=== PATIENT | female | born 1985 | race Caucasian/White ===

== ENCOUNTER 2023-01-18 12:59 | Outpatient (AMB) | payer OTHER, SELFPAY ==
--- NOTE | 2023-01-18 13:34 | MHC.OFFWIV ---
Intake Vital Signs 01/18/23 13:35 Height 5 ft 7 in Weight 253 lb BMI 39.6 BP 112/70 Blood Pressure Location Lt brachial Position Sitting Pulse 114 H Pulse Source Pulse Oximeter Temp 97 F Temp Source Temporal Artery Scan Pulse Oximetry (%) 99 Oxygen Delivery Method Room Air Intake Visit Reasons: EST/sinus inf? Intake Note: Pt is here c/o possible sinus infection. Pt states since yesterday she has had a soft cough, and chest congestion. Patient Tobacco Use Status: Never used Tobacco Allergies No Known Allergies Allergy (Verified 01/18/23 13:38) Do you need a note to return to daycare/school/sports/work: No HPI EST/sinus inf? HPI Details Patient presents for a sick visit. Reporting symptoms of sinus congestion, sore throat and difficulty swallowing. Low-grade fever. No family member is sick. No recent travel. Patient reports symptoms of malaise and fatigue. PFSH Social History Patient Tobacco Use Status: Never used Tobacco Physical Exam Vital Signs: Last Vital Signs Temp 97 F 01/18/23 13:35 Pulse 114 H 01/18/23 13:35 BP 112/70 01/18/23 13:35 Pulse Ox 99 01/18/23 13:35 Oxygen Delivery Method Room Air 01/18/23 13:35 BMI result Body Mass Index 39.6 Const General: cooperative and healthy appearing Nutritional Appearance: well nourished Orientation/consciousness: patient oriented x3 Limitations: no limitations HEENT Head: Yes normal to inspection Eyes General: appearance normal, both eyes and all related structures Neck Neck: Yes normal visual inspection Chest Chest palpation & inspection: normal palpation of entire chest wall Resp Effort & Inspection: normal respiratory effort Neuro General: patient oriented x3 Assessment & Plan Assessment & Plan (1) Upper respiratory tract infection: Code(s): J06.9 - Acute upper respiratory infection, unspecified Plan: Antibiotics ordered. Increase fluid intake. Tylenol for aches and pains. If symptoms worsen, follow-up here for a recheck. Coding Level of Care Code Est Pt Level 3 (41478) Diagnoses Upper respiratory tract infection J06.9
[2023-01-18 13:35] VITALS: BP 112/70; PULSE 114; TEMP 36.1; O2SAT 99; BMI 39.6
== END 2023-01-18 14:46 | disposition home or self-care (01) ==
PROVIDERS: Visit Provider Internal Medicine
DX: J06.9 Acute upper respiratory infection, unspecified (principal)
CPT/HCPCS: 99213

== ENCOUNTER 2024-04-15 05:16 | Emergency (ER) | payer OTHER, SELFPAY ==
--- NOTE | ~2024-04-15 | XR_ITS ---
EXAMINATION: XR CHEST CLINICAL INFORMATION: cough, SOB COMPARISON: None available. TECHNIQUE: Frontal view of the chest was obtained. FINDINGS: Normal appearance of the cardiomediastinal structures. No effusions or pneumothoraces. Normal pattern of pulmonary vasculature. No focal pulmonary consolidation. XR/XR chest 1V IMPRESSION: Normal chest. Lungs clear. Electronically signed by: Sagn Oquendo MD 04/15/2024 05:41 AM [facility]
[2024-04-15 05:19] VITALS: BP 141/92; PULSE 110; RESP 22; TEMP 37.5; O2SAT 95; BMI 39.1
--- NOTE | 2024-04-15 05:32 | ED.URI ---
HPI - URI/Sore Throat General Chief Complaint: Upper Respiratory Symptoms Stated Complaint: 89 O2, SOB Time Seen by Provider: 04/15/24 05:30 Source: patient and old records reviewed Mode of arrival: EMS Limitations: no limitations History of Present Illness ED Provider: FANI CHARLES Narrative: 38 yo female with PMH of asthma, just had COVID one month ago has had at least 3 vaccinations did well with COVID illness now here with c/o 1 week cough dyspnea shortness of breath body aches - fevers and chills. Went to this week negative covid and flu - Rx OTC medications. She does have inhaler at home. Comes in today with worsening cough, dyspnea not feeling well. No recent travel and not around sick children. Able to tolerate PO. MD elicited complaint: fever and cough Onset (ago): day(s) (7) Consistency: intermittent Severity: moderate Able to tolerate fluids by mouth: Yes Exacerbating factors: other (coughing, exertion) Relieving factors: NSAID and other Associated symptoms: fever, chills, myalgias, headache, rhinorrhea, cough and shortness of breath Treatments prior to arrival: cold medicine Related Data Home Medications ?Medication ?Instructions ?Recorded ?Confirmed albuterol sulfate 90 mcg/actuation 1 inh inhalation ONCE 01/18/23 aerosol inhaler buspirone 30 mg tablet 20 mg PO BID 01/18/23 methylphenidate HCl 36 mg 36 mg PO QAM 01/18/23 tablet,extended release 24 hr (Concerta) prazosin 2 mg capsule 2 mg PO DAILY 01/18/23 trazodone 150 mg tablet 225 mg PO DAILY 01/18/23 triamcinolone acetonide 0.1 % 1 appl topical DAILY 01/18/23 topical cream venlafaxine 100 mg tablet 225 mg PO DAILY 01/18/23 Previous Rx's ?Medication ?Instructions ?Recorded azithromycin 250 mg tablet See Rx Instructions PO .COMPLEX #6 01/18/23 tabs azithromycin 250 mg tablet See Rx Instructions PO .COMPLEX #6 04/15/24 tabs hydrocodone-homatropine 5 mg-1.5 5 ml PO Q6H PRN cough #80 mL 04/15/24 mg/5 mL oral syrup prednisone 20 mg tablet 40 mg (2 x 20 mg) PO DAILY 5 days 04/15/24 #10 tabs Allergies Allergy/AdvReac Type Severity Reaction Status Date / Time No Known Allergies Allergy Verified 04/15/24 05:24 Review of Systems Review of Systems: Constitutional : pos Fever, pos Chills ENT/Mouth : No Hoarseness, No sore throat, No Rhinorrhea Eyes: No Redness, No Discharge, No Vision Changes Cardiovascular : No Chest Pain, positive SOB, positive Dyspnea on Exertion, No Edema Respiratory : positive Cough, No Sputum, positive Wheezing, Gastrointestinal : No Nausea, No Vomiting, No Diarrhea, No abdominal Pain Genitourinary : No Dysuria, No Hematuria Musculoskeletal : No joint pain, No Myalgias Skin : No rash Neuro : pos Weakness, No Numbness, No Headache Psych : No anxiety, depression All other systems reviewed and are negative [facility] Past Medical History Attestation statement: The following information was validated with the patient. Source: old records reviewed Medical History (Updated 04/15/24 @ 05:59 by Orin Adan DO) Asthma Social History Social History Patient Tobacco Use Status: Never used Tobacco Smoked in Last 30 Days: No Use of substances other than those prescribed or required for medical reasons: No Advance Directives: No Advance Directives Information Provided: Yes Do you have a plan to hurt others: No Plan Physical Exam Vital Signs: Vital Signs: Last Vital Signs Temp 98.5 F 04/15/24 06:53 Pulse 114 H 04/15/24 06:53 Resp 18 04/15/24 06:53 BP 114/67 04/15/24 06:53 Pulse Ox 95 04/15/24 06:53 O2 Del Method Room Air 04/15/24 06:53 BMI result Body Mass Index 39.1 Appearance: Alert. Oriented X3. No acute distress. Eyes: Pupils equal, round and reactive to light. ENT: Pharynx normal. Neck: Normal inspection. Neck supple. CVS: Normal heart rate and rhythm. Pulses normal. Respiratory: No respiratory distress. Breath sounds mild diffuse posterior exp wheeze, rhonchi noted Abdomen: Soft and nontender. Skin: Skin warm and dry. Normal skin color. Normal skin turgor. Extremities: No lower extremity edema. No calf ttp Neuro: Oriented X 3. No motor deficit. No sensory deficit. Medications Administered Discontinued Medications Generic Name Dose Route Start Last Admin Trade Name Freq PRN Reason Stop Dose Admin Acetaminophen 650 mg 04/15/24 05:29 04/15/24 05:45 Acetaminophen 325 Mg Tablet PO 04/15/24 05:30 650 mg ONCE ONE Administration Albuterol Sulfate 7.5 mg/ 10 mg 04/15/24 05:49 04/15/24 05:54 Albuterol Sulfate 2.5 mg INHALE 04/15/24 05:50 10 mg ONCE ONE Administration Sodium Chloride 1,000 mls @ 999 mls/hr 04/15/24 05:29 04/15/24 05:46 Ns IV 04/15/24 06:29 999 mls/hr .Q1H1M ONE Administration Ketorolac Tromethamine 15 mg 04/15/24 05:37 04/15/24 05:44 Ketorolac Tromethamine 15 Mg/Ml Vial IVPUSH 04/15/24 05:38 15 mg ONCE ONE Administration Methylprednisolone Sodium Succinate 60 mg 04/15/24 05:37 04/15/24 05:45 Methylprednisolone Sod Succ 125 Mg/2 Ml Vial IVPUSH 04/15/24 05:38 60 mg ONCE ONE Administration Medical Decision Making Medical Decision Making MDM Narrative: 38 yo female with PMH of asthma, just had COVID one month ago now here with 1 week cough, fevers, chills not feeling well and some rhonchi - wheezes. No travel or sick contacts at this time basic labs, CXR for pneumonia, viral panel and start on nebs or steroids - she is not hypoxic or labored seems more viral vs bronchitis Differential Diagnosis Differential Diagnoses: The differential diagnosis associated with the presentation includes viral syndrome vs bronchitis Admission/Observation Consideration of admission/observation: Escalation of care including admission/observation considered no hypoxia, not labored has not been on abx or steroids will trial as outpatient feels safe to go home Lab Data MDM Lab Attestation statement: I reviewed the patient's lab results. 04/15/24 05:51 04/15/24 05:51 Labs: Lab Results 04/15/24 04/15/24 Range/Units 05:48 05:51 WBC 12.6 H (4.8-10.8) X10*3/uL RBC 4.84 (4.20-5.50) X10*6/uL Hgb 14.0 (12.0-16.0) g/dl Hct 41.3 (37.0-47.0) % MCV 85.3 (80.0-98.0) fL MCH 28.9 (27.0-33.0) pg MCHC 33.9 (31.0-35.0) g/dl RDW 12.4 (11.0-16.0) % Plt Count 207 (160-400) X10*3/uL MPV 10.2 (9.4-12.3) fL Immature Gran % (Auto) 0.3 (0.0-0.4) % Neut % (Auto) 86.8 H (45-73) % Lymph % (Auto) 6.6 L (20-40) % [place] % (Auto) 5.9 (2-11) % Eos % (Auto) 0.2 (0-4) % Baso % (Auto) 0.2 (0-2) % Lymph # (Auto) 0.8 L (1.2-4.9) X10*3/uL [place] # (Auto) 0.8 (0.1-1.2) X10*3/uL Eos # (Auto) 0.0 (0.0-0.4) X10*3/uL Baso # (Auto) 0.0 (0.0-0.2) X10*3/uL Abs Immat Gran (auto) 0.04 H (0.00-0.03) X10*3/uL Absolute Neuts (auto) 10.9 H (2.0-8.3) x10*3/uL Absolute Nucleated RBC 0.000 (0.0-0.012) X10*3/uL Nucleated RBC % (auto) 0.0 (0.0-0.2) /100WBC Sodium 135 (135-145) mmol/L Potassium 4.0 (3.3-5.1) mmol/L Chloride 105 (96-108) mmol/L Carbon Dioxide 20 L (22-29) mmol/L Anion Gap 14 (12-20) BUN 13 (9-16) mg/dL Creatinine 0.83 (0.5-1.4) mg/dL Estim Creat Clear Calc 120.5 Estimated GFR > 60 Random Glucose 102 (60-115) mg/dL Calcium 8.6 (8.4-10.2) mg/dL Total Bilirubin 0.4 (0.0-1.0) mg/dL AST 15 (5-31) U/L ALT 10 (0-31) U/L Alkaline Phosphatase 78 (39-117) U/L Total Protein 7.3 (6.5-8.0) g/dL Albumin 3.9 (3.5-5.0) g/dL Beta HCG, Quant < 2 mIU/mL Influenza Type A (PCR) NEGATIVE (Negative) Influenza Type B (PCR) NEGATIVE (Negative) RSV RNA Qual (PCR) NEGATIVE (Negative) SARS-CoV-2 RNA (RT-PCR) NEGATIVE (Negative) Independent Interpretation I performed an independent interpretation of an: Plain X-Ray (normal ) Radiology Impression Discussion of test interpretation with radiology: I have reviewed the radiologist's reading. External Record Review External record reviewed: Outpatient record Prescription Management I considered prescription management with: Pain Medication, Antibiotic and Other Discharge Plan Discharge Clinical Impression: Bronchitis Patient Disposition: Home, Self-Care Instructions: Acute Bronchitis (ED) Additional Instructions: chest xray is normal please continue your inhaler take antibiotic and prednisone as prescribed return for any worsening symptoms or concerns so short of breath you cannot walk to your bathroom chest pain On azithromycin, call your provider if you develop new ringing in your ears, new problems hearing, dizziness, palpitations, abdominal pain, nausea, or diarrhea. Prescriptions: New azithromycin 250 mg tablet See Rx Instructions .ROUTE .COMPLEX Qty: 6 0RF Rx Instructions: For 250 mg dose pack: take 500 mg today (day 1), then 250 mg for 4 days (days 2-5) prednisone 20 mg tablet 40 mg PO DAILY 5 Days Qty: 10 0RF hydrocodone-homatropine 5-1.5 mg/5 mL syrup 5 ml PO Q6H PRN (Reason: cough) Qty: 80 0RF Rx Instructions: Partial Fill upon patient request. No Action methylphenidate HCl [Concerta] 36 mg tablet extended release 24hr 36 mg PO QAM prazosin 2 mg capsule 2 mg PO DAILY trazodone 150 mg tablet 225 mg PO DAILY venlafaxine 100 mg tablet 225 mg PO DAILY buspirone 30 mg tablet 20 mg PO BID albuterol sulfate 90 mcg/actuation HFA aerosol inhaler 1 inh inhalation ONCE triamcinolone acetonide 0.1 % cream 1 appl topical DAILY azithromycin 250 mg tablet See Rx Instructions PO .COMPLEX Qty: 6 0RF Rx Instructions: take 500 mg today (day 1), then 250 mg for 4 days (days 2-5) PO Print Language: Guyanese
[2024-04-15] MEDS: Ketorolac Tromethamine 15 MG/ML VIAL IVPUSH (05:44)
[2024-04-15] MEDS: Acetaminophen 325 MG TABLET 650 MG PO (05:45)
[2024-04-15] MEDS: methylPREDNISolone Sod Succ 125 MG/2 ML VIAL 60 MG IVPUSH (05:45)
[2024-04-15] MEDS: 0.9 % Sodium Chloride 1,000 ML 999 ML IV (05:46)
[2024-04-15] MEDS: Albuterol Sulfate 7.5 MG, Albuterol Sulfate (0.083%) 2.5 MG 10 MG INHALE (05:54)
[2024-04-15 05:55] LABS: Basophils Percent Auto 0.2 % (0-2); Eosinophils Percent Auto 0.2 % (0-4); Hematocrit 41.3 % (37.0-47.0); Imm Gran Abs Auto 0.04 X10*3/uL (0.00-0.03); Imm Gran Pct Auto 0.3 % (0.0-0.4); Lymphocytes Absolute Auto 0.8 X10*3/uL (1.2-4.9); Lymphocytes Percent Auto 6.6 % (20-40); MANUAL DIFF FLAG NO; Mean Corpuscular HGB Conc 33.9 g/dl (31.0-35.0); Mean Corpuscular Hemoglobin 28.9 pg (27.0-33.0); Mean Corpuscular Volume 85.3 fL (80.0-98.0); Mean Platelet Volume 10.2 fL (9.4-12.3); Monocytes Absolute Auto 0.8 X10*3/uL (0.1-1.2); Monocytes Percent Auto 5.9 % (2-11); Neutrophils Absolute Auto 10.9 x10*3/uL (2.0-8.3); Neutrophils Percent Auto 86.8 % (45-73); Platelet Count 207 X10*3/uL (160-400); Red Blood Count 4.84 X10*6/uL (4.20-5.50); Red Cell Distribution Width 12.4 % (11.0-16.0); White Blood Count 12.6 X10*3/uL (4.8-10.8)
[2024-04-15 05:58] VITALS: PULSE 117; RESP 16; O2SAT 96
[2024-04-15 06:19] LABS: Alanine Aminotransferase 10 U/L (0-31); Albumin Level 3.9 g/dL (3.5-5.0); Alkaline Phosphatase 78 U/L (39-117); Anion Gap 14 (12-20); Aspartate Amino Transferase 15 U/L (5-31); Bilirubin Total 0.4 mg/dL (0.0-1.0); Blood Urea Nitrogen 13 mg/dL (9-16); Calcium 8.6 mg/dL (8.4-10.2); Carbon Dioxide 20 mmol/L (22-29); Chloride 105 mmol/L (96-108); Creatinine Clr Calc Pharmacy 120.5; Estimated Glomerular Filt Rate > 60; Glucose Random 102 mg/dL (60-115); Sodium 135 mmol/L (135-145); Total Protein 7.3 g/dL (6.5-8.0)
[2024-04-15 06:20] LABS: HCG Quantitative < 2 mIU/mL
[2024-04-15 06:32] LABS: Influenza A PCR NEGATIVE (Negative); Influenza B PCR NEGATIVE (Negative); Resp Syncy Virus RNA Qual PCR NEGATIVE (Negative); SARS COV2 PCR INHOUSE NEGATIVE (Negative)
[2024-04-15 06:34] VITALS: O2SAT 95
--- NOTE | 2024-04-15 06:36 | PC.NURSE ---
Iv placed, labs collected and sent, breathing treatment given by respiratory
[2024-04-15 06:53] VITALS: BP 114/67; PULSE 114; RESP 18; TEMP 36.9; O2SAT 95
[2024-04-15 07:21] VITALS: BP 114/67; PULSE 114; RESP 18; TEMP 36.9; O2SAT 95
== END 2024-04-15 07:21 | disposition home or self-care (01) ==
PROVIDERS: Emergency Provider Emergency Medicine; PCP Internal Medicine
DX: J40 Bronchitis, not specified as acute or chronic (principal); Z03.818 Encounter for observation for suspected exposure to other biological agents ruled out; R06.02 Shortness of breath; R05.9 Cough, unspecified
CPT/HCPCS: 0241U; 71045; 80053; 84702; 85025; 94640; 96361; 96374; 96375; 99284; 99285; J1885; J2919

== ENCOUNTER 2024-06-09 09:55 | Outpatient (AMB) | payer OTHER, SELFPAY ==
--- NOTE | 2024-06-09 10:21 | A.OFFPC_ITS ---
Vital Signs 06/09/24 10:32 Height 5 ft 7 in Weight 268 lb 4 oz BMI 42.0 BP 114/70 Blood Pressure Location Rt brachial Position Sitting Respiration 14 Pulse 90 Pulse Source Pulse Oximeter Pulse Oximetry (%) 97 Oxygen Delivery Method Room Air Intake Visit Reasons: DOCUMENTATION SPEC-EST CARE Intake Note: establish care/ audiology referral rhuemotologist referral acid reflux and a cough since nov pt has also been experiencing dizziness when standing. Is last menstrual period known: Yes Last menstrual period: 06/09/24 Post menopausal: No Patient : No Allergies No Known Allergies Allergy (Verified 06/09/24 10:26) Medication List - Last Reconciled 06/09/24 by Saurav Mendoza MD albuterol sulfate 90 mcg/actuation 1 inh inhalation ONCE methylphenidate HCl ER 36 mg PO DAILY trazodone 225 mg PO DAILY triamcinolone acetonide 0.1% 1 appl topical DAILY venlafaxine 225 mg PO DAILY Tobacco use date assessed: 06/09/24 Dental Screening Dental Screen Date: 06/09/24 Did you have a dental visit in the last 12 months?: No Did you have a dental problem in the last 6 months where you did not have access to dental care?: No HPI DOCUMENTATION SPEC-EST CARE HPI Details New Patient? ?? Prior PCP:? [place] in [place]. Last office visit/CPE:? 2020 Acute issue(s):? Psoriatic Arthritis. Was on Humira Cough since Mar ?? PMHx:? Psoriasis, Psoriatic Arthritis, Asthma, Celiac, ADD, Anxiey & Depression, SurgHx:?None FHx:?Mom: Weight, Depression Dad: Unknown. SocHx: Nonsmoker, EtOH 1 dr a few nights a week. 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 1. Little interest or pleasure in doing things: not at all 2. Feeling down, depressed, or hopeless: not at all 3. Trouble falling or staying asleep, or sleeping too much: not at all 4. Feeling tired or having little energy: not at all 5. Poor appetite or overeating: not at all 6. Feeling bad about yourself - or that you are a failure or have let yourself or your family down: several days 7. Trouble concentrating on things, such as reading the newspaper or watching television: several days 8. Moving or speaking so slowly that other people could have noticed. Or the opposite - being so fidgety or restless that you have been moving around a lot more than usual: not at all 9. Thoughts that you would be better off or of hurting yourself in some way: not at all Total score: 2 Depression Screening Interpretation: Negative Depression Screening Done: Yes 65518 - PHQ-9 Billing: Yes Source: Developed by Drs. John Danielson, Anita Maria, German Alvarez and colleagues, with an educational vic from [employer]. Thrive Questionnaire Date Thrive assessed: 06/09/24 I am a: Patient What is your living situation today?: I have a steady place to live Within the past 12 months, did the food you bought not last and you didn't have the money to get more?: Sometimes True Within the past 12 months, did you worry whether your food would run out before you got money to buy more?: Sometimes True Do you have trouble paying for medicines?: No Do you have trouble getting transportation to medical appointments?: Yes Do you have trouble paying your heating and electricity bill?: No Do you have trouble taking care of your child, family member or friend?: No Do you have trouble with day-to-day activities such as bathing, preparing meals, shopping, managing finances, etc.?: Yes Are you currently unemployed and looking for a job?: No Are you interested in more education?: No Please select the resources that you would like help with: None Currently or been in a relationship where the following occur: No concerns reported THRIVE Score: 3 AUDIT C Alcohol Use Questionnaire (AUDIT-C) 1. How often do you have a drink containing alcohol?: 2-4 times a month 2. How many drinks containing alcohol do you have on a typical day when you are drinking?: 1 or 2 3. How often do you have six or more drinks on one occasion?: Never Total Score: 2 MICHAEL-7 AMB Questionnaire MICHAEL-7 Date MICHAEL - 7 assessed: 06/09/24 Feeling nervous, anxious, or on edge: 0 = Not at all Not being able to stop or control worryin = Not at all Worrying too much about different things: 0 = Not at all Trouble relaxin = Several days Being so restless that it is hard to sit still: 1 = Several days Becoming easily annoyed or irritable: 0 = Not at all Feeling afraid as if something awful might happen: 0 = Not at all Total MICHAEL-7 score (0-4 normal; 5-9 mild; 10-14 moderate; 15-21 severe): 2 Source: Developed by Drs. John Danielson, Anita Maria, German Alvarez and colleagues, with an educational vic from [employer]. Review of Systems Const Denies chills, Denies fatigue, Denies fever(s), Denies headache(s) and Denies weakness ENT Denies dizziness and Denies headache(s) Card Denies chest pain, Denies lightheadedness, Denies dyspnea and Denies other (Palpitations) Resp Denies cough, Denies dyspnea, Denies wheezing and Denies other ( shortness of breath) Musc Denies numbness and Denies tingling Neuro Denies dizziness, Denies headache(s), Denies numbness, Denies tingling, Denies paresthesias and Denies weakness Psych Denies anxiety and Denies depression Endo Denies fatigue Aller/Immun Denies wheezing Physical exam (Primary Care) Vital Signs: Last Vital Signs Pulse 90 06/09/24 10:32 Resp 14 06/09/24 10:32 BP 114/70 06/09/24 10:32 Pulse Ox 97 06/09/24 10:32 Oxygen Delivery Method Room Air 06/09/24 10:32 BMI result Body Mass Index 42.0 Tobacco/Smoking Status: Tobacco use Status Tobacco use date assessed 06/09/24 06/09/24 10:32 Patient Tobacco Use Status Never used Tobacco 06/09/24 10:32 e-Cigarette/Vaping Use Never Used 06/09/24 10:32 PHQ-9: PHQ-9 Score PHQ-9: Total score 2 06/09/24 10:36 Depression Screening Interpretation: Negative Thrive Assessment: Date of Thrive Assessment Date Thrive assessed 06/09/24 06/09/24 10:32 Currently or been in a relationship where the following occur: No concerns reported Const General: no acute distress and well developed Nutritional Appearance: well nourished Orientation/consciousness: patient oriented x3 HENMT Head: Yes normocephalic and Yes atraumatic Eyes General: appearance normal, both eyes and all related structures Pupils: Equal, round and reactive pupils present EOM: EOMs intact bilaterally Resp Effort & Inspection: normal respiratory effort Auscultation: clear to auscultation bilaterally Cardio Rate: regular rate Rhythm: regular rhythm Heart sounds: S1 normal heart sound present, S2 normal heart sound present, no gallops, no murmurs and no rubs Neuro General: patient oriented x3 and gait normal Cranial nerves: Yes Equal, round and reactive pupils present Psych Affect: normal affect Coding Level of Care Code New Pt Level 4 (72887) Diagnoses Psoriatic arthritis L40.50 Cough R05.9 Anxiety with depression F41.8 Asthma J45.909 Adult celiac disease K90.0 Difficulty concentrating R41.840 Psoriasis L40.9 GERD (gastroesophageal reflux disease) K21.9 Laboratory exam ordered as part of routine general medical examination Z00.00 Additional Codes PHQ-9 - 04976 - PHQ-9 Billing: Yes ([id number]) Assessment & Plan Assessment & Plan (1) Psoriatic arthritis: Code(s): L40.50 - Arthropathic psoriasis, unspecified Category: Medical Plan: History?of?psoriatic?arthritis?and?Humira?use Will?refer?her?to?Rheumatology (2) Cough: Code(s): R05.9 - Cough, unspecified Category: Medical Plan: Chronic?cough?for?the?last?2?months. Patient?does?have?a?history?of?asthma?and?also?GERD She?has?an?albuterol?inhaler?and?I?am?giving?a?controller?medication?well Will?also?have?her?trial?medication?to?suppress?acid?as?you?may?of?microaspirati on?worsening?cough Checking?chest?x-ray?as?this?has?been?going?on?2?months (3) Anxiety with depression: Code(s): F41.8 - Other specified anxiety disorders Category: Medical Plan: Patient?has?a?psychiatrist?and?is?taking?venlafaxine,?trazodone?and?also?has?met hylphenidate?for?difficulty?concentrating - patient?states?diag nosis?of?ADD?but?I?do?not?have?records?at?present. Appears?stable Continue?current?medications?and?follow-up?with?Psychiatry?as?recommended (4) Asthma: Code(s): J45.909 - Unspecified asthma, uncomplicated Category: Medical Plan: She?is?currently?only?taking?a?rescue?inhaler Has?had?a?chronic?cough?since March?and?lungs?are?clear?with?mild?coarseness Giving?her?a?controller?inhaler?as?well Controlling?acid?reflux Will?follow (5) Adult celiac disease: Code(s): K90.0 - Celiac disease Category: Medical Plan: Patient?following?dietary?restrictions (6) Difficulty concentrating: Code(s): R41.840 - Attention and concentration deficit Category: Medical Plan: As?above,?managed?by?her?psychiatrist?with?methylphenidate (7) Psoriasis: Code(s): L40.9 - Psoriasis, unspecified Category: Medical Plan: History?of?psoriasis?and?psoriatic?arthritis Referring?her?to?Dermatology?and?Rheumatology (8) GERD (gastroesophageal reflux disease): Code(s): K21.9 - Gastro-esophageal reflux disease without esophagitis Category: Medical Plan: As?above?starting?medications?to control?GERD (9) Laboratory exam ordered as part of routine general medical examination: Code(s): Z00.00 - Encounter for general adult medical examination without abnormal findings Category: Medical Plan: Check?labs Plan Patient?also?notes?she?has?concerns?about?hypermobility.??Patient?also?notes?she ?has?concerns?for [place]. We?can?continue?to?address?her?concerns?with?additional?visits. Patient?appears?well?today.??No?acute?distress?and?blood?pressure?and?vitals?are ?within?normal?limits Orders: Orders Comprehensive Inlet. Panel Fast Today Z00.00 - Encounter for general adult medical examination without abnormal findings TSH reflex Free T4 Today Z00.00 - Encounter for general adult medical examination without abnormal findings XR chest 2V Today R05.9 - Cough, unspecified Complete Blood Count Auto Diff Today Z00.00 - Encounter for general adult medical examination without abnormal findings Microalbumin, Random (w Creat) Today I10 - Essential (primary) hypertension Lipid Panel Today Z00.00 - Encounter for general adult medical examination without abnormal findings UA and rflx microscopic Today Z00.00 - Encounter for general adult medical examination without abnormal findings Referrals Rheumatology Referral L40.50 - Arthropathic psoriasis, unspecified Dermatology Referral L40.9 - Psoriasis, unspecified Medications: New famotidine 20 mg PO BEDTIME 30 days 30 tabs 2RF budesonide-formoterol 160-4.5 mcg/actuation (Symbicort) 1 inh inhalation BID 30 days 10.2 grams 2RF J45.909 - Unspecified asthma, uncomplicated omeprazole 20 mg PO DAILY 30 days 30 caps 3RF
[2024-06-09 10:32] VITALS: BP 114/70; PULSE 90; RESP 14; O2SAT 97; BMI 42.0
== END 2024-06-09 11:10 | disposition home or self-care (01) ==
PROVIDERS: PCP Family Medicine; Visit Provider Family Medicine
DX: L40.50 Arthropathic psoriasis, unspecified (principal); R05.9 Cough, unspecified; F41.8 Other specified anxiety disorders; J45.909 Unspecified asthma, uncomplicated; K90.0 Celiac disease; R41.840 Attention and concentration deficit; L40.9 Psoriasis, unspecified; K21.9 Gastro-esophageal reflux disease without esophagitis; Z00.00 Encounter for general adult medical examination without abnormal findings

== ENCOUNTER → 2024-06-09 09:55 | Outpatient (BNVA) | payer OTHER, SELFPAY | PROVIDERS: PCP Family Medicine; Visit Provider Family Medicine | DX: L40.50 Arthropathic psoriasis, unspecified (principal); R05.9 Cough, unspecified; F41.8 Other specified anxiety disorders; J45.909 Unspecified asthma, uncomplicated; K90.0 Celiac disease; R41.840 Attention and concentration deficit; L40.9 Psoriasis, unspecified; K21.9 Gastro-esophageal reflux disease without esophagitis | CPT/HCPCS: 96127; 99202 ==

== ENCOUNTER 2024-08-18 11:56 | Outpatient (AMB) | payer OTHER, SELFPAY ==
--- NOTE | 2024-08-18 12:06 | MHC.PC.OV ---
Vital Signs 08/18/24 12:15 Height 5 ft 7 in BMI Reason not done Patient refused/unable BP 118/68 Blood Pressure Location Lt brachial Position Sitting Respiration 12 Pulse 88 Pulse Source Pulse Oximeter Temp 97.4 F Temp Source Oral Pulse Oximetry (%) 98 Oxygen Delivery Method Room Air Intake Visit Reasons: CPE with f/u labs and health maint. Intake Note: CPE and follow up on labs [employer] Required: No Allergies No Known Allergies Allergy (Verified 08/18/24 12:25) Medication List - Last Reconciled 08/18/24 by Rita Saavedra, [facility]- albuterol sulfate 90 mcg/actuation 1 inh inhalation ONCE budesonide-formoterol 160-4.5 mcg/actuation (Symbicort) 1 inh inhalation BID 30 days calcipotriene 0.005% 1 appl topical BID famotidine 20 mg PO BEDTIME 30 days methylphenidate HCl ER 36 mg PO DAILY omeprazole 20 mg PO DAILY 30 days trazodone 225 mg PO DAILY triamcinolone acetonide 0.1% 1 appl topical DAILY venlafaxine 225 mg PO DAILY Tobacco use date assessed: 08/18/24 Dental Screening Dental Screen Date: 08/18/24 Did you have a dental visit in the last 12 months?: Yes Did you have a dental problem in the last 6 months where you did not have access to dental care?: No Was dental information given to patient?: Patient has dentist HPI HPI Comments History of Present Illness Details 38 y/o F with Psoriasis, Psoriatic Arthritis, Asthma, Celiac, ADD, Anxiey & Depression, GERD SurgHx: None FHx: Mom: Weight, Depression Dad: Unknown. SocHx: Nonsmoker, EtOH 1 dr a few nights a week. No drugs Health Maintenance Tdap admin today Flu admin today Pap referred Specialists Psych Derm first appt in a few months Rheum Optho wears glasses last exam 5 years ago New referral placed today The patient is a 38-year-old female presenting for a wellness visit and preventative health maintenance. - Anxiety and depression are present, and the patient is under psychiatric management with effective treatment. - History includes ADD/ADHD. Needs new prescriber. was at [facility]. has a counselor - She has been referred to [facility] for a Pap smear, and routine breast examination guidance was discussed. - Asthma is self-managed currently without the need for specialist follow-up. Cough improved entirely after starting famotidine and omeprazole. PCP ordered CXR She did not have this done yet; mutually agreed on cancelling this order. Recovering from L foot fracture, fell on ice while walking dogs; managed by orth; starts PT next week Review of Systems - Respiratory: Reports a history of asthma. - Psychiatric: Reports anxiety and depression. - Neuropsychological: Reports history of ADD/ADHD. - Immunologic: Confirms upcoming flu and tetanus vaccines. General: Well developed, well nourished, in no acute distress. Appears stated age. Head: Normocephalic, atraumatic. Eyes: Pupils are equal, round and reactive to light and accommodation. Conjunctivae are clear. Vision grossly normal. Ears: TMs clear AU, EACS WNL Nose: Patent, without discharge. Mouth: There are no ulcers or lesions noted. No inflammation, no post nasal drip, no plaques nor exudates. Neck: Supple, no adenopathy or thyromegaly. Lungs: Clear to auscultation bilaterally. No rales, rhonchi or wheeze noted. Good air flow in all arceo. Heart: Regular rate and rhythm. No murmurs, click, rubs or gallops are noted. Abdomen: Bowel sounds present in all quadrants. The abdomen is soft, nontender, with no masses or organomegaly noted. No hernias are noted. Musculoskeletal: Joints are nontender, without swelling, redness, or effusions. Range of motion is observed to be normal. Pulses: Peripheral pulses are equal and palpable bilaterally. Extremities: No clubbing, cyanosis nor edema is noted. L foot in walking boot Neurologic: Gait and station normal. Cranial Nerves 2-12 intact. Motor strength grossly symmetrical and intact. No sensory loss. Balance normal. Skin: No rashes, ulcers, or lesions noted. Turgor is good. Skin color is good. Hair and nails are without abnormalities. Psych: Normal eye contact, affect and mood appropriate, and normal interactions. Patient is alert and appropriate to context. Discussion Notes During the visit, we discussed the importance of maintaining up-to-date immunizations, and the patient agreed to receive both the flu and tetanus vaccines today. The management of her anxiety and depression was reviewed, and her psychiatric treatment appears effective. I recommended continued observation without changes and encouraged follow-up with [facility] for her scheduled Pap smear. Asthma is well-controlled, and there's no current need for pulmonology referral. The patient confirmed routine eye care with prescription glasses, and no concerns were reported regarding vision. Plan: Refer to optho refer to [facility] for prescriber Cont all meds Cont care w/ care team Tdap and flu today Get labs ordered by Dr Abad in [place] 6 mo routine fu with Dr Pollo savage prn Patient was informed and verbally consented to the use of an ambient scribe for clinic note documentation during this visit. [facility], [facility] Medical History (Updated 08/18/24 @ 13:10 by Rita Saavedra, [facility]) Abnormal endoscopy of upper gastrointestinal tract Adult celiac disease Asthma Psoriasis Psoriatic arthritis Family History (Updated 06/09/24 @ 10:25 by Narayan Rojas [facility]) Mother Substance abuse FH: mental illness Social History (Updated 06/09/24 @ 10:25 by NICK Bob) Housing: House Patient Tobacco Use Status: Never used Tobacco e-Cigarette/Vaping Use: Never Used Second Hand Smoke Exposure: No Substance Use Type: Marijuana service: No Current occupational status: employed Current occupation: Where I've Been Current occupational exposures/hazards: No Cognitive needs: No Hearing needs: No Vision needs: Yes Questionnaire PHQ-9 Over the last 2 weeks, how often have you been bothered by any of the following problems? 1. Little interest or pleasure in doing things: not at all 2. Feeling down, depressed, or hopeless: not at all 3. Trouble falling or staying asleep, or sleeping too much: not at all 4. Feeling tired or having little energy: not at all 5. Poor appetite or overeating: not at all 6. Feeling bad about yourself - or that you are a failure or have let yourself or your family down: not at all 7. Trouble concentrating on things, such as reading the newspaper or watching television: not at all 8. Moving or speaking so slowly that other people could have noticed. Or the opposite - being so fidgety or restless that you have been moving around a lot more than usual: not at all 9. Thoughts that you would be better off or of hurting yourself in some way: not at all Total score: 0 Depression Screening Interpretation: Negative Depression Screening Done: Yes 13710 - PHQ-9 Billing: Yes Source: Developed by Drs. John Danielson, German Javier and colleagues, with an educational vic from [employer]. Thrive Questionnaire Date Thrive assessed: 08/18/24 I am a: Patient What is your living situation today?: I have a steady place to live Within the past 12 months, did the food you bought not last and you didn't have the money to get more?: Sometimes True Within the past 12 months, did you worry whether your food would run out before you got money to buy more?: Sometimes True Do you have trouble paying for medicines?: No Do you have trouble getting transportation to medical appointments?: Yes Do you have trouble paying your heating and electricity bill?: No Do you have trouble taking care of your child, family member or friend?: No Do you have trouble with day-to-day activities such as bathing, preparing meals, shopping, managing finances, etc.?: Yes Are you currently unemployed and looking for a job?: No Are you interested in more education?: No Please select the resources that you would like help with: None Currently or been in a relationship where the following occur: No concerns reported THRIVE Score: 3 AUDIT C Alcohol Use Questionnaire (AUDIT-C) 1. How often do you have a drink containing alcohol?: Never 3. How often do you have six or more drinks on one occasion?: Never Total Score: 0 Score Reviewed/Action Taken: Yes MICHAEL-7 AMB Questionnaire MICHAEL-7 Date MICHAEL - 7 assessed: 08/18/24 Feeling nervous, anxious, or on edge: 0 = Not at all Not being able to stop or control worryin = Not at all Worrying too much about different things: 0 = Not at all Trouble relaxin = Not at all Being so restless that it is hard to sit still: 0 = Not at all Becoming easily annoyed or irritable: 0 = Not at all Feeling afraid as if something awful might happen: 0 = Not at all Total MICHAEL-7 score (0-4 normal; 5-9 mild; 10-14 moderate; 15-21 severe): 0 Source: Developed by Anita Marroquin Kurt Kroenke and colleagues, with an educational vic from [employer]. MICHAEL-7 Assessment Billing MICHAEL-7 Assessment Tool: MICHAEL-7 Assessment 18683 ACT Questionnaire In the past 4 weeks, how much of the time did your asthma keep you from getting as much done at work, school or at home?: None of the time During the past 4 weeks, how often have you had shortness of breath?: Not at all During the past 4 weeks, how often did your asthma symptoms wake you up at night or earlier than usual in the morning?: Not at all During the past 4 weeks, how often have you had to use your rescue inhaler or nebulizer medication?: Not at all How would you rate your asthma control during the past 4 weeks?: Completely controlled ACT Interpretation: Negative Score: 25 Physical exam (Primary Care) Vital Signs: Last Vital Signs Temp 97.4 F 08/18/24 12:15 Pulse 88 08/18/24 12:15 Resp 12 08/18/24 12:15 BP 118/68 08/18/24 12:15 Pulse Ox 98 08/18/24 12:15 Oxygen Delivery Method Room Air 08/18/24 12:15 BMI Assessment/Plan discussion: High BMI High, discussed plan: lifestyle Tobacco/Smoking Status: Tobacco use Status Tobacco use date assessed 08/18/24 08/18/24 12:08 Patient Tobacco Use Status Never used Tobacco 08/18/24 12:08 e-Cigarette/Vaping Use Never Used 08/18/24 12:08 PHQ-9: PHQ-9 Score PHQ-9: Total score 0 08/18/24 12:26 Depression Screening Interpretation: Negative Thrive Assessment: Date of Thrive Assessment Date Thrive assessed 08/18/24 08/18/24 12:08 Currently or been in a relationship where the following occur: No concerns reported Office Procedures Flu Questionnaire Does the patient have a severe egg allergy?: No Does the patient have severe life threatening allergies?: No Does the patient have a fever or illness today?: No Has the patient ever had Guillain-Lorton Syndrome?: No Has the patient ever had any past reaction to a flu shot?: No Immunizations Fluarix Triv 5464-9425 (PF) 45 mcg (15 mcg x 3)/0.5 mL IM syringe Performing Provider: SUSAN Tanner Performing Location: [facility] Administered by: Nilsa Lu RN on 08/18/24 12:58 Dose Route Admin Location Dispensed Lot Number Expiration Date NDC Yard Driver 0.5 mL IM Left Deltoid 0.5 mL [id number] 11/20/24 [id number] [employer] VIS Given Date VIS Provided VIS Publication Date 08/18/24 Single Vaccine 20 Eligibility Eligibility Date Funding Source Not VFC Eligible 08/18/24 Private Administration Comments: Patient received two vaccines today in the left deltoid. The flu shot first and then the TDaP below and to the right. Boostrix Tdap 2.5 Lf unit-8 mcg-5 Lf/0.5 mL intramuscular syringe Performing Provider: TERESA Tanner Performing Location: [facility] Administered by: Nilsa Lu RN on 08/18/24 12:58 Dose Route Admin Location Dispensed Lot Number Expiration Date NDC Yard Driver 0.5 mL IM Left Deltoid 0.5 mL [id number] 08/12/26 22294-204-69 GLAXSanteVetITHKLINE VIS Given Date VIS Provided VIS Publication Date 08/18/24 Single Vaccine 20 Eligibility Eligibility Date Funding Source Not VFC Eligible 08/18/24 Private Administration Comments: Patient received two vaccines today in the left deltoid. The flu shot first and then the TDaP below and to the right. Coding Level of Care Code Est Pt Prev Care 18-39y(18989) Diagnoses Encounter for general adult medical examination without abnormal findings Z00.00 Blurred vision H53.8 Anxiety with depression F41.8 Difficulty concentrating R41.840 Influenza vaccination administered at current visit Z23 Need for Tdap vaccination Z23 Mild intermittent asthma without complication J45.20 Asthma severity: mild Asthma persistence: intermittent Asthma complication type: uncomplicated Gastroesophageal reflux disease without esophagitis K21.9 Esophagitis presence: without esophagitis Laboratory exam ordered as part of routine general medical examination Z00.00 Psoriasis L40.9 Additional Codes MICHAEL-7 Assessment Billing - MICHAEL-7 Assessment Tool: MICHAEL-7 Assessment 19810 ([id number]) PHQ-9 - 60023 - PHQ-9 Billing: Yes ([id number]) Asthma Control Questionnaire - ACT Interpretation: Negative ([id number]) Assessment & Plan Assessment & Plan (1) Encounter for general adult medical examination without abnormal findings: Code(s): Z00.00 - Encounter for general adult medical examination without abnormal findings (2) Blurred vision: Code(s): H53.8 - Other visual disturbances Category: Medical (3) Anxiety with depression: Code(s): F41.8 - Other specified anxiety disorders Category: Medical (4) Difficulty concentrating: Code(s): R41.840 - Attention and concentration deficit Category: Medical (5) Influenza vaccination administered at current visit: Code(s): Z23 - Encounter for immunization Category: Medical (6) Need for Tdap vaccination: Code(s): Z23 - Encounter for immunization Category: Medical (7) Asthma: Code(s): J45.909 - Unspecified asthma, uncomplicated Category: Medical Qualifiers: Asthma severity: mild Asthma persistence: intermittent Asthma complication type: uncomplicated Qualified Code(s): J45.20 - Mild intermittent asthma, uncomplicated (8) GERD (gastroesophageal reflux disease): Code(s): K21.9 - Gastro-esophageal reflux disease without esophagitis Category: Medical Qualifiers: Esophagitis presence: without esophagitis Qualified Code(s): K21.9 - Gastro-esophageal reflux disease without esophagitis (9) Laboratory exam ordered as part of routine general medical examination: Code(s): Z00.00 - Encounter for general adult medical examination without abnormal findings Category: Medical (10) Psoriasis: Code(s): L40.9 - Psoriasis, unspecified Category: Medical Plan . Orders: Orders Influenza [id number] Immunization Today Z23 - Encounter for immunization TDaP Immunization Today Z23 - Encounter for immunization Referrals Ophthalmology Referral H53.8 - Other visual disturbances Nurse Navigator Referral F41.8 - Other specified anxiety disorders, R41.840 - Attention and concentration deficit Medications: New calcipotriene 0.005% 1 appl topical BID 60 grams 6RF Fluarix Triv [id number] (PF) (flu vacc [id number] 6mos up(PF)) 0.5 mL IM ONCE 0.5 mL 0RF NS Z23 - Encounter for immunization Boostrix Tdap (diphth,pertus(acell),tetanus) 0.5 mL IM ONCE 0.5 mL 0RF NS Z23 - Encounter for immunization Refilled budesonide-formoterol 160-4.5 mcg/actuation (Symbicort) 1 inh inhalation BID 30 days 10.2 grams 2RF J45.909 - Unspecified asthma, uncomplicated Patient Instructions: Health screenings for women You should visit your health care provider from time to time, even if you are healthy. The purpose of these visits is to: Screen for medical issues Assess your risk for future medical problems Encourage a healthy lifestyle Update vaccinations and other preventive care services Help you get to know your provider in case of an illness Information Even if you feel fine, you should still see your provider for regular checkups. These visits can help you avoid problems in the future. For example, the only way to find out if you have high blood pressure is to have it checked regularly. High blood sugar and high cholesterol levels also may not have any symptoms in the early stages. A simple blood test can check for these conditions. There are specific times when you should see your provider or receive specific health screenings. The [place] Preventive Services Task Force publishes a list of recommended screenings. Below are screening guidelines for women ages 18 to 39. BLOOD PRESSURE SCREENING Your blood pressure should be checked at least once every 3 to 5 years if: Your blood pressure is in the normal range (top number less than 120 mm Hg and bottom number less than 80 mm Hg) You don't have risk factors for high blood pressure Ask your provider if you need your blood pressure checked more often if: The top number is 120 to 129 mm Hg or the bottom number is 70 to 79 mm Hg You have diabetes, heart disease, kidney problems, are overweight, or have certain other health conditions You have a first-degree relative with high blood pressure You are Black You had high blood pressure during a If the top number is 130 mm Hg or greater or the bottom number is 80 mm Hg or greater, this is considered stage 1 hypertension. Schedule an appointment with your provider to learn how you can reduce your blood pressure. Watch for blood pressure screenings in your area. Ask your provider if you can stop in to have your blood pressure checked. BREAST CANCER SCREENING Experts do not agree about the benefits of breast self-exams in finding breast cancer or saving lives. Talk to your provider about what is best for you. A screening mammogram is not recommended for most women under age 40. Your provider may discuss and recommend mammograms, MRI scans, or ultrasounds if you have an increased risk for breast cancer, such as: A mother or sister who had breast cancer at a young age (most often starting screening earlier than the age the close relative was diagnosed) You carry a high-risk genetic marker CERVICAL CANCER SCREENING Cervical cancer screening should start at age 21 years unless your provider advises otherwise. After the first test: Women ages 21 through 29 should have a Pap test every 3 years. Exoprts do not agree on whether HPV testing is recommended for this age group. Women ages 30 through 65 should be screened with either a Pap test every 3 years or the HPV test every 5 years or both tests every 5 years (called cotesting ). Women who have been treated for precancer (cervical dysplasia) should continue to have Pap tests for 20 years after treatment or until age 65, whichever is longer. If you have had your uterus and cervix removed (total hysterectomy), and you have not been diagnosed with cervical cancer or precancer (high grade cervical neoplasia), you do not need cervical cancer screening. CHOLESTEROL SCREENING Cholesterol screening should begin at: Age 45 for women with no known risk factors for coronary heart disease Age 20 for women with known risk factors for coronary heart disease Repeat cholesterol screening should take place: Every 5 years for women with normal cholesterol levels More often if changes occur in lifestyle (including weight gain and diet) More often if you have diabetes, heart disease, kidney problems, or certain other conditions DIABETES SCREENING You should be screened for diabetes starting at age 35 and then repeated every 3 years if you have no risk factors for diabetes. Screening may need to start earlier and be repeated more often if you have other risk factors for diabetes, such as: You have a first degree relative with diabetes. You are overweight or have obesity. You have high blood pressure, prediabetes, or a history of heart disease. Screening for diabetes should be done if you are planning to become and you are overweight and have other risk factors such as high blood pressure. DENTAL EXAM Go to the dentist once or twice every year for an exam and cleaning. Your dentist will evaluate if you need more frequent visits. EYE EXAM Have an eye exam every 5 to 10 years before age 40. If you have vision problems, have an eye exam every 2 years or more often if recommended by your provider. You should have an eye exam that includes an examination of your retina (back of your eye) at least every year if you have diabetes. IMMUNIZATIONS Commonly needed vaccines include: Flu shot: get one every year. COVID-19 vaccine: ask your provider what is best for you. Tetanus-diphtheria and acellular pertussis (Tdap) vaccine: have one at or after age 19 as one of your tetanus-diphtheria vaccines if you did not receive it as an adolescent. Tetanus-diphtheria: have a booster (or Tdap) every 10 years. Varicella vaccine: receive 2 doses if you never had chickenpox or the varicella vaccine. Hepatitis B vaccine: receive 2, 3, or 4 doses, depending on your exact circumstances. Measles, mumps, and rubella (MMR) vaccine: receive 1 to 2 doses if you are not already immune to MMR. Your provider can tell you if you are immune. Ask your provider about the human papillomavirus (HPV) vaccine if: You have not received the HPV vaccine in the past You have not completed the full vaccine series (you should catch up on this shot) Ask your provider if you should receive other immunizations if you have certain health problems that increase your risk for some diseases such as pneumonia. INFECTIOUS DISEASE SCREENING Women who are sexually active should be screened for chlamydia and gonorrhea up until age 25. Women 25 years and older should be screened for chlamydia and gonorrhea if at high risk. Screening for hepatitis C: All adults ages 18 to 79 should get a one-time test for hepatitis C. people should be screened at every . Screening for human immunodeficiency virus (HIV): All people ages 15 to 65 should get a one-time test for HIV. Depending on your lifestyle and medical history, you may also need to be screened for infections such as syphilis and HIV, as well as other infections. PHYSICAL EXAM All adults should visit their provider from time to time, even if they are healthy. The purpose of these visits is to: Screen for disease Assess your risk of future medical problems Encourage a healthy lifestyle Update your vaccinations and other preventive care services Maintain a relationship with a provider in case of an illness Your height, weight, and BMI should be checked at every exam. During your exam, your provider may ask you about: Depression and anxiety Diet and exercise Alcohol and tobacco use Safety issues, such as using seat belts, smoke detectors, and intimate partner violence Your medicines and risk for interactions SKIN SELF-EXAM Your provider may check your skin for signs of skin cancer, especially if you're at high risk, such as if you: Have had skin cancer before Have close relatives with skin cancer Have a weakened immune system OTHER SCREENING Talk with your provider about colon cancer screening if you have a strong family history of colon cancer or polyps, or if you have had inflammatory bowel disease or polyps yourself. Routine bone density screening of women under 40 is not recommended.
[2024-08-18 12:15] VITALS: BP 118/68; PULSE 88; RESP 12; TEMP 36.3; O2SAT 98
== END 2024-08-18 13:01 | disposition home or self-care (01) ==
LOC: HO.HMCFM 11:57
PROVIDERS: PCP Family Medicine; Visit Provider Nurse Practitioner Family
DX: Z00.00 Encounter for general adult medical examination without abnormal findings (principal); H53.8 Other visual disturbances; F41.8 Other specified anxiety disorders; R41.840 Attention and concentration deficit; Z23 Encounter for immunization; J45.20 Mild intermittent asthma, uncomplicated; K21.9 Gastro-esophageal reflux disease without esophagitis; L40.9 Psoriasis, unspecified

== ENCOUNTER → 2024-08-18 11:56 | Outpatient (BNVA) | payer OTHER, SELFPAY | PROVIDERS: PCP Family Medicine; Visit Provider Nurse Practitioner Family | DX: Z00.01 Encounter for general adult medical examination with abnormal findings (principal); L40.50 Arthropathic psoriasis, unspecified; J45.909 Unspecified asthma, uncomplicated; F98.8 Other specified behavioral and emotional disorders with onset usually occurring in childhood and adolescence; K21.9 Gastro-esophageal reflux disease without esophagitis; H53.8 Other visual disturbances; F41.8 Other specified anxiety disorders; R41.840 Attention and concentration deficit; J45.20 Mild intermittent asthma, uncomplicated; Z23 Encounter for immunization | CPT/HCPCS: 90471; 90472; 90656; 90715; 96127; 96160; 99395 ==

== ENCOUNTER 2024-11-23 11:03 | Outpatient (REF) | payer OTHER, SELFPAY ==
[2024-11-23 14:54] LABS: MANUAL DIFF FLAG NO
[2024-11-23 15:09] LABS: Hematocrit 39.7 % (37.0-47.0); Hemoglobin 13.0 g/dl (12.0-16.0); Imm Gran Abs Auto 0.01 X10*3/uL (0.00-0.03); Imm Gran Pct Auto 0.1 % (0.0-0.4); Lymphocytes Absolute Auto 1.6 X10*3/uL (1.2-4.9); Mean Corpuscular HGB Conc 32.7 g/dl (31.0-35.0); Mean Corpuscular Hemoglobin 28.0 pg (27.0-33.0); Mean Corpuscular Volume 85.4 fL (80.0-98.0); NRBC Abs Auto 0.000 X10*3/uL (0.0-0.012); NRBC Pct Auto 0.0 /100WBC (0.0-0.2); Platelet Count 248 X10*3/uL (160-400); Red Blood Count 4.65 X10*6/uL (4.20-5.50); White Blood Count 6.9 X10*3/uL (4.8-10.8)
[2024-11-23 15:25] LABS: Alanine Aminotransferase 18 U/L (0-31); Aspartate Amino Transferase 21 U/L (5-31); Estimated Glomerular Filt Rate > 60
[2024-11-29 14:44] LABS: HLA B27 Negative (Negative)
== END 2024-11-23 11:04 | disposition home or self-care (01) ==
LOC: HO.HKASLDS 11:03
PROVIDERS: PCP Family Medicine; Visit Provider Internal Medicine Rheumatology
DX: L40.50 Arthropathic psoriasis, unspecified (principal); M35.7 Hypermobility syndrome; M79.671 Pain in right foot; M79.672 Pain in left foot; M21.611 Bunion of right foot; M21.622 Bunionette of left foot; M21.621 Bunionette of right foot
CPT/HCPCS: 36415; 82565; 84450; 84460; 85025; 85652; 86140; 86812; 99202

== ENCOUNTER 2024-11-23 11:03 | Outpatient (AMB) | payer OTHER, SELFPAY ==
--- NOTE | 2024-11-23 09:08 | A.OFFVIS_ITS ---
Vital Signs 11/23/24 11:11 Height 5 ft 7.95 in Weight 270 lb 8.115 oz BMI 41.2 BP 100/80 Blood Pressure Location Lt brachial Position Sitting Pulse 90 Pulse Source Pulse Oximeter Pulse Oximetry (%) 98 Oxygen Delivery Method Room Air Intake Visit Reasons: Arthropathic psoriasis Intake Note: Patient presents for Arthropathic psoriasis. 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 Diagnosed with PsO (feet, knees and ears) childhood in elementary school treated with topicals. She saw Dermatology in 2020 who diagnosed with PsA. She was having trouble walking due to pain in feet and ankles. Improved pain with walking. MS 30 minutes at the time. She failed methotrexate. She was on Humira, which resolved PsO and she had no joint pain. She was on Humira for 1.5 years with last visit early 2021. January 2024 she had swelling of ankles and feet resolved after a few days. Swelling in ankles and feet returned in the Spring 2024. Jun 2024 she fractured left distal fibula and has continued to have swelling in foot and ankle. She has constant pain and stiffness in ankles and MTPs. Increase activity during the day (+4h of being on her feet) causes increase pain and limping in the next morning when she wakes up. Orthopedic shoes help. Pain did not increase in intensity but she continues to have constant pain with swelling episodes. She had benefit ibuprofen 400mg daily for a few weeks fall 2023. Aftraid of s/e and d/c. Age 24 she had a sedentary job sitting hunched without good back support. She could not move for 3 days. Every few years if she lifted something she may have pain. Pain to touch in the same region. She has stiffness in back and has to change position/adjust. Over the years she went to chiropractor and PT. Activity can make it painful. When he was doing yoga for 5-6 years she had control of back pain. No nocturnal pain. No hx of iritis or dactylitis. No family hx of PsO, PsA, IBD rheumatological family hx. Medical history and med list reviewed. She had a right ankle fracture suspected by orthopedic surgeon of [place] in 2019 who she saw due to chronic ankle swelling. She fractured her left distal tibia June 2024 managed by being in a boot without surgical intervention. 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[employer] [facility] Medical History (Updated 11/23/24 @ 12:19 by Tolu Bernard MD) Ankle fracture, left Abnormal endoscopy of upper gastrointestinal tract Adult celiac disease Psoriatic arthritis Psoriasis Asthma Family History (Updated 06/09/24 @ 10:25 by NICK Bob) Mother Substance abuse FH: mental illness Social History (Updated 06/09/24 @ 10:25 by NICK Bob) Housing: House Patient Tobacco Use Status: Never used Tobacco e-Cigarette/Vaping Use: Never Used Second Hand Smoke Exposure: No Substance Use Type: Marijuana service: No Current occupational status: employed 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 Good respiratory effort Skin: No lesions seen MSK: No tenderness of upper extremities. Normal range of motion of upper extremities and lower extremities. She has tenderness of lower cervical spinous process. Normal range of motion of cervical spine. She has tenderness of mid to lower lumbar spinous process, paraspinal muscles and laterally. Bilateral SI joint tenderness. Negative TAWANNA. Left trochanteric bursa tenderness found. She has bilateral knee valgus deformity. She has soft tissue swelling left ankle greater than right ankle. No MTP tenderness. Bilateral hallux valgus and tailor's bunions present. Beighton score ?Passive dorsiflexion and hyperextension of the fifth MCP joint beyond 90? 1 1 2. Passive apposition of the thumb to the flexor aspect of t he forearm 1 1 3. Passive hyperextension of the elbow beyond 10? 0 0 4. Passive hyperextension of the knee beyond 10? 1 1 5. Active forward flexion of the trunk w ith the knees fully extended so that the palms of the hands rest flat on the floor 1 1 TOTAL 8 Assessment & Plan Assessment & Plan (1) Psoriatic arthritis: Comment: Mainly involving ankle and feet with joint pain and stiffness. Since January she has had recurrent episodes of ankle and foot swelling, which may be related to activity from uncontrolled psoriatic arthritis. In the past she was on remission from psoriatic arthritis and psoriasis on Humira when she was on it for a year and a half up until 2021. On exam she has enthesitis involving left trochanteric bursa with soft tissue swelling of both ankles (left ankle fracture June 2024). Bilateral MTP pain is from hallux valgus deformity, which is degenerative and not inflammatory. She has a history of chronic lower back pain exacerbated with rest/sedentary job. I am further working up for axial inflammatory arthritis with imaging. Code(s): L40.50 - Arthropathic psoriasis, unspecified Category: Medical Plan: X-rays ordered for baseline and to evaluate for radiographic evidence of axial inflammatory arthritis Baseline Labs ordered including inflammatory markers and HLA B27 Continue to wear good foot support Return to clinic in 1-2 months next available to review results (2) Benign hypermobility syndrome: Comment: Discussed diagnosis. She does not have any features suggestive of more serious forms of Hermilo-Danlos syndrome. Currently there are no genetic testing available for benign hypermobility syndrome-EDS. We discussed conservative management with physical rehabilitation. Code(s): M35.7 - Hypermobility syndrome Category: Medical Plan: PT ordered for joint strengthening of lower extremities She is experiencing dizziness in the morning when she wakes up. I encouraged her to hydrate well. If she continues to experience these symptoms, I recommend that she follow up with PCP for further evaluation. POTS is associated with benign hypermobility syndrome. 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 XR lumbar spine 2-3V Today L40.50 - Arthropathic psoriasis, unspecified, 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 XR sacroiliac joint min 3V Today L40.50 - Arthropathic psoriasis, unspecified, 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 XR hip LT min 2V Today L40.50 - Arthropathic psoriasis, unspecified, 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 HLA B27 Today L40.50 - Arthropathic psoriasis, unspecified Erythrocyte Sedimentation Rate Today L40.50 - Arthropathic psoriasis, unspecified, Z79.899 - Other long-term (current) drug therapy C Reactive Protein Today L40.50 - Arthropathic psoriasis, unspecified, Z79.899 - Other long-term (current) drug therapy Alanine Aminotransferase Today L40.50 - Arthropathic psoriasis, unspecified Aspartate Amino Transferase Today L40.50 - Arthropathic psoriasis, unspecified Creatinine Today L40.50 - Arthropathic psoriasis, unspecified Complete Blood Count Auto Diff Today L40.50 - Arthropathic psoriasis, unspecified PT Evaluation and Treatment Today L40.50 - Arthropathic psoriasis, unspecified, M35.7 - Hypermobility syndrome, M79.671 - Pain in right foot, M79.672 - Pain in left foot XR cervical spine 3V Today L40.50 - Arthropathic psoriasis, unspecified, M35.7 - Hypermobility syndrome, M54.9 - Dorsalgia, unspecified Coding Level of Care Code New Pt Level 4 (30322) Diagnoses Psoriatic arthritis L40.50 Benign hypermobility syndrome M35.7 Foot pain, bilateral M79.671; M79.672 Bilateral bunions M21.611; M21.612 Tailor's bunionette, bilateral M21.621; M21.622 Time Spent (min) 45
[2024-11-23 11:11] VITALS: BP 100/80; PULSE 90; O2SAT 98; BMI 41.2
--- OUTSIDE RECORDS SUMMARY | 2024-11-23 11:54 | XMS_ITS | Patient Health Record ---
Author Organization [facility] Address [address] [place] [id number] Care Team Providers Care Director Of Cloud Services Name Role Phone MARIA E MARTÍNEZ Unavailable [phone] Allergies Allergen (clinical drug ingredient) Drug/Non Drug Allergy documented on EMR Reaction Allergy Type Onset Date Status Cat dander Cat Dander Unknown Allergy Active Dust Mites Unknown Allergy Active Results Component Value Reference Range Notes HCV Antibody-[id number] Reviewed date:08/11/2024 11:04:34 AM Interpretation:Negative Performing Lab:[facility], [address], [address], [employer], Phone - [phone], Director - [facility] Notes/Report: Clinical Information:SRC:urine Hep C Virus Ab Non Reactive Non Reactive HCV antibody alone does not differentiate between previously resolved infection and active infection. Equivocal and Reactive HCV antibody results should be followed up with an HCV RNA test to support the diagnosis of active HCV infection. Ct/GC ARIEL, Pharyngeal-[id number] Reviewed date:08/11/2024 11:49:39 AM Interpretation:Negative Performing Lab:[facility], [address], [address], [employer], Phone - [phone], Director - [facility] Notes/Report: Clinical Information:SRC:urine C. trachomatis, ARIEL, Pharyn Negative Negative N. gonorrhoeae, ARIEL, Pharyn Negative Negative Ct, Ng, Trich vag by ARIEL-[id number] Reviewed date:08/11/2024 11:49:48 AM Interpretation:Negative Performing Lab:[facility], [address], [address], [employer], Phone - [phone], Director - [facility] Notes/Report: Clinical Information:SRC:urine Chlamydia by ARIEL Negative Negative Gonococcus by ARIEL Negative Negative Trich vag by ARIEL Negative Negative HIV Ab/p24 Ag with Reflex-[id number] Reviewed date:08/11/2024 11:04:50 AM Interpretation:Negative Performing Lab:[facility] [place], [address], [address], [employer], Phone - [phone], Director - [facility] Notes/Report: Clinical Information:SRC:urine HIV Ab/p24 Ag Screen Non Reactive Non Reactive HIV-1/HIV-2 antibodies and HIV-1 p24 antigen were NOT detected. There is no laboratory evidence of HIV infection. HIV Negative T pallidum Screening Carson -[id number] Reviewed date:08/11/2024 11:04:57 AM Interpretation:Negative Performing Lab:[facility] [place], [address], [address], [employer], Phone - [phone], Director - [facility] Notes/Report: Clinical Information:SRC:urine T pallidum Antibodies Non Reactive Non Reactive Hepatitis B Surf Ab Quant-[id number] Reviewed date:08/10/2024 12:13:49 PM Interpretation:Not Immune Performing Lab:[facility], [address], [address], [employer], Phone - [phone], Director - [facility] Notes/Report: Clinical Information:SRC:urine Hepatitis B Surf Ab Quant 8.4 Immunity>10 mIU /mL Status of Immunity Anti-HBs Level Inconsistent with Immunity 0.0 - 10.0 Consistent with Immunity >10.0 HBsAg Screen-[id number] Reviewed date:08/11/2024 11:04:41 AM Interpretation:Negative Performing Lab:[facility], [address], [address], [employer], Phone - [phone], Director - [facility] Notes/Report: Clinical Information:SRC:urine HBsAg Screen Negative Negative Reason For Referral No Information Medications Medication SIG (Take, Route, Fr equency, Duration) Notes Start Date End Date Status Prazosin HCl Active Omeprazole Active Depo-Provera Not-Calin ing Albuterol As needed Active busPIRone HCl Active Venlafaxine HCl Acti ve traZODone HCl Active Social History Sex Assigned At : Social History Observation Description Sex Assigned At Female Section Notes: Aptima/ bw Aptima done 11/27/22 - Decline s bw Declines Aptima/Bw Aptima/ bw Encounters Encounter Location Date Provider Diagnosis [address] [phone] 08/09/2024 MARIA E MARTÍNEZ Encounter for scre ening for infections with a predominantly sexual mode of transmission Z11.3 ; Counseling, unspecified Z71.9 ; Other problems related to lifestyle Z72.89 ; HIV Screening Z11.4 and Screening for other viral diseases Z11.59 Assessments Encounter Date Diagnosis (ICD Code) Assessment Notes Treatment Notes Treatment Clinical Notes Section Notes 08/09/2024 Encounter for screening for infections with a predominantly sexual mode of transmission (ICD-10 - Z11.3) Discussed STI risks, screenings that are available through [facility] and safe sex. Clt aware of lab processing times and how to view results on portal and how positive results will be communicated For lab collection today Need 2 out of 3 Sections from A-C Section A) Problems (only need one from below) One acute or uncomplicated illness/injury Section B) Data (at least one of the following categories in this section) Category 1: (Choose 2 of the following): Order unique tests Section C) Risk Document low risk of morbidity/mortal ity 08/09/2024 Counseling, unspecified (ICD-10 - Z71.9) Need 2 out of 3 Sections from A-C Section A) Problems (only need one from below) One acute or uncomplicated illness/injury Section B) Data (at least one of the following categories in this section) Category 1: (Choose 2 of the following): Order unique tests Section C) Risk Document low risk of morbidity/mortal ity 08/09/2024 Other problems related to lifestyle (ICD-10 - Z72.89) Need 2 out of 3 Sections from A-C Section A) Problems (only need one from below) One acute or uncomplicated illness/injury Section B) Data (at least one of the following categories in this section) Category 1: (Choose 2 of the following): Order unique tests Section C) Risk Document low risk of morbidity/mortal ity 08/09/2024 HIV Screening (ICD-10 - Z11.4) Need 2 out of 3 Sections from A-C Section A) Problems (only need one from below) One acute or uncomplicated illness/injury Section B) Data (at least one of the following categories in this section) Category 1: (Choose 2 of the following): Order unique tests Section C) Risk Document low risk of morbidity/mortal ity 08/09/2024 Screening for other viral diseases (ICD-10 - Z11.59) Need 2 out of 3 Sections from A-C Section A) Problems (only need one from below) One acute or uncomplicated illness/injury Section B) Data (at least one of the following categories in this section) Category 1: (Choose 2 of the following): Order unique tests Section C) Risk Document low risk of morbidity/mortal ity Plan Of Treatment No Information Insurance Providers Payer Name Payer Address Payer Phone Subscriber Number Group Number Insured Name Patient Relationship to Insured Coverage Start Date Coverage End Date [facility] [employer] [address] [address] [place], [place] [id number] Andreina Munguia Self - patient is the insured Medications Administered Medication Instructions Date of Administration Dosage Notes Depo 150mg 02/12/2023 Depo 150mg 05/10/2023 Depo 150mg 08/06/2023 Medical (General) History Medical History History ICD Code Weight concerns PTSD Psoriatic arthritis, joint pain ADHD Functional autism Surgical History Surgery Date(Month/Year) 2024 broken leg
== END 2024-11-23 12:32 | disposition home or self-care (01) ==
PROVIDERS: PCP Family Medicine; Visit Provider Internal Medicine Rheumatology
DX: L40.50 Arthropathic psoriasis, unspecified (principal); M35.7 Hypermobility syndrome; M79.671 Pain in right foot; M79.672 Pain in left foot; M21.611 Bunion of right foot; M21.612 Bunion of left foot; M21.621 Bunionette of right foot; M21.622 Bunionette of left foot
CPT/HCPCS: 99204

== ENCOUNTER 2024-12-18 15:40 | Outpatient (REF) | payer OTHER, SELFPAY ==
--- OUTSIDE RECORDS SUMMARY | 2024-01-16 05:00 | XMS_ITS ---
Author Organization [facility] Address [address] [place] [address] Care Team Providers Care Seismic Prospecting Observer Helper Name Role Phone Migration, Provider Unavailable Unavailable REASON FOR VISIT EMR-Jordan Encounters Encounter Location Date Provider Diagnosis [facility] [address] [place] [address] 01/16/2024 Provider Migration Plan Of Treatment No Information Progress Notes * MAYRA SPRINGOB: 7 (39 yo F)Acc No.[id number]:01/16/2024 Patient: Jesus ART MCFARLAND :1985 A ge:38 Y S ex:Female Address:[address], [place], [address] Subjective: * Chief Complaints: * E MR-Jordan * * Date:
--- OUTSIDE RECORDS SUMMARY | 2024-12-14 09:09 | XMS_ITS | Encounter Summary ---
Author Organization [facility] Address [address] [facility] [address] [place] [phone] Phone Care Team Providers Care Asbestos Shingle Inspector Name Role Phone Saurav Mendoza MD Primary Care Provider Reason for Visit * Auth/Cert (Routine) Specialty Diagnoses / Procedures Referred By Contrenetta t Referred To Contact Diagnoses Request for sterilization Request for sterilization [Z30.2] Procedures VT LAP,RMV ADNEXAL STRUCTURE LAPAROSCOPIC SALPINGECTOMY BILATERAL Referral ID Status Reason Start Date Expiration Date Visits Re quested Visits Authorized [id number] 1 1 Encounter Details Date Type Department Care Team (Latest Contact Info) Description 12/14/2024 9:09 AM EDT - 12/14/2024 3:30 PM EDT Hospital Encounter OR Admitting Dept - Virtual Department [address] [place] [id number] Paige Almaguer MD [address] [address] [email or web address] Discharge Disposition: Home or Self Care Social History Tobacco Use Types Packs/Day Years Used Date Smoking Tobacco: Never Smokeless Tobacco: Never Alcohol Use Standard Drinks/Week Comments Yes 3 (1 standard drink = 0.6 oz pur e alcohol) Education Answer Date Recorded Are you interested in more education? Not on garima e 07/10/2023 Are you concerned about learning? Not on file 07/10/2023 No 07/10/2023 No 07/10/2023 Digital Access Answer Date Recorded No 07/10/2023 No 07/10/2023 Reliable internet access at home? Not on file 07/10/2023 Device with a working camera? Not on file Comments No Sex and Gender Information Value Date Recorded Sex Assigned at Not on file Legal Sex Female 9:03 AM EST Gender Identity Not on file Sexual Orientation Not on file documented as of this encounter Last Filed Vital Signs Vital Sign Reading Time Taken Comments Blood Pressure 135/90 12/14/2024 3:20 PM EDT Pulse 71 12/14/2024 2:00 PM EDT Temperature 36.1 C (97 F) 12/14/2024 3:20 PM EDT Respiratory Rate 16 12/14/2024 1:45 PM EDT Oxygen Saturation 100% 12/14/2024 3:20 PM EDT Inhaled Oxygen Concentration - - Weight 113.4 kg (250 lb) 12/14/2024 9:20 AM EDT Height 170.2 cm (5' 7 ) 12/14/2024 9:20 AM EDT Body Mass Index 39.16 12/14/2024 9:20 AM EDT documented in this encounter Discharge Instructions * Discharge Instructions* Fatmata Styles RN - 12/14/2024 12:58 PM EDT AFTER ANESTHESIA It is best to have someone stay home with you for your own safety. Do not drink alcoholic beveragesfor 24 hours after surgery, or while taking opioid/narcotic pain medication. You may be dizzy and unsteady on your feet. Be careful on stairs. Do not smoke. Do not do anything that requires a clear head or steady hands, such as driving, for 24 hours. After anesthesia you may have some muscle soreness for 24-48 hours. If it lasts longer that this, call your doctor. If a breathing tube was used during surgery, you may have a slight sore throat. Youcan gargle with cold water or use sore throat lozenges. Nausea and Vomiting After Surgery After you've had surgery, you may feel sick to your stomach (nauseated) or you may vomit. When you are nauseated, you may feel weak, sweaty and/or notice a lot of saliva in your mouth. Nausea often leads to vomiting. Most of the time you do not need to worry about nausea and vomiting. Anesthesia, pain and narcotic/opioid pain medicine can make you feel sick to your stomach. Whatever the cause, there are some things you can do at home to prevent nausea and feel better. If you are feeling sick to your stomach and/or vomiting, you can care for yourself at home by: To prevent dehydration, drink fluids. Choose water and other clear liquids until you feel less nauseated. Do not drink alcoholic beverages. If you have kidney, heart, or liver disease and have to limit fluids, talk with your doctor before you increase the amount of fluids you drink. When you are able to eat, try clear soups, mild foods, and liquids until all symptoms are improve. Good choices include dry toast, crackers, cooked cereal, and gelatin dessert, such as Jell-O. Do not smoke. Smoking and being around smoke can make nausea worse. Rest. Be safe with medications. Read and follow all instructions on the label. Ask your doctor if you cantake an over-the counter medicine for pain (less likely to cause nausea and vomiting.). Take your pain medicine with food. Call your doctor or seek immediate medical care if symptoms are severe and/or persistent. Edited 10/2022 RT * Attachments The following attachments cannot be sent through Care Everywhere. * Laparoscopy: Post op (Ivorian) documented in this encounter Medications at Time of Discharge acetaminophen (TYLENOL) 325 mg tablet Take 2 tablets (650 mg total) by mouth every 4 (four) hours as needed for pain (specific location in comments). 12/14/2024 albuterol 90 mcg/actuation inhaler Inhale 2 puffs into the lungs every 6 (six) hours as needed for wheezing. calcipotriene (CALCITRENE) 0.005 % ointment Apply topically 2 (two) times a day. 120 g 01/28/2024 ibuprofen (ADVIL,MOTRIN) 200 MG tablet Take 3 tablets (600 mg total) by mouth every 6 (six) hours as needed for pain (specific location in comments). 12/14/2024 methylphenidate (CONCERTA) 36 MG ER tablet Take 72 mg by mouth every morning. oxyCODONE 5 MG immediate release tablet Take 1 tablet (5 mg total) by mouth every 4 (four) hours as needed for pain (specific location in comments). Partial fill ok 6 tablet 12/14/2024 traZODone (DESYREL) 100 MG tablet Take 100 mg by mouth nightly at bedtime. venlafaxine (EFFEXOR-XR) 75 MG 24 hr capsule 150 mg. 06/18/2023 documented as of this encounter H&P Notes * Paige Almaguer MD - 12/14/2024 11:23 AM EDT I have seen the patient and reviewed her history/meds/allergies. There are no changes, plan to proceed with surgery as scheduled. Source Note - Paige Almaguer MD - 11/29/2024 2:30 PM EDT PreOp Visit Encounter Date: 11/29/2024 Pre-operative Diagnosis: request for permanent sterilization Planned Procedure: laparoscopic bilateral salpingectomy History of Present Illness: Art Munguia is a 39 y.o. female, presents for pre-op visit. She is feeling well, no acute concerns. [facility] form signed 08/03/24. Review of Systems: As in HPI. All other systems reviewed and negative. Past Histories: Past Medical History: Diagnosis Date Ankle fracture 06/24/2024 L fibula Arthritis Asthma Hypermobile joints Psoriasis PTSD (post-traumatic stress disorder) No past surgical history on file. History reviewed. No pertinent family history. Social History Socioeconomic History Marital status: /Civil Union Spouse name: Not on file Number of children: Not on file Years of education: Not on file Highest education level: Not on file Occupational History Not on file Tobacco Use Smoking status: Never Smokeless tobacco: Never Vaping Use Vaping status: never used Substance and Sexual Activity Alcohol use: Yes Alcohol/week: 3.0 standard drinks of alcohol Types: 3 Standard drinks or equivalent per week Drug use: Never Sexual activity: Not Currently Other Topics Concern Not on file Social History Narrative Not on file OB History Para Term AB Living 0 0 0 0 0 0 SAB IAB Ectopic Multiple Live Births 0 0 0 0 0 Prior to Admission medications Medication Sig Start Date End Date Taking? Authorizing Provider albuterol 90 mcg/actuation inhaler Inhale 2 puffs into the lungs every 6 (six) hours as needed for wheezing. Yes Reza Coughlin MD calcipotriene (CALCITRENE) 0.005 % ointment Apply topically 2 (two) times a day. 01/28/24 Yes Meryl So CNP famotidine (PEPCID) 20 MG tablet take 1 tablet by mouth everyday at bedtime 06/09/24 Yes Reza Coughlin MD methylphenidate (CONCERTA) 36 MG ER tablet Take 72 mg by mouth every morning. Yes Reza Coughlin MD SYMBICORT 160-4.5 mcg/actuation inhaler INHALE 1 PUFF 2 TIMES A DAY FOR 30 DAYS 06/09/24 Yes Reza Coughlin MD traZODone (DESYREL) 100 MG tablet TAKE 2 TABLETS BY MOUTH EVERY EVERY NIGHT AT BEDTIME Patient taking differently: 100 mg daily 05/27/23 Yes Reza Coughlin MD venlafaxine (EFFEXOR-XR) 75 MG 24 hr capsule 150 mg. 06/18/23 Yes Reza Coughlin MD omeprazole (PRILOSEC) 20 MG capsule Take 1 capsule by mouth every morning. Patient not taking: Reported on 11/29/2024 06/09/24 Reza Coughlin MD traZODone (DESYREL) 50 MG tablet Take 25 mg by mouth nightly at bedtime. 05/27/23 Reza Coughlin MD Allergies Allergen Reactions Cat Dander Unknown House Dust Mite Unknown Objective: Vitals: 11/29/24 1433 BP: 110/76 Weight: 122.5 kg (270 lb) There is no height or weight on file to calculate BMI. GEN: alert and oriented x3, cooperative. Well-appearing on today's exam Heart: regular rate and rythym LUNG: clear to auscultation bilaterally Assessment/Plan: 39 y.o. female here for preop visit. Consent reviewed and signed for intended surgery. Procedure described. Risks including bleeding, infection and damage to surrounding structures were discussed. Reviewed NPO after midnight, discussed medications for day of surgery, loose fitting clothes, someone to bring her home after discharge, and post procedure expectations for recovery. Problem List Items Addressed This Visit Other Request for sterilization Paige Almaguer MD documented in this encounter Procedure Notes * Paige Almaguer MD - 12/14/2024 10:48 AM EDT Full Operative Note Patient Name: Art Munguia Date of Surgery: 12/14/2024 Pre-Op Diagnosis Codes: * Request for sterilization [Z30.2] Post-Op Diagnosis Codes: * Request for sterilization [Z30.2] Procedure(s): LAPAROSCOPIC SALPINGECTOMY BILATERAL Surgeons and Role: * Paige Almaguer MD - Primary * Simona Trent CNM - Assisting Supervisor Engines Road: Lucia Flores MD, KIKA Anesthesia Type: General ASA Code: III Procedure Findings: nl ext genitalia and cervix, retroverted uterus, nl fallopian tubes and ovaries, nl liver edge UOP: 300 cc Estimated Blood Loss: 5 cc Procedure: The patient was taking to the operating room where general anesthesia was administered. The patient was placed in the dorsal lithotomy position. Compression boots were placed on the patient's lower extremities. The abdomen and vagina were prepped in the usual sterile fashion. A time out was performed. A Presley catheter was placed in the patient's bladder. A speculum was placed in the patient's vagina and a Hulka tenaculum was then passed through the cervix and secured to the anterior lip of the cervix. The speculum was removed from the patient's vagina. Attention was turned to the patient's abdomen. The inferior aspect of the umbilicus was then infiltrated with 2cc 0.25% bupivicaine and a small infra- umbilcal incision was made with the scalpel. The Verres needle was then inserted through this incision into the peritoneal cavity. The peritoneal cavity was insufflated with approximately three liters of carbon dioxide. The 5 mm trochar was placed through this incision into the peritoneal cavity using the laparoscope for visualization. Two additional 5mm ports were placed in the patient's right and left lower quadrants using direct visualization. The pelvis was inspected with the above findings noted. The patient's right fallopian tube was elevated away from its attachment to the ovary. Using the Thunderbeat, the tube was amputed from the fimbriated end to the uterine cornua along the mesosalpinx.The tube was then removed through the left lower quadrant port. The same procedure was repeated on the left side. The abdomen was then desufflated of carbon dioxide and all trochars were removed. The skin incisions were then reapproximated with 4-0 monocryl in a subcuticular fashion. Steri-strips and bandages were placed across the incisions. The Hulka tenacululm was removed from the patient's cervix. The Presley catheter was removed from the patient's bladder. All sponge, instrument and needle counts were correct times two. The patient tolerated the procedure well and was transferred to the recovery room in stable condition. Specimen: Specimens ID Source Type Tests Collected By Auth By Collected At FX? 1 Fallopian Tube, Right Gynecologic Tissue TISSUE EXAM Paige Almaguer MD [[id number]] Paige Almaguer MD [[id number]] 12/14/24 1225 Method: Tubal Ligation Clinical Indication: For Sterilization ID Source Type Tests Collected By Auth By Collected At FX? 2 Fallopian Tube, Left Gynecologic Tissue TISSUE EXAM Paige Almaguer MD [[id number]] Paige Almaguer MD [[id number]] 12/14/24 1225 Method: Tubal Ligation Clinical Indication: For Sterilization Additional Information Comments: Is there concern for infection at the time of the procedure?: No Disposition: PACU - hemodynamically stable. Condition: stable I was present for the entire procedure. documented in this encounter Plan of Treatment Not on file documented as of this encounter Procedures Procedure Name Priority Date/Time Associated Diagnosis Comments VT LAP,RMV ADNEXAL STRUCTURE 12/14/2024 11:44 AM EDT Request for sterilization ANATOMIC PATHOLOGY Routine 12/14/2024 12 :00 AM EDT documented in this encounter Results * Anatomic Pathology (12/14/2024 12:00 AM EDT) 12/14/2024 12/14/2024 2:3 7 PM EDT Narrative SEE NARRATIVE - 12/15/2024 12:19 PM EDT [address] [id number] Agricultural Equipment Mechanic: Kurtis Joyce MD Surgical Pathology Report FINAL PATHOLOGIC DIAGNOSIS: A. RIGHT FALLOPIAN TUBE, SALPINGECTOMY: No pathologic abnormality. B. LEFT FALLOPIAN TUBE, SALPINGECTOMY: No pathologic abnormality. Electronically Signed Out By Ora Trinidad MD By his/her signature above, the pathologist listed as making the Final Diagnosis certifies that he/she has personally reviewed this case and confirmed or corrected the diagnosis. CLINICAL HISTORY Request for sterilization [Z30.2] SPECIMENS SUBMITTED: A: RIGHT FALLOPIAN TUBE, SALPINGECTOMY B: LEFT FALLOPIAN TUBE, SALPINGECTOMY GROSS DESCRIPTION A. RIGHT FALLOPIAN TUBE, SALPINGECTOMY: Received in formalin is a 5.6 cm in length fimbriated portion of fallopian tube which ranges in diameter from 0.4-0.7 cm. The serosa is smooth, pink-galindo with a few scattered paratubal cysts measuring up to 0.2 cm in greatest dimension which exude a translucent watery fluid upon sectioning. The distal aspect is bisected longitudinally to reveal a glistening eagle-pink mucosa. Further sectioning of the fallopian tube reveals a pinpoint stellate lumen with a glistening eagle mucosa. A mass is not identified grossly. Heel Scourer sections to include the distal aspect bisected are submitted in a single cassette labeled A1. B. LEFT FALLOPIAN TUBE, SALPINGECTOMY: Received in formalin is a 6.7 cm in length fimbriated portion of fallopian tube which ranges in diameter from 0.4-0.7 cm. The serosa is smooth, pink-red. The distal aspect is bisected longitudinally to reveal a glistening eagle-pink mucosa. Further sectioning of the fallopian tube reveals a pinpoint stellate lumen with a glistening eagle mucosa. A mass is not identified grossly. Heel Scourer sections to include the distal aspect bisected are submitted in a single cassette labeled B1. Grossed by: CHRISTINA Ford, [facility] [id number] 12/14/2024 Grossing Staff: [id number] Patient Name: ART MUNGUIA : 1985 (Age: 39) Sex: F [facility] Date of Operation: 12/14/2024 Date of Reported: 12/15/2024 12:19 Results To: Paige Mendoza MD us Paige Almaguer MD PATHOLOGY ORDERABLES Final Re sult SEE NARRATIVE documented in this encounter Visit Diagnoses Not on filedocumented in this encounter Administered Medications Inactive Administered Medications - up to 3 most recent administrations Medication Order MAR Action Action Date Dose Rate Site acetaminophen (TYLENOL) tablet 650 mg 650 mg, Oral, Once as needed, mild pain or 1-3 (on a general 0-10 scale), Starting on Rach 12/14/24 at 1258, For 1 dose, Recovery Room (only) Given 12/14/2024 1:51 PM EDT 650 mg fentaNYL (PF) (SUBLIMAZE) injection 25-50 mcg 25-50 mcg, Intravenous, Every 5 min PRN, severe pain or 7-10 (on a general 0-10 scale), May give as 1st or 2nd line, Starting on Rach 12/14/24 at 1258, For 4 doses, Recovery Room (only), Up to a max total dose of 150 mcg. Given 12/14/2024 1:30 PM EDT 50 mcg oxyCODONE tablet 5 mg 5 mg, Oral, Once, On Rach 12/14/24 at 1445, For 1 dose Given 12/14/2024 1:58 PM EDT 5 mg sodium chloride (NS) 0.9 % syringe flush 3 mL 3 mL, Intravenous, As needed, line care, Starting on Rach 12/14/24 at 0932, Pre-op (day of), Per Institutional IV Line Care Policy. documented in this encounter Active and Recently Administered Medications Times are shown in EDT. Scheduled Medication Order 12/12/2024 12/13/2024 12/14/2024 lactated ringers IV Bolus 250 mL 250 mL, Intravenous, Administer over 30 Minutes, Once, On Rach 12/14/24 at 1345, For 1 dose, Recovery Room (only) 1345 (Due) oxyCODONE tablet 5 mg (COMPLETED) 5 mg, Oral, Once, On Rach 12/14/24 at 1445, For 1 dose 1358 (Given - Provid er: Fatmata Styles RN) PRN Medication Order 12/12/2024 12/13/2024 12/14/2024 acetaminophen (TYLENOL) tablet 650 mg (COMPLETED)(Linked Group 1) 650 mg, Oral, Once as needed, mild pain or 1-3 (on a general 0-10 scale), Starting on Rach 12/14/24 at 1258, For 1 dose, Recovery Room (only) 1351 (Given - Provid er: Fatmata Styles RN) BUPivacaine (PF) (MARCAINE) 0.25% injection (CANCELED) As needed, Starting on Rach 12/14/24 at 1215, Intra-op/procedure 1215 (Given - Provid er: Paige Almaguer MD) fentaNYL (PF) (SUBLIMAZE) injection 25-50 mcg 25-50 mcg, Intravenous, Every 5 min PRN, severe pain or 7-10 (on a general 0-10 scale), May give as 1st or 2nd line, Starting on Rach 12/14/24 at 1258, For 4 doses, Recovery Room (only), Up to a max total dose of 150 mcg. 1330 (Given - Provid er: Fatmata Styles RN) haloperidol lactate (HALDOL) injection 1 mg 1 mg, Intravenous, Once as needed, other (free text field), 1st or 2nd line antiemetic, Starting on Rach 12/14/24 at 1258, For 1 dose, Recovery Room (only) ondansetron (PF) (ZOFRAN) injection 2-4 mg 2-4 mg, Intravenous, Once as needed, other (free text field), 1st or 2nd line antiemetic, Starting on Rach 12/14/24 at 1258, For 1 dose, Recovery Room (only) sodium chloride (NS) 0.9 % syringe flush 3 mL 3 mL, Intravenous, As needed, line care, Starting on Rach 12/14/24 at 0932, Pre-op (day of), Per Institutional IV Line Care Policy. Linked Groups Order Group 1: acetaminophen (TYLENOL) tablet 650 mg (COMPLETED)Jump to med 650 mg, Oral, Once as needed, mild pain or 1-3 (on a general 0-10 scale), Starting on Rach 12/14/24 at 1258, For 1 dose, Recovery Room (only) Or acetaminophen (TYLENOL) 160 mg/5 mL (5 mL) oral suspension 650 mg (COMPLETED) 650 mg, Oral, Once as needed, mild pain or 1-3 (on a general 0-10 scale), Starting on Rach 12/14/24 at 1258, For 1 dose, Recovery Room (only), If unable to tolerate tablet. Shake Well Or acetaminophen (TYLENOL) suppository 650 mg (COMPLETED) 650 mg, Rectal, Once as needed, other (free text field), multi-modal analgesia, Starting on Rach 12/14/24 at 1258, For 1 dose, Recovery Room (only), If unable to tolerate PO. documented in this encounter Care Teams Asbestos Shingle Inspector Relationship Specialty Start Date End Date Saurav Mendoza MD [address] [place] [address] PCP - General Family Medicine 09/14/24 documented as of this encounter Additional Source Comments The information contained in this document represents components of the legal health record. It is not the complete legal health record.[facility]
--- NOTE | ~2024-12-18 | XR_ITS ---
Exam: Three-view bilateral feet. TECHNIQUE: AP, lateral, oblique views lower extremity x-rays INDICATION: Juvenile psoriatic arthropathy Prior: None FINDINGS: Right foot: There are no erosions. Small marginal osteophyte are present involving the bilateral first metatarsophalangeal joint. No other bony proliferative changes are present. There is a small enthesophyte involving Achilles and plantar fascial attachments onto calcaneus. Left foot: There are no erosions. Small marginal osteophyte are present involving the bilateral first metatarsophalangeal joint. No other bony proliferative changes are present. There is a small enthesophyte involving plantar fascial attachment onto calcaneus. XR/XR Foot Danish 3V Impression: No changes consistent with inflammatory arthropathy. Minimal osteoarthritis involving lateral first MTP joints. Small calcaneal spurs. Electronically signed by: Franklin Noriega MD 12/18/2024 04:30 PM EDT
--- NOTE | ~2024-12-18 | XR_ITS ---
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 TECHNIQUE: Two views of the left hip. FINDINGS: Hip joint spaces preserved. There are no osteophytes. There is no erosion. XR/XR hip LT min 2V IMPRESSION: Unremarkable left hip Electronically signed by: Franklin Noriega MD 12/18/2024 04:26 PM EDT
--- NOTE | ~2024-12-18 | XR_ITS ---
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 TECHNIQUE: 3 views of the sacroiliac joints FINDINGS: There are no erosions. There is no bony sclerosis. There is no bony bridging. XR/XR sacroiliac joint min 3V IMPRESSION: Unremarkable SI joints. Electronically signed by: Franklin Noriega MD 12/18/2024 04:26 PM EDT
--- NOTE | ~2024-12-18 | XR_ITS ---
EXAMINATION: XR CERVICAL SPINE CLINICAL INFORMATION: M54.9 - Dorsalgia, unspecified COMPARISON: None available. TECHNIQUE: 3 views of the cervical spine were obtained. FINDINGS: There is straightening of the cervical lordosis. There is no prevertebral soft tissue swelling. Minimal disc space during is present at C5-6. There is ossification in the anterior disc annulus. Minimal uncovertebral sclerosis and osteophytes are evident at C3-4 and C4-5. XR/XR cervical spine 3V IMPRESSION: There is straightening of the expected cervical lordosis. This can be idiopathic, but can also be related to degenerative change, muscle spasm, or posterior soft tissue injury. Minimal degenerative changes. Electronically signed by: Franklin Noriega MD 12/18/2024 04:32 PM EDT
--- NOTE | ~2024-12-18 | XR_ITS ---
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 TECHNIQUE: Three views of the lumbosacral spine. FINDINGS: There are 5 nonrib-bearing lumbar segments. There is minimal disc space narrowing with anterior osteophytes at L2-3, L3-4, and L4-5. Vertebral body height and alignment is preserved. XR/XR lumbar spine 2-3V IMPRESSION: Minimal degenerative changes at L2-3, L3-4, and L4-5. Electronically signed by: Franklin Noriega MD 12/18/2024 04:31 PM EDT
--- OUTSIDE RECORDS SUMMARY | 2024-12-18 15:57 | XMS_ITS | Patient Health Record ---
Author Organization [facility] Address [address] [place] [phone] Care Team Providers Care Associate Teacher Name Role Phone MARIA E MARTÍNEZ Unavailable [phone] Allergies Allergen (clinical drug ingredient) Drug/Non Drug Allergy documented on EMR Reaction Allergy Type Onset Date Status Cat dander Cat Dander Unknown Allergy Active Dust Mites Unknown Allergy Active Results Component Value Reference Range Notes HBsAg Screen-[id number] Reviewed date:08/11/2024 11:04:41 AM Interpretation:Negative Performing Lab:[facility], [address], [address], [place], Phone - [phone], [facility] Notes/Report: Clinical Information:SRC:urine HBsAg Screen Negative Negative Hepatitis B Surf Ab Quant-00 [id number] Reviewed date:08/10/2024 12:13:49 PM Interpretation:Not Immune Performing Lab:[facility], [address], [address], [place], Phone - [phone], Director - [facility] Notes/Report: Clinical Information:SRC:urine Hepatitis B Surf Ab Quant 8.4 Immunity>10 mIU /mL Status of Immunity Anti-HBs Level Inconsistent with Immunity 0.0 - 10.0 Consistent with Immunity >10.0 T pallidum Screening Alsen -[id number] Reviewed date:08/11/2024 11:04:57 AM Interpretation:Negative Performing Lab:[facility], [address], [address], [place], Phone - [phone], Director - [facility] Notes/Report: Clinical Information:SRC:urine T pallidum Antibodies Non Reactive Non Reactive HIV Ab/p24 Ag with Reflex-[id number] Reviewed date:08/11/2024 11:04:50 AM Interpretation:Negative Performing Lab:[facility], [address], [address], [place], Phone - [phone], Director - [facility] Notes/Report: Clinical Information:SRC:urine HIV Ab/p24 Ag Screen Non Reactive Non Reactive HIV-1/HIV-2 antibodies and HIV-1 p24 antigen were NOT detected. There is no laboratory evidence of HIV infection. HIV Negative Ct, Ng, Trich vag by ARIEL-[id number] Reviewed date:08/11/2024 11:49:48 AM Interpretation:Negative Performing Lab:[facility], [address], [address], [place], Phone - [phone], Director - [facility] Notes/Report: Clinical Information:SRC:urine Chlamydia by ARIEL Negative Negative Gonococcus by ARIEL Negative Negative Trich vag by ARIEL Negative Negative Ct/GC ARIEL, Pharyngeal-[id number] Reviewed date:08/11/2024 11:49:39 AM Interpretation:Negative Performing Lab:[facility], [address], [address], [place], Phone - [phone], Director - [facility] Notes/Report: Clinical Information:SRC:urine C. trachomatis, ARIEL, Pharyn Negative Negative N. gonorrhoeae, ARIEL, Pharyn Negative Negative HCV Antibody-[id number] Reviewed date:08/11/2024 11:04:34 AM Interpretation:Negative Performing Lab:[facility], [address], [address], [place], Phone - [phone], Director - [facility] Notes/Report: Clinical Information:SRC:urine Hep C Virus Ab Non Reactive Non Reactive HCV antibody alone does not differentiate between previously resolved infection and active infection. Equivocal and Reactive HCV antibody results should be followed up with an HCV RNA test to support the diagnosis of active HCV infection. Reason For Referral No Information Medications Medication [...] bw Encounters Encounter Location Date Provider Diagnosis [address] [phone] 08/09/2024 MARIA E MARTÍNEZ Encounter for scre [...] Insured Coverage Start Date Coverage End Date [facility] [employer] [address] [address] [place], [place] [phone] [id number] Andreina Munguia Self - patient is the insured Medications Administered Medication Instructions Date of Administration Dosage Notes Depo 150mg 02/12/2023 Depo 150mg 05/10/2023 Depo 150mg 08/06/2023 Medical (General) History Medical History History ICD Code Weight concerns PTSD Psoriatic arthritis, joint pain ADHD Functional autism Surgical History Surgery Date(Month/Year) 2024 broken leg
== END 2024-12-18 15:41 | disposition home or self-care (01) ==
LOC: HO.XRAY 15:40
PROVIDERS: PCP Family Medicine; Visit Provider Internal Medicine Rheumatology
DX: L40.54 Psoriatic juvenile arthropathy (principal); M54.9 Dorsalgia, unspecified; M35.7 Hypermobility syndrome
CPT/HCPCS: 72040; 72100; 72202; 73502; 73630

== ENCOUNTER → 2024-12-18 15:44 | Outpatient (BNV) | payer OTHER, SELFPAY | PROVIDERS: PCP Family Medicine; Visit Provider Radiology Diagnostic Radiology | DX: M51.369 Other intervertebral disc degeneration, lumbar region without mention of lumbar back pain or lower extremity pain (principal); M54.9 Dorsalgia, unspecified; L40.54 Psoriatic juvenile arthropathy; M19.079 Primary osteoarthritis, unspecified ankle and foot | CPT/HCPCS: 72040; 72100; 72202; 73502; 73630 ==

== ENCOUNTER 2025-02-16 07:33 | Outpatient (REF) | payer OTHER, SELFPAY ==
--- OUTSIDE RECORDS SUMMARY | 2023-11-03 06:30 | XMS_ITS ---
Author Organization [facility] Address [address] [place] [id number] Care Team Providers Care Vice President Fixed Income Name Role Phone MARIA E MARTÍNEZ Unavailable [phone] REASON FOR VISIT Depo Social History Sex Assigned At : Social History Observation Description Sex Assigned At Female Encounters Encounter Location Date Provider Diagnosis [address] [phone] 04/2024 MARIA E MARTÍNEZ Plan Of Treatment No Information Progress Notes * Andreina MUNGUIA EDOB: [birth year] (39 yo F)Acc No.[id number]:11/03/2023 Progress Notes Patient: Jesus quevedoAndreina kim Jeromy Provider: Liz MARTÍNEZ :1985 A ge:38 Y S ex:Female Date:11/03/2023 Address:[address] [place], [place] [phone] Subjective: * Chief Complaints: * D epo Billing Information: * Procedure Codes: * Electronic signature of KENYA MARTÍNEZ CNM on 02/16/2025 at 07:36 AM EDT Sign off status: Pending * Provider: Liz MARTÍNEZ Date: 0 11/03/2023 Generated for Eliu kim/Fuad/Roxy on: 0 02/16/2025 07:36 AM EDT
--- OUTSIDE RECORDS SUMMARY | 2024-01-15 05:00 | XMS_ITS ---
Author Organization [facility] Address [address] [place] [address] Care Team Providers Care Forestry Fire Aide Name Role Phone Migration, Provider Unavailable Unavailable REASON FOR VISIT EMR-Jordan Encounters Encounter Location Date Provider Diagnosis [facility] [address] [address] [place] [address] 01/15/2024 Provider Migration Plan Of Treatment No Information Progress Notes * MAYRA SPRINGOB: 7 (39 yo F)Acc No.[id number]:01/15/2024 Patient: Jesus ART MCFARLAND :1985 A ge:38 Y S ex:Female Address:[address], [place], [address] Subjective: * Chief Complaints: * E MR-Jordan * * Date:
--- OUTSIDE RECORDS SUMMARY | 2024-01-16 05:00 | XMS_ITS ---
Author Organization [facility] Address [address] [address] [place] [address] Care Team Providers Care Fibre Cement Moulder Name Role Phone Migration, Provider Unavailable Unavailable REASON FOR VISIT EMR-Jordan Encounters Encounter Location Date Provider Diagnosis [facility] [address] [facility] [place] [address] 01/16/2024 Provider Migration Plan Of Treatment No Information Progress Notes * MAYRA SPRINGOB: 7 (39 yo F)Acc No.[id number]:01/16/2024 Patient: Jesus ART MCFARLAND :1985 A ge:38 Y S ex:Female Address:[address], [place], [address] Subjective: * Chief Complaints: * E MR-Jordan * * Date:
--- OUTSIDE RECORDS SUMMARY | 2025-02-16 07:35 | XMS_ITS | Patient Health Record ---
Author Organization [facility] Address [address] [place] [address] [place], [place] [id number] Care Team Providers Care Line Service Supervisor Name Role Phone MARIA E MARTÍNEZ Unavailable [phone] Allergies Allergen (clinical drug ingredient) Drug/Non Drug Allergy documented on EMR Reaction Allergy Type Onset Date Status Cat dander Cat Dander Unknown Allergy Active Dust Mites Unknown Allergy Active Results Component Value Reference Range Flag Notes HBsAg Screen-[id number] Reviewed date:08/11/2024 11:04:41 AM Interpretation:Negative Performing Lab:[facility] [place], [address], [address], [employer] [place], Phone - [phone], Director - [facility] Notes/Report: Clinical Information:SRC:urine HBsAg Screen Negative Negative Hepatitis B Surf Ab Quant-[id number] Reviewed date:08/10/2024 12:13:49 PM Interpretation:Not Immune Performing Lab:[facility] [place], [address], [address], [place] [place], Phone - [phone], Director - [facility] Notes/Report: Clinical Information:SRC:urine Hepatitis B Surf Ab Quant 8.4 Immunity>10 mIU/mL L Status of Immunity Anti-HBs Level Inconsistent with Immunity 0.0 - 10.0 Consistent with Immunity >10.0 T pallidum Screening Murray -[id number] Reviewed date:08/11/2024 11:04:57 AM Interpretation:Negative Performing Lab:[facility] [place], [address], [address], [employer], Phone - [phone], Director - [facility] Notes/Report: Clinical Information:SRC:urine T pallidum Antibodies Non Reactive Non Reactive HIV Ab/p24 Ag with Reflex-08 [id number] Reviewed date:08/11/2024 11:04:50 AM Interpretation:Negative Performing Lab:[facility] [place], [address], [address], [employer], Phone - [phone], Director - [facility] Notes/Report: Clinical Information:SRC:urine HIV Ab/p24 Ag Screen Non Reactive Non Reactive HIV-1/HIV-2 antibodies and HIV-1 p24 antigen were NOT detected. There is no laboratory evidence of HIV infection. HIV Negative Ct, Ng, Trich vag by ARIEL-[id number] Reviewed date:08/11/2024 11:49:48 AM Interpretation:Negative Performing Lab:[facility] [place], [address], [address], [employer], Phone - [phone], Director - [facility] Notes/Report: Clinical Information:SRC:urine Chlamydia by ARIEL Negative Negative Gonococcus by ARIEL Negative Negative Trich vag by ARIEL Negative Negative Ct/GC ARIEL, Pharyngeal-[id number] Reviewed date:08/11/2024 11:49:39 AM Interpretation:Negative Performing Lab:[facility] [place], [address], [address], [employer], Phone - [phone], Director - [facility] Notes/Report: Clinical Information:SRC:urine C. trachomatis, ARIEL, Pharyn Negative Negative N. gonorrhoeae, ARIEL, Pharyn Negative Negative HCV Antibody-[id number] Reviewed date:08/11/2024 11:04:34 AM Interpretation:Negative Performing Lab:[facility] [place], [address], [address], [employer], Phone - [phone], Director - [facility] Notes/Report: Clinical Information:SRC:urine Hep C Virus Ab Non Reactive Non Reactive HCV antibody alone does not differentiate between previously resolved infection and active infection. Equivocal and Reactive HCV antibody results should be followed up with an HCV RNA test to support the diagnosis of active HCV infection. Reason For Referral No Information Medications Medication SIG (Take, Route, Frequency, Duration) Notes Start Date End Date Status Prazosin HCl Active Omeprazole Active Depo-Provera Not-Calin ing/PRN Albuterol As needed Active busPIRone HCl Active Venlafaxine HCl Acti ve traZODone HCl Active Social History Sex Assigned At : Social History Observation Description Sex Assigned At Female Social History HIV Risk Assessment Social Info Question Answer Notes Additional Questions Is an HIV Risk Assessment being c onducted? Yes Have you been tested for HIV before? No Did you have a blood transfusion prior to 1985? No Do you have an unlicensed body piercing or tattoo? No Reproductive Life Plan: Social Info Question Answer Notes Reproductive Life Plan: Do you want to h ave children? No, I don't want to have children How sure are you that you will be able to use your control method without any problems? Very sure People's plans change. Is it possible you or your partner could ever decide to become ? No Human Trafficking: Social Info Question Answer Notes Human Trafficking Experienced: No PrEP for HIV: Social Info Question Answer Notes PrEP for HIV Is the client intere sted in beginning/continuing PrEP for HIV? No Sexual History: Social Info Question Answer Notes Sexual History: Sexual History Reviewed: Partner s, Practices, Protection/Past STIs Currently sexually active? Yes Sexually active with: Assigned Female at Number of assigned female at partners 1 intermediate manager partner Your sexual activities include: oral intercourse, vaginal intercourse Per client Do you use condoms? No Date of last unprotected intercourse: 07/26/2024 Number of partners in past 3 months: 1 Number of partners in past year: 1 Does your partner(s) currently have any STIs? No Counseling Provided: Social Info Question Answer Notes Counseling Provided Please indicate the length of time, in minutes, that counseling was provided. 10 Counseling Was Provided By: kiesha Drugs/Alcohol: Social Info Question Answer Notes Drug/Alcohol Use Do you or have you used drugs? No Per client Do you or have you used alcohol? Yes, currently A few times a month per client Food Access: Social Info Question Answer Notes Food Access The Client's current access to food is Secure Food Access Relationships: Social Info Question Answer Notes Relationships Has the client exper ienced any of the following: Client has never experienced harmful relationships Housing Social Info Question Answer Notes Housing The client's current living situation is: stable housing Tobacco Use: Social Info Question Answer Notes Tobacco Use: Do you/have you used tobacco? No Per client Tobacco Smoking Status Unknown if ever smoked Section Notes: Aptima/ bw Aptima done 11/27/22 - Decline s bw Declines Aptima/Bw Aptima/ bw Encounters Encounter Location Date Provider Diagnosis [place] [facility] [address] [place], [place] [id number] 08/09/2024 MARIA E TANYA Encounter for scre ening for infections with [...] Insured Coverage Start Date Coverage End Date [facility] [address] [address] [place], [place] [id number] Andreina Munguia Self - patient is the insured Medications Administered Medication Instructions Date of Administration Dosage Notes Depo 150mg 02/12/2023 Depo 150mg 05/10/2023 Depo 150mg 08/06/2023 Medical (General) History Medical History History ICD Code Weight concerns PTSD Psoriatic arthritis, joint pain ADHD Functional autism Surgical History Surgery Date(Month/Year) 2024 broken leg
--- OUTSIDE RECORDS SUMMARY | 2025-02-16 07:36 | XMS_ITS | Clinical Summary ---
Author Organization [facility] Address [address] [facility] [address] [place] [address] Phone Care Team Providers Care Fruit Picker Name Role Phone Saurav Mendoza MD Primary Care Provider Allergies Active Allergy Reactions Criticality Noted Date Comments Cat Dander Unknown 08/16/2023 House Dust Mite Unknown 08/16/2023 Medications venlafaxine (EFFEXOR-XR) 75 MG 24 hr capsule 150 mg. 4 Active methylphenidate (CONCERTA) 36 MG ER tablet Take 72 mg by mouth every morning. Active calcipotriene (CALCITRENE) 0.005 % ointment Apply topically 2 (two) times a day. 120 g 4 Active albuterol 90 mcg/actuation inhaler Inhale 2 puffs into the lungs every 6 (six) hours as needed for wheezing. Active traZODone (DESYREL) 100 MG tablet Take 100 mg by mouth nightly at bedtime. Active acetaminophen (TYLENOL) 325 mg tablet Take 2 tablets (650 mg total) by mouth every 4 (four) hours as needed for pain (specific location in comments). 5 Active ibuprofen (ADVIL,MOTRIN) 200 MG tablet Take 3 tablets (600 mg total) by mouth every 6 (six) hours as needed for pain (specific location in comments). 5 Active oxyCODONE 5 MG immediate release tablet Take 1 tablet (5 mg total) by mouth every 4 (four) hours as needed for pain (specific location in comments). Partial fill ok 6 tablet 5 Active Active Problems Problem Noted Date Diagnosed Date Closed displaced fracture of lateral malleolus of fibula with routine healing 2024 Request for sterilization 08/03/2024 Assessment & Plan (08/03/2024 9:24 PM EDT): We reviewed the surgical procedure for permanent sterilization (laparoscopic bilateral salpingectomy). Discussed that this procedure is irreversible, associated risks include bleeding, infection, damage to surrounding structures (uterus, ovaries), and regret. We discussed concurrent risk reduction for ovarian cancer with removal of both fallopian tubes. We reviewed alternatives including LARC (IUD, Nexplanon). Andreina is sure in her decision to proceed with sterilization, no life circumstances will change her mind. Case request submitted. [employer] sterilization form signed. ADHD 01/28/2024 Celiac disease 01/28/2024 Psoriasis 01/28/2024 Psoriatic arthritis 01/28/2024 PTSD (post-traumatic stress disorder) 01/28/2024 Encounters Date Type Department Care Team Description 12/14/2024 11:44 AM EDT Anesthesia Event OR Admitting Dept - Virtual Department [address] [place] [address] Lucia Flores MD, KIKA 12/14/2024 10:48 AM EDT - 12/14/2024 12:11 PM EDT Surgery OR Admitting Dept - Virtual Department [address] [place] [address] Paige Almaguer MD LAPAROSCOPIC SALPINGECTOMY BILATERAL 12/14/2024 9:09 AM EDT - 12/14/2024 3:30 PM EDT Hospital Encounter OR Admitting Dept - Virtual Department [address] [place] [address] Paige Almaguer MD Discharge Disposition: Home or Self Care 12/14/2024 Procedure Pass OR Admitting Dept - Virtual Department [address] [place] [address] 12/13/2024 8:00 AM EDT Pre-Admission Testing Pre Procedure Evaluation [address] [place] [address] Paige Almaguer MD 11/29/2024 2:30 PM EDT Office Visit [facility] [address] [place] [address] [place] [address] Paige Almaguer MD Request for sterilization (Primary Dx) from Last 3 Months Immunizations Immunization Administration Dates Next Due Influenza Quadrivalent MDCK Preservative Free IM 02/04/2023 Social History Tobacco Use Types Packs/Day Years Used Date Smoking Tobacco: Never Smokeless Tobacco: Never Tobacco Cessation:Counseling Given: Not Answered Alcohol Use Standard Drinks/Week Comments Yes 3 [...] on file Sexual Orientation Not on file Last Filed Vital Signs Vital Sign Reading [...] Mass Index 39.16 12/14/2024 9:20 AM EDT Plan of Treatment Health Maintenance Due Date Last Done Comments DEPRESSION SCREENING 1998 HEPATITIS C SCREENING 2004 HIV ONE-TIME SCREENING (18-6 5 YEARS) 2004 PAP SMEAR 09/15/2007 SCREENING FOR DIABETES 2021 INFLUENZA VACCINE (#1) 2024 , 02/04/2023 Adult Td,Tdap Booster 08/18/2034 08/18/2024 COVID-19 VACCINE Completed 05/10/2024, 03/29/2023 SMOKING STATUS SCREENING (On ce After 26 Yrs) Completed 12/14/2024 HEPATITIS A VACCINES Aged Out No long er eligible based on patient's age to complete this topic HIB VACCINES Aged Out No longer eligi ble based on patient's age to complete this topic MENINGOCOCCAL VACCINES (ACWY) Aged Out No longer eligible based on patient's age to complete this topic MENINGOCOCCAL VACCINES (B) Aged Out N o longer eligible based on patient's age to complete this topic PNEUMOCOCCAL VACCINES (0-49 years) Aged Out No longer eligible b ased on patient's age to complete this topic Medical Devices Not on file Procedures Procedure Name Priority Date/Time Associated Diagnosis Comments AIRWAY PLACEMENT Routine 12/14/2024 11:5 6 AM EDT IA LAP,RMV ADNEXAL STRUCTURE 12/14/2024 11:44 AM EDT Request for sterilization ANATOMIC PATHOLOGY Routine 12/14/2024 12 :00 AM EDT from Last 3 Months Results * ANES ETT DOUBLE LUMEN - AIRWAY LDA (12/14/2024 11:56 AM EDT) Narrative Lucia Flores MD, KIKA - 12/14/2024 11:56 AM EDT Lucia Flores MD, KIKA 12/14/2024 12:33 PM Airway Placement Procedure Note: Patient was not difficult to intubate. Procedure performed by: anesthesiologist Anesthesiologist: Lucia Flores MD, KIKA Airway procedure initiated at:12/14/2024 11:56 AM and ended at. Personal Protective Equipment: Mask: surgical mask Gloves: gloves Mask Ventilation: Quality: easy Airway Placement: Technique: direct laryngoscopy Rapid sequence induction: no Details: Blade type: Mac Blade size: 3 Direct view: grade 2 Number of attempts: 1 ETT type: cuffed ETT size: 7.5 ETT depth at teeth: 20 Tube position confirmed by: bilateral breath sounds and EtCO2 Bite Block: soft Outcomes: Evidence of dental injury? no Complications observed? no us Lucia Flores MD, KIKA IA ANESTHESIA Final R esult * Anatomic Pathology (12/14/2024 12:00 AM EDT) 12/14/2024 12/14/2024 2:3 7 PM EDT Narrative SEE NARRATIVE - 12/15/2024 12:19 PM EDT [address] [address] Manager Of Hospital: Kurtis Joyce MD Surgical Pathology Report FINAL [...] mucosa. A mass is not identified grossly. Warehouse Clerk sections to include the distal aspect bisected [...] mucosa. A mass is not identified grossly. Warehouse Clerk sections to include the distal aspect bisected are submitted in a single cassette labeled B1. Grossed by: CHRISTINA Ford, PA(ASCP) [id number] 12/14/2024 Grossing Staff: [id number] Patient Name: ANDREINA MUNGUIA : 1985 (Age: 39) Sex: F [facility]: [facility] Date of Operation: 12/14/2024 Date of Reported: 12/15/2024 12:19 Results To: Paige Mendoza MD us Paige Almaguer MD PATHOLOGY ORDERABLES Final Re sult SEE NARRATIVE from Last 3 Months Insurance [employer] NON NSPG PCP [employer] CONNE[employer]CARE [employer] NON NSPG PCP SIL[employer] CONNECTORCARE [employer] NON NSPG PCP S[place] CONNECTORCARE [facility] NON NSPG PCP SILVER CLARITY CONNECTORCARE [employer] NON NSPG PCP [employer] CONNECTORCARE [facility] NON NSPG [facility]CP [facility] Advance Directives For more information, please contact: [phone] (9AM - 5PM [facility], Wednesday-Wednesday) * Full Code (Latest Code Status on File) Date Activated Date Inactivated Comments 12/14/2024 9:33 AM Question Answer Comments Code Status Confirmed With: Patient Care Teams Fruit Picker Relationship Specialty Start Date End Date Saurav Mendoza MD [address] [place] [address] PCP - General Family Medicine 09/14/24 Additional Source Comments The information contained in this document represents components of the legal health record. It is not the complete legal health record.[facility]
--- OUTSIDE RECORDS SUMMARY | 2025-02-16 07:36 | XMS_ITS | Encounter Summary ---
Author Organization [facility] Address [address] [facility] [address] [place] [address] Phone Care Team Providers Care Tire Shop Manager Name Role Phone Saurav Mendoza MD Primary Care Provider Encounter Details Date Type Department Care Team (Late st Contact Info) Description 12/14/2024 Procedure Pass OR Admitting Dept - Virtual Department [address] [place] [address] Social History Tobacco Use Types Packs/Day Years [...] on file documented as of this encounter Plan of Treatment Not on file documented as of this encounter Visit Diagnoses Not on filedocumented in this encounter Care Teams Tire Shop Manager Relationship Specialty Start Date End Date Saurav Mendoza MD [address] [place] [address] PCP - General Family Medicine 09/14/24 documented as of this encounter Additional Source Comments The information contained in this document represents components of the legal health record. It is not the complete legal health record.[facility]
--- OUTSIDE RECORDS SUMMARY | 2025-02-16 07:36 | XMS_ITS | Patient Health Record ---
Author Organization [facility] Address [address] [place] [address] Support Name Relationship Address Phone [employer] [place] Guarantor Unknown [phone] Reason For Referral No Information Plan Of Treatment No Information Insurance Providers Payer Name Payer Address Payer Phone Subscriber Number Group Number Insured Name Patient Relationship to Insured Coverage Start Date Coverage End Date [facility] [address] [address] [place], [place] [id number] [place] Self - patient is the insured 2
[2025-02-16 07:59] LABS: MANUAL DIFF FLAG NO
[2025-02-16 08:26] LABS: Hematocrit 39.0 % (37.0-47.0); Hemoglobin 13.3 g/dl (12.0-16.0); Imm Gran Abs Auto 0.01 X10*3/uL (0.00-0.03); Imm Gran Pct Auto 0.2 % (0.0-0.4); Lymphocytes Absolute Auto 1.6 X10*3/uL (1.2-4.9); Mean Corpuscular HGB Conc 34.1 g/dl (31.0-35.0); Mean Corpuscular Hemoglobin 28.4 pg (27.0-33.0); Mean Corpuscular Volume 83.3 fL (80.0-98.0); NRBC Abs Auto 0.000 X10*3/uL (0.0-0.012); NRBC Pct Auto 0.0 /100WBC (0.0-0.2); Platelet Count 243 X10*3/uL (160-400); Red Blood Count 4.68 X10*6/uL (4.20-5.50); White Blood Count 6.6 X10*3/uL (4.8-10.8)
[2025-02-16 09:01] LABS: Appearance Urine Clear; Glucose Urine UA Negative (Negative); PH 7.0 (5.0-9.0); Specific Gravity - Urine 1.015 (1.005-1.025)
[2025-02-16 09:05] LABS: Microalbum/Creatinine Ratio Ur 6.2 ug/mg cr (<30)
[2025-02-16 09:21] LABS: Anion Gap 9 (12-20); Blood Urea Nitrogen 9 mg/dL (9-16); Carbon Dioxide 28 mmol/L (22-29); Chloride 108 mmol/L (96-108); Estimated Glomerular Filt Rate > 60; Potassium 4.1 mmol/L (3.3-5.1); Sodium 141 mmol/L (135-145)
[2025-02-16 09:22] LABS: Alanine Aminotransferase 15 U/L (0-31); Albumin Level 4.3 g/dL (3.5-5.0); Alkaline Phosphatase 85 U/L (39-117); Aspartate Amino Transferase 18 U/L (5-31); Calcium 9.0 mg/dL (8.4-10.2); Cholesterol 197 mg/dL (<200); HDL Cholesterol 47 mg/dL (>40); Total Protein 7.2 g/dL (6.5-8.0); Triglycerides 127 mg/dL (<150)
[2025-02-16 10:18] LABS: Free T4 (Free Thyroxine) 0.74 ng/dL (0.71-1.85)
== END 2025-02-16 07:34 | disposition home or self-care (01) ==
LOC: HO.LAB 07:33
PROVIDERS: PCP Family Medicine; Visit Provider Family Medicine
DX: Z00.00 Encounter for general adult medical examination without abnormal findings (principal); I10 Essential (primary) hypertension; J45.20 Mild intermittent asthma, uncomplicated; E78.00 Pure hypercholesterolemia, unspecified; E66.01 Morbid (severe) obesity due to excess calories; G47.30 Sleep apnea, unspecified; G47.10 Hypersomnia, unspecified; R79.89 Other specified abnormal findings of blood chemistry; Z79.899 Other long term (current) drug therapy; Z68.41 Body mass index [BMI] 40.0-44.9, adult
CPT/HCPCS: 36415; 80053; 80061; 81003; 82043; 82570; 84439; 84443; 85025; 96160; 99212

== ENCOUNTER 2025-02-16 11:59 | Outpatient (AMB) | payer OTHER, SELFPAY ==
--- NOTE | 2025-02-16 12:00 | MHC.PC.OV ---
Vital Signs 02/16/25 12:06 Height 5 ft 7.95 in Weight 267 lb BMI 40.7 BP 124/82 Blood Pressure Location Rt brachial Position Sitting Respiration 16 Pulse 89 Pulse Source Pulse Oximeter Temp 98.1 F Temp Source Oral Pulse Oximetry (%) 97 Oxygen Delivery Method Room Air Intake Visit Reasons: [address] Abad routine asthma FU Intake Note: patient here for 6 month follow up on Asthma Shadowgraph Scale Operator Required: No Is last menstrual period known: Yes Last menstrual period: 02/06/25 Post menopausal: No Patient : No Allergies No Known Allergies Allergy (Verified 02/16/25 12:04) Medication List - Last Reconciled 02/16/25 by Saurav Mendoza MD albuterol sulfate 90 mcg/actuation 1 inh inhalation ONCE budesonide-formoterol 160-4.5 mcg/actuation (Symbicort) 1 inh inhalation BID 30 days calcipotriene 0.005% 1 appl topical BID famotidine 20 mg PO BEDTIME 30 days methylphenidate HCl ER 72 mg PO DAILY omeprazole 20 mg PO DAILY 30 days tapinarof 1% (Vtama) 1 appl topical DAILY trazodone 150 mg PO DAILY venlafaxine 150 mg PO DAILY Tobacco use date assessed: 02/16/25 Dental Screening Dental Screen Date: 02/16/25 Did you have a dental visit in the last 12 months?: No Did you have a dental problem in the last 6 months where you did not have access to dental care?: No Was dental information given to patient?: No HPI [address] Abad routine asthma FU HPI Details 39 y/o female presents to f/u labs. Labs drawn 02/16/25. Reviewed labs with pt. Triglycerides 127. TC 197. LDL 125. HDL 47. TSH 5.66 uIU/mL. Free T4 0.74 ng/dL. Notes some hypersomnia/symptoms of sleep apnea. Does have questions about her weight. 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 Current occupational exposures/hazards: No Cognitive needs: No Hearing needs: No Vision needs: Yes Female Reproductive History Menstrual Date of last menstrual period: 02/06/25 Questionnaire Thrive Questionnaire Date Thrive assessed: 06/02/24 I am a: Patient What is your living situation today?: I have a steady place to live Within the past 12 months, did the food you bought not last and you didn't have the money to get more?: Sometimes True Within the past 12 months, did you worry whether your food would run out before you got money to buy more?: Sometimes True Do you have trouble paying for medicines?: No Do you have trouble getting transportation to medical appointments?: Yes Do you have trouble paying your heating and electricity bill?: No Do you have trouble taking care of your child, family member or friend?: No Do you have trouble with day-to-day activities such as bathing, preparing meals, shopping, managing finances, etc.?: Yes Are you currently unemployed and looking for a job?: No Are you interested in more education?: No Please select the resources that you would like help with: None Currently or been in a relationship where the following occur: No concerns reported THRIVE Score: 3 MICHAEL-7 AMB Questionnaire MICHAEL-7 Date MICHAEL - 7 assessed: 08/18/24 Source: Developed by Drs. John Danielson, Anita Maria, German Alvarez and colleagues, with an educational vic from [employer]. ACT Questionnaire In the past 4 weeks, how much of the time did your asthma keep you from getting as much done at work, school or at home?: None of the time During the past 4 weeks, how often have you had shortness of breath?: Not at all During the past 4 weeks, how often did your asthma symptoms wake you up at night or earlier than usual in the morning?: Not at all During the past 4 weeks, how often have you had to use your rescue inhaler or nebulizer medication?: Not at all How would you rate your asthma control during the past 4 weeks?: Completely controlled Score: 25 Review of Systems Const Denies chills, Denies fatigue, Denies fever(s), Denies headache(s) and Denies weakness ENT Denies dizziness and Denies headache(s) Card Denies dyspnea Resp Denies cough, Denies dyspnea, Denies wheezing and Denies other (shortness of breath) Musc Denies numbness and Denies tingling Neuro Denies dizziness, Denies headache(s), Denies numbness, Denies tingling and Denies weakness Psych Denies anxiety and Denies depression Endo Denies fatigue Aller/Immun Denies wheezing Physical exam (Primary Care) Vital Signs: Last Vital Signs Temp 98.1 F 02/16/25 12:06 Pulse 89 02/16/25 12:06 Resp 16 02/16/25 12:06 BP 124/82 02/16/25 12:06 Pulse Ox 97 02/16/25 12:06 Oxygen Delivery Method Room Air 02/16/25 12:06 BMI result Body Mass Index 40.7 Tobacco/Smoking Status: Tobacco use Status Tobacco use date assessed 02/16/25 02/16/25 12:09 Patient Tobacco Use Status Never used Tobacco 02/16/25 12:02 e-Cigarette/Vaping Use Never Used 02/16/25 12:02 Thrive Assessment: Date of Thrive Assessment Date Thrive assessed 06/02/24 02/16/25 12:02 Currently or been in a relationship where the following occur: No concerns reported Const General: well developed; No acute distress Nutritional Appearance: well nourished Orientation/consciousness: patient oriented x3 HENMT Head: Yes normocephalic and Yes atraumatic Eyes General: appearance normal, both eyes and all related structures Pupils: Equal, round and reactive pupils present EOM: EOMs intact bilaterally Resp Effort & Inspection: normal respiratory effort Auscultation: clear to auscultation bilaterally Cardio Rate: regular rate Rhythm: regular rhythm Heart sounds: S1 normal heart sound present, S2 normal heart sound present, no gallops, no murmurs and no rubs Neuro General: patient oriented x3 and gait normal Cranial nerves: Yes Equal, round and reactive pupils present Psych Affect: normal affect Coding Level of Care Code Est Pt Level 3 (30290) Diagnoses Mild intermittent asthma without complication J45.20 Asthma complication type: uncomplicated Asthma persistence: intermittent Asthma severity: mild Elevated LDL cholesterol level E78.00 Morbid obesity E66.01 Sleep apnea G47.30 Hypersomnia G47.10 Elevated TSH R79.89 Assessment & Plan Assessment & Plan (1) Asthma: Code(s): J45.909 - Unspecified asthma, uncomplicated Category: Medical Qualifiers: Asthma complication type: uncomplicated Asthma persistence: intermittent Asthma severity: mild Qualified Code(s): J45.20 - Mild intermittent asthma, uncomplicated Plan: Lungs are clear patient is breathing easily today. She notes that she is out of her controller medication Continue current medications-will refill Symbicort (2) Elevated LDL cholesterol level: Code(s): E78.00 - Pure hypercholesterolemia, unspecified Category: Medical Plan: LDL cholesterol is too high Work at a diet low in saturated fats and cholesterol Will recheck lipids at next visit (3) Morbid obesity: Code(s): E66.01 - Morbid (severe) obesity due to excess calories Category: Medical Plan: Patient had been taking Contrave in the past but never had significant improvement in her weight We discussed GLP 1 medications. She will check with her insurance company We also discussed weight management. Could make a referral to weight management Will discuss further at visit (4) Sleep apnea: Code(s): G47.30 - Sleep apnea, unspecified Category: Medical (5) Hypersomnia: Code(s): G47.10 - Hypersomnia, unspecified Category: Medical (6) Elevated TSH: Code(s): R79.89 - Other specified abnormal findings of blood chemistry Category: Medical Plan: TSH is elevated Will recheck with next blood draw Plan Patient notes loud snoring and her partner nodes apneic events sleeping. Awakens feeling rested and she feels tired throughout her day Likely sleep apnea and I have referred her to Sleep Medicine Orders: Orders Lipid Panel Today Z00.00 - Encounter for general adult medical examination without abnormal findings Comprehensive [place]. Panel Fast Today Z00.00 - Encounter for general adult medical examination without abnormal findings Free T4 (Free Thyroxine) Today E03.9 - Hypothyroidism, unspecified Thyroid Stimulating Hormone Today E03.9 - Hypothyroidism, unspecified Triiodothyronine T3 Total Today E03.9 - Hypothyroidism, unspecified Referrals Sleep Medicine Referral G47.10 - Hypersomnia, unspecified, G47.30 - Sleep apnea, unspecified Medications: Refilled budesonide-formoterol 160-4.5 mcg/actuation (Symbicort) 1 inh inhalation BID 10.2 grams 2RF 30 days J45.909 - Unspecified asthma, uncomplicated
[2025-02-16 12:06] VITALS: BP 124/82; PULSE 89; RESP 16; TEMP 36.7; O2SAT 97; BMI 40.7
== END 2025-02-16 12:35 | disposition home or self-care (01) ==
LOC: HO.HMCFM 11:59
PROVIDERS: PCP Family Medicine; Visit Provider Family Medicine
DX: J45.20 Mild intermittent asthma, uncomplicated (principal); E78.00 Pure hypercholesterolemia, unspecified; E66.01 Morbid (severe) obesity due to excess calories; Z68.41 Body mass index [BMI] 40.0-44.9, adult; G47.30 Sleep apnea, unspecified; G47.10 Hypersomnia, unspecified; R79.89 Other specified abnormal findings of blood chemistry

== ENCOUNTER 2025-02-21 09:55 | Outpatient (AMB) | payer OTHER, SELFPAY ==
--- OUTSIDE RECORDS SUMMARY | 2023-11-03 06:30 | XMS_ITS ---
Author Organization [facility] Address [address] [place] [id number] Care Team Providers Care Sawmill Hand Name Role Phone MARIA E MARTÍNEZ Unavailable [phone] REASON FOR VISIT Depo Social History Sex Assigned At : Social History Observation Description Sex Assigned At Female Encounters Encounter Location Date Provider Diagnosis [address] [id number] 04/2024 MARIA E MARTÍNEZ Plan Of Treatment No Information Progress Notes * Andreina MUNGUIA EDOB: [birth year] (39 yo F)Acc No.[id number]:11/03/2023 Progress Notes Patient: Jesus quevedojudy Andreina Jeromy Provider: Liz MARTÍNEZ :1985 A ge:38 Y S ex:Female Date:11/03/2023 Address:[address] [place], [place] [phone] Subjective: * Chief Complaints: * D epo Billing Information: * Procedure Codes: * Electronic signature of KENYA MARTÍNEZ CNM on 02/21/2025 at 11:00 AM EDT Sign off status: Pending * Provider: Liz MARTÍNEZ Date: 0 11/03/2023 Generated for Eliu kim/Fuad/Roxy on: 11:00 AM EDT
--- OUTSIDE RECORDS SUMMARY | 2024-01-15 05:00 | XMS_ITS ---
Author Organization [facility] Address [address] [place] [address] Care Team Providers Care Accountant Budget Name Role Phone Migration, Provider Unavailable Unavailable REASON FOR VISIT EMR-Jordan Encounters Encounter Location Date Provider Diagnosis [facility] [address] [place] [address] 01/15/2024 Provider Migration Plan Of Treatment No Information Progress Notes * MAYRA SPRINGOB: 7 (39 yo F)Acc No.[id number]:01/15/2024 Patient: Jesus ART MCFARLAND :1985 A ge:38 Y S ex:Female Address:[address], [place], [address] Subjective: * Chief Complaints: * E MR-Jordan * * Date:
--- OUTSIDE RECORDS SUMMARY | 2024-01-16 05:00 | XMS_ITS ---
Author Organization [facility] Address [address] [place] [address] Care Team Providers Care Bisque Kiln Drawer Name Role Phone Migration, Provider Unavailable Unavailable REASON FOR VISIT EMR-Jordan Encounters Encounter Location Date Provider Diagnosis [facility] [address] [place] [address] 01/16/2024 Provider Migration Plan Of Treatment No Information Progress Notes * MAYRA SPRINGOB: 7 (39 yo F)Acc No.[id number]:01/16/2024 Patient: Jesus ART MCFARLAND :1985 A ge:38 Y S ex:Female Address:[address], [place], [address] Subjective: * Chief Complaints: * E MR-Jordan * * Date:
[2025-02-21 10:06] VITALS: BP 110/82; PULSE 86; O2SAT 99; BMI 40.4
--- NOTE | 2025-02-21 10:06 | MHC.OFFVIS ---
Vital Signs 02/21/25 10:06 Height 5 ft 7.95 in Weight 265 lb 3.457 oz BMI 40.4 BP 110/82 Blood Pressure Location Lt brachial Position Sitting Pulse 86 Pulse Source Pulse Oximeter Pulse Oximetry (%) 99 Oxygen Delivery Method Room Air Intake Visit Reasons: 2 month Intake Note: Patient presents today for Arthropathic psoriasis. Accompanied by: Self / Same As Patient Allergies No Known Allergies Allergy (Verified 02/21/25 10:07) HPI HPI 2 month: Details: 09/30 intensity of pain. She has left shoulder pain after breaking her dogs that were fighting. MS 15 minutes - back, knees,hips, shoulders She continues to have pain and swelling in feet - unchanged. She took tylenol 3 pills this morning. Taking two pills is ineffective. Takes advil PRN. Dermatology started Otezla 2 weeks ago for treatment of psoriasis. 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 Good respiratory effort Skin: No lesions seen MSK: No tenderness of upper extremities. Normal range of motion of upper extremities and lower extremities. Left trochanteric bursa tenderness found. She has bilateral knee valgus deformity. She has soft tissue swelling right ankle. No MTP tenderness. Bilateral hallux valgus and tailor's bunions present. No synovitis or dactylitis Results Reviewed Results Reviewed: EXAMINATION: XR SACROILIAC JOINTs FINDINGS: There are no erosions. There is no bony sclerosis. There is no bony bridging. XR/XR sacroiliac joint min 3V IMPRESSION: Unremarkable SI joints. EXAMINATION: XR LUMBOSACRAL SPINE FINDINGS: There are 5 nonrib-bearing lumbar segments. There is minimal disc space narrowing with anterior osteophytes at L2-3, L3-4, and L4-5. Vertebral body height and alignment is preserved. EXAMINATION: XR CERVICAL SPINE FINDINGS: There is straightening of the cervical lordosis. There is no prevertebral soft tissue swelling. Minimal disc space during is present at C5-6. There is ossification in the anterior disc annulus. Minimal uncovertebral sclerosis and osteophytes are evident at C3-4 and C4-5. XR/XR cervical spine 3V IMPRESSION: There is straightening of the expected cervical lordosis. This can be idiopathic, but can also be related to degenerative change, muscle spasm, or posterior soft tissue injury. Minimal degenerative changes. Assessment & Plan Assessment & Plan (1) Psoriatic arthritis: Comment: Mainly involving ankle and feet with joint pain and stiffness. Since January she has had recurrent episodes of ankle and foot swelling, which may be related to activity from uncontrolled psoriatic arthritis. Unremarkable joint exam today. She continues to have left trochanteric bursa pain (enthesitis). Imaging and labs reviewed with patient, which revealed mild elevation in CRP with negative HLA B27. She has mild osteoarthritis affecting C-spine, L-spine and left 1st and 5th MTP. There is no radiographic changes related to axial inflammatory arthritis. SI joint x-rays are normal. She started Otezla 2 weeks ago for treatment of psoriasis, which is also indicated for psoriatic arthritis. I will monitor her clinically on Otezla to assess benefit in improving her ankle and foot pain and stiffness. Rheumatology history: Diagnosed with psoriatic arthritis in childhood. She was in remission on Humira when she was on it for a year and a half up until 2021. Code(s): L40.50 - Arthropathic psoriasis, unspecified Category: Medical Plan: Continue Otezla prescribed by Dermatology Inflammatory markers ordered She can take Advil 600 mg q.8 hourly with Tylenol 500 mg or 650 mg 1-2 tablets q.8 hourly PRN pain Continue PT for lower extremity strengthening Return to clinic in 4 months (2) Benign hypermobility syndrome: Comment: Discussed diagnosis. Improved with PT. Code(s): M35.7 - Hypermobility syndrome Category: Medical Plan: Continue physical therapy She can take Advil 600 mg q.8 hourly with Tylenol 500 mg or 650 mg 1-2 tablets q.8 hourly PRN pain She is experiencing dizziness. I encouraged her to hydrate well, which was also relayed to her by her PCP. If she continues to experience these symptoms, I recommend that she follow up with PCP for further evaluation. POTS is associated with benign hypermobility syndrome and she may need evaluation by Cardiology. (3) Foot pain, bilateral: Code(s): M79.671 - Pain in right foot; M79.672 - Pain in left foot Category: Medical Plan: See above (4) Bilateral bunions: Code(s): M21.611 - Bunion of right foot; M21.612 - Bunion of left foot Category: Medical Plan: Wear supportive footwear Encouraged weight loss. She is working with PCP on weight loss plan (5) Tailor's bunionette, bilateral: Code(s): M21.621 - Bunionette of right foot; M21.622 - Bunionette of left foot Category: Medical Plan: Wear supportive footwear Encouraged weight loss. She is working with PCP on weight loss planloss (6) Lumbar spondylosis: Comment: Mild on x-ray Code(s): M47.816 - Spondylosis without myelopathy or radiculopathy, lumbar region Category: Medical Plan: Continue to work with physical therapy with back strengthening Encouraged weight loss. She is working with PCP on weight loss plan (7) Cervical spondylosis: Comment: With myofascial strain contributing to loss of lordosis noted on x-ray. We discussed conservative management Code(s): M47.812 - Spondylosis without myelopathy or radiculopathy, cervical region Category: Medical Plan: She will work with HR to obtain ergonomic workstation with standing desk option Can consider PT dedicated to neck pain in the future if needed Orders: Orders C Reactive Protein Today Z79.899 - Other termination clerk (current) drug therapy Erythrocyte Sedimentation Rate Today Z79.899 - Other senior care (current) drug therapy Coding Level of Care Code Est Pt Level 4 (50630) Complex EM visit Add On G2211 Diagnoses Psoriatic arthritis L40.50 Benign hypermobility syndrome M35.7 Foot pain, bilateral M79.671; M79.672 Bilateral bunions M21.611; M21.612 Tailor's bunionette, bilateral M21.621; M21.622 Lumbar spondylosis M47.816 Cervical spondylosis M47.812
--- OUTSIDE RECORDS SUMMARY | 2025-02-21 11:00 | XMS_ITS | Clinical Summary ---
Author Organization [facility] Address [address] [place] [address] Phone Care Team Providers Care Global Sourcing Manager Name Role Phone Saurav Mendoza MD [...] will change her mind. Case request submitted. [employer] sterilization form signed. ADHD 01/28/2024 Celiac disease 01/28/2024 Psoriasis 01/28/2024 Psoriatic arthritis 01/28/2024 PTSD (post-traumatic stress disorder) 01/28/2024 Encounters Date Type Department Care Team Description 12/14/2024 11:44 AM EDT Anesthesia Event OR Admitting Dept - Virtual Department [address] [place] [address] Lucia Flores MD, KIKA 12/14/2024 10:48 AM EDT - 12/14/2024 12:11 PM EDT Surgery OR Admitting Dept - Virtual Department [address] [place] [address] Paige Almaguer MD LAPAROSCOPIC SALPINGECTOMY BILATERAL 12/14/2024 9:09 AM EDT - 12/14/2024 3:30 PM EDT Hospital Encounter OR Admitting Dept - Virtual Department [address] [place] [address] Paige Almaguer MD Discharge Disposition: Home or Self Care 12/14/2024 Procedure Pass OR Admitting Dept - Virtual Department [address] [place] [address] 12/13/2024 8:00 AM EDT Pre-Admission Testing Pre Procedure Evaluation [address] [place] [address] Paige Almaguer MD 11/29/2024 2:30 PM EDT Office Visit [facility] [address] [place] [address] [place] [address] Paige Almaguer MD Request for sterilization (Primary [...] PLACEMENT Routine 12/14/2024 11:5 6 AM EDT MI LAP,RMV ADNEXAL STRUCTURE 12/14/2024 11:44 AM EDT Request for sterilization ANATOMIC PATHOLOGY Routine 12/14/2024 12 :00 AM EDT from Last 3 Months Results * ANES ETT DOUBLE LUMEN - AIRWAY LDA (12/14/2024 11:56 AM EDT) Narrative Lucia Flores MD, KIKA - 12/14/2024 11:56 AM EDT Lucia Flores MD, KIAK 12/14/2024 12:33 PM Airway Placement Procedure Note: [...] observed? no us Lucia Flores MD, KIKA MI ANESTHESIA Final R esult * Anatomic Pathology (12/14/2024 12:00 AM EDT) 12/14/2024 12/14/2024 2:3 7 PM EDT Narrative SEE NARRATIVE - 12/15/2024 12:19 PM EDT [address] [address] Range Mounter: Kurtis Joyce MD Surgical Pathology Report FINAL [...] mucosa. A mass is not identified grossly. [employer] sections to include the distal aspect bisected [...] mucosa. A mass is not identified grossly. [employer] sections to include the distal aspect bisected [...] [facility] NON NSPG PCP [facility] NON NSPG PCP [facility] NON NSPG PCP S[facility] NON NSPG PCP [facility] P[facility] Advance Directives For more information, please contact: [phone] (9AM - 5PM [facility], Wednesday-Wednesday) * Full Code (Latest Code Status on File) Date Activated Date Inactivated Comments 12/14/2024 9:33 AM Question Answer Comments Code Status Confirmed With: Patient Care Teams Global Sourcing Manager Relationship Specialty Start Date End Date Saurav Mendoza MD [address] [place] [address] PCP - General Family Medicine 09/14/24 Additional Source Comments The information contained in this document represents components of the legal health record. It is not the complete legal health record.[facility]
--- OUTSIDE RECORDS SUMMARY | 2025-02-21 11:00 | XMS_ITS | Patient Health Record ---
Author Organization [facility] Address [address] [place] [address] [place], [place] [id number] Care Team Providers Care Hide Worker Name Role Phone MARIA E MARTÍNEZ Unavailable [phone] Allergies Allergen (clinical drug ingredient) Drug/Non Drug Allergy documented on EMR Reaction Allergy Type Onset Date Status Cat dander Cat Dander Unknown Allergy Active Dust Mites Unknown Allergy Active Results Component Value Reference Range Flag Notes HBsAg Screen-[id number] Reviewed date:08/11/2024 11:04:41 AM Interpretation:Negative Performing Lab:[facility] [place], [address], [address], [place], Phone - [phone], Director - [facility] Notes/Report: Clinical Information:SRC:urine HBsAg Screen Negative Negative Hepatitis B Surf Ab Quant-00 6530 Reviewed date:08/10/2024 12:13:49 PM Interpretation:Not Immune Performing Lab:[facility] [place], [address], [address], [place], Phone - [phone], Director - [facility] Notes/Report: Clinical Information:SRC:urine Hepatitis B Surf Ab Quant 8.4 Immunity>10 mIU/mL L Status of Immunity Anti-HBs Level Inconsistent with Immunity 0.0 - 10.0 Consistent with Immunity >10.0 T pallidum Screening Mustang -[id number] Reviewed date:08/11/2024 11:04:57 AM Interpretation:Negative Performing Lab:[facility] [place], [address], [address], [place], Phone - [phone], Director - [facility] Notes/Report: Clinical Information:SRC:urine T pallidum Antibodies Non Reactive Non Reactive HIV Ab/p24 Ag with Reflex-08 [id number] Reviewed date:08/11/2024 11:04:50 AM Interpretation:Negative Performing Lab:[facility] [place], [address], [address], [place], Phone - [phone], Director - [facility] Notes/Report: Clinical Information:SRC:urine HIV Ab/p24 Ag Screen Non Reactive Non Reactive HIV-1/HIV-2 antibodies and HIV-1 p24 antigen were NOT detected. There is no laboratory evidence of HIV infection. HIV Negative Ct, Ng, Trich vag by ARIEL-[id number] Reviewed date:08/11/2024 11:49:48 AM Interpretation:Negative Performing Lab:[facility] [place], [address], [address], [place], Phone - [phone], Director - [facility] Notes/Report: Clinical Information:SRC:urine Chlamydia by ARIEL Negative Negative Gonococcus by ARIEL Negative Negative Trich vag by ARIEL Negative Negative Ct/GC ARIEL, Pharyngeal-[id number] Reviewed date:08/11/2024 11:49:39 AM Interpretation:Negative Performing Lab:[facility] [place], [address], [address], [place], Phone - [phone], Director - [facility] Notes/Report: Clinical Information:SRC:urine C. trachomatis, ARIEL, Pharyn Negative Negative N. 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 [address] [place], [place] [id number] Andreina Munguia Self - patient is the insured Medications Administered Medication Instructions Date of Administration Dosage Notes Depo 150mg 02/12/2023 Depo 150mg 05/10/2023 Depo 150mg 08/06/2023 Medical (General) History Medical History History ICD Code Weight concerns PTSD Psoriatic arthritis, joint pain ADHD Functional autism Surgical History Surgery Date(Month/Year) 2024 broken leg
--- OUTSIDE RECORDS SUMMARY | 2025-02-21 11:00 | XMS_ITS | Patient Health Record ---
Author Organization [facility] Address [address] [place] [address] Support Name Relationship Address Phone [employer] Guarantor Unknown [phone] Reason For Referral No Information Plan Of Treatment No Information Insurance Providers Payer Name Payer Address Payer Phone Subscriber Number Group Number Insured Name Patient Relationship to Insured Coverage Start Date Coverage End Date [employer] [address] [address] [place], [place] [id number] [employer] Self - patient is the insured 2
--- OUTSIDE RECORDS SUMMARY | 2025-02-21 11:00 | XMS_ITS | Encounter Summary ---
Author Organization [facility] Address [address] [facility] [place] [address] Phone Care Team Providers Care Top Lift Trimmer Name Role Phone Saurav Mendoza MD Primary Care Provider Encounter Details Date Type Department Care Team (Late st Contact Info) Description 12/14/2024 Procedure Pass OR Admitting Dept - Virtual Department [address] [place] [id number] Social History Tobacco Use Types Packs/Day Years [...] on filedocumented in this encounter Care Teams Top Lift Trimmer Relationship Specialty Start Date End Date Saurav Mendoza MD [address] [place] [address] PCP - General Family Medicine 09/14/24 documented as of this encounter Additional Source Comments The information contained in this document represents components of the legal health record. It is not the complete legal health record.[facility]
== END 2025-02-21 10:49 | disposition home or self-care (01) ==
LOC: HO.RHES 09:56
PROVIDERS: PCP Family Medicine; Visit Provider Internal Medicine Rheumatology
DX: L40.50 Arthropathic psoriasis, unspecified (principal); M35.7 Hypermobility syndrome; M79.671 Pain in right foot; M79.672 Pain in left foot; M21.611 Bunion of right foot; M21.612 Bunion of left foot; M21.621 Bunionette of right foot; M21.622 Bunionette of left foot; M47.816 Spondylosis without myelopathy or radiculopathy, lumbar region; M47.812 Spondylosis without myelopathy or radiculopathy, cervical region
CPT/HCPCS: 99214

== ENCOUNTER 2025-02-21 09:55 | Outpatient (REF) | payer OTHER, SELFPAY | END 2025-02-21 09:56 | disposition home or self-care (01) | LOC: HO.HKASLDS 09:55 | PROVIDERS: PCP Family Medicine; Visit Provider Internal Medicine Rheumatology | DX: L40.50 Arthropathic psoriasis, unspecified (principal); M35.7 Hypermobility syndrome; R42 Dizziness and giddiness; M21.621 Bunionette of right foot; M21.622 Bunionette of left foot; M47.816 Spondylosis without myelopathy or radiculopathy, lumbar region; M47.812 Spondylosis without myelopathy or radiculopathy, cervical region; Z79.899 Other long term (current) drug therapy | CPT/HCPCS: 36415; 85652; 86140; 99212 ==

== ENCOUNTER 2025-03-21 08:05 | Outpatient (RCR) | payer OTHER, SELFPAY ==
--- NOTE | 2025-01-24 13:35 | MHC.PT.EP ---
[facility] [place] [facility] [place] Office [place] Office [address] [place] Neri [address] [phone] F: [phone] F: [phone] F: [phone] F: [phone] Physical Therapy Plan of Care Date of Evaluation: 01/24/25 Date of Surgery: Diagnosis: Hypermobility syndrome Arthropathic psoriasis, unspecified Pain in right foot Benign hypermobility syndrome *Psoriatic arthritis *Foot pain, bilateral. Increase lower extremity strengthening Assessment: Pt is a pleasant and motivated 39yo F who presents to PT with B foot pain. She also reports B knee hip, and low back pain. She reports she fracture her L ankle in June. She presents to PT with current impairments in pain, decreased L foot ROM, decreased arch, decreased LE strength, decreased core stabilization, decreased balance, and impaired gait. She is limited functionally by prolonged standing, walking, getting in/out of the car, and stair navigation. She is an excellent candidate for skilled PT in order to address current impairments to facilitate return to PLOF. She is recommended to be seen 2x/week for 4 weeks and will be reassessed Frequency and Duration: The patient will be seen 2x/week for 4 weeks Short Term Goals: Pt will be I with HEP to promote self management of symptoms Pt will demonstrate improvements in postural awareness throughout the day Pt will get in/out of the car without pain Senior Care Goals: Pt will tolerate prolonged standing and walking > 1 hour with minimal to no pain Pt will ascend/descend 1 flight of stairs with reciprocal pattern independently without pain Pt will demonstrate improvements in function as evidenced by statistically significant improvement in LEFI outcome measure Treatment Plan: Modalities to reduce pain, spasms and effusion. Manual therapy to restore motion and function. Therapeutic exercise to improve strength and flexibility. Neuromuscular re-education for posture and balance. Therapeutic activities to return to functional activities of daily living. Electronically signed by: Holly Pierce, PT, DPT Please sign and return to therapist. Thank you for your referral.
--- NOTE | 2025-04-09 08:39 | MHC.PT.DC ---
[facility] [place] Office [place] Office [place] Office [address] [place] [address] [phone] F: [phone] F: [phone] F: [phone] F: [phone] Physical Therapy Discharge Report Diagnosis: Hypermobility syndrome Arthropathic psoriasis, unspecified Pain in right foot Benign hypermobility syndrome *Psoriatic arthritis *Foot pain, bilateral. Increase lower extremity strengthening Date of Surgery: Date of Evaluation: 01/24/25 Date of Discharge: 04/09/25 Treatments to Date: 12 Cancellations to Date: No Shows to Date: Discharge Status: Improved Function Independent with HEP Discharge Summary: Pt was seen for skilled PT from 01/24/25-03/21/25. Her last attended and scheduled appointment was 03/21/25. Her chart was left open for 2 weeks incase she had questions regarding her HEP. She is being D/C from skilled PT as she has not attended or called to reschedule in > 2 weeks. Please see assessment from last PT treatment note below: Pt continues to be motivated to participate. She has made good progress with skilled PT. She has increased her score on LEFI outcome measure from 29/80 on initial PT evaluation to 46/80 today. She has demonstrated improvements in LE strength and stability and improvements in body mechanics noted throughout exercises. She demonstrates independence and compliance with HEP. At this time she is recommended to be D/C to HEP. Her chart will be left open for 2 weeks in case she has questions regarding her HEP, pt verbalized understanding Electronically signed by: oHlly Catalan, PT, DPT Please sign and return to therapist. Thank you for your referral.
== END 2025-04-09 08:38 | disposition home or self-care (01) ==
LOC: HO.PT 08:05
PROVIDERS: PCP Family Medicine; Visit Provider Internal Medicine Rheumatology
DX: M35.7 Hypermobility syndrome (principal); L40.50 Arthropathic psoriasis, unspecified; M79.671 Pain in right foot; M79.672 Pain in left foot
CPT/HCPCS: 97110; 97112; 97161

== ENCOUNTER 2025-03-28 08:32 | Outpatient (AMB) | payer OTHER, SELFPAY ==
--- OUTSIDE RECORDS SUMMARY | 2023-11-03 05:30 | XMS_ITS ---
Author Organization [facility] Address [address] [place] [address] Care Team Providers Care Child Care Lead Teacher Name Role Phone MARIA E MARTÍNEZ Unavailable [phone] REASON FOR VISIT Depo Social History Sex Assigned At : Social History Observation Description Sex Assigned At Female Encounters Encounter Location Date Provider Diagnosis [facility] [address] [place], [place] [id number] 04/2024 MARIA E MARTÍNEZ Plan Of Treatment No Information Progress Notes * Andreina MUNGUIA EDOB: [birth year] (39 yo F)Acc No.[id number]:11/03/2023 Progress Notes Patient: Jesus quevedoAndreina kim Jeromy Provider: Liz MARTÍNEZ :1985 A ge:38 Y S ex:Female Date:11/03/2023 Address:[address] [place], [place] [phone] Subjective: * Chief Complaints: * D epo Billing Information: * Procedure Codes: * Electronic signature of KENYA MARTÍNEZ CNM on 03/28/2025 at 08:46 AM EST Sign off status: Pending * Provider: Liz MARTÍNEZ Date: 0 11/03/2023 Generated for Eliu kim/Fuad/Roxy on: 05/28/2024 08:46 AM EST
--- OUTSIDE RECORDS SUMMARY | 2024-01-15 04:00 | XMS_ITS ---
Author Organization [facility] Address [address] [place] [address] Care Team Providers Care Newspaper Or Periodical Editor Name Role Phone Migration, Provider Unavailable Unavailable REASON FOR VISIT EMR-Jordan Encounters Encounter Location Date Provider Diagnosis [facility] [address] [place] [address] 01/15/2024 Provider Migration Plan Of Treatment No Information Progress Notes * MAYRA SPRINGOB: 7 (39 yo F)Acc No.[id number]:01/15/2024 Patient: Jesus ART MCFARLAND :1985 A ge:38 Y S ex:Female Address:[address], [place], [address] Subjective: * Chief Complaints: * E MR-Jordan * * Date:
--- OUTSIDE RECORDS SUMMARY | 2024-01-16 04:00 | XMS_ITS ---
Author Organization [facility] Address [address] [place] [address] Care Team Providers Care Electric Power Machine Operator Name Role Phone Migration, Provider Unavailable Unavailable REASON FOR VISIT EMR-Jordan Encounters Encounter Location Date Provider Diagnosis [facility] [address] [place] [address] 01/16/2024 Provider Migration Plan Of Treatment No Information Progress Notes * MAYRA SPRINGOB: 7 (39 yo F)Acc No.[id number]:01/16/2024 Patient: Jesus ART MCFARLAND :1985 A ge:38 Y S ex:Female Address:[address], [place], [address] Subjective: * Chief Complaints: * E MR-Jordan * * Date:
[2025-03-28 08:35] VITALS: BP 120/74; PULSE 92; O2SAT 97; BMI 41.2
--- NOTE | 2025-03-28 08:35 | A.OFFVIS_ITS ---
Vital Signs 03/28/25 08:35 Height 5 ft 7 in Weight 263 lb BMI 41.2 BP 120/74 Blood Pressure Location Lt brachial Position Sitting Pulse 92 Pulse Source Pulse Oximeter Pulse Oximetry (%) 97 Oxygen Delivery Method Room Air Intake Visit Reasons: [employer]: Sleep apnea, Hypersomnia Intake Note: Patient presents [employer] JAGDISH. Patient notes loud snoring and her partner nodes apneic events sleeping. Awakens feeling rested and she feels tired throughout her day. Goes to bed at 11pm wakes up at 7am. Wakes up 5-6times a night. No naps/headaches. No history of sleep studies. Nightmares- concept of dream are the same but different. Accompanied by: Self / Same As Patient Allergies No Known Allergies Allergy (Verified 03/28/25 08:38) HPI Comments Details: 39 year old female is referred by her pcp for an evaluation of JAGDISH. She has sleep difficulties since childhood, with loud snoring gasping for air, multiple times a night with night bhakta. In 2014 she started seeing a psychiatrist and was diagnosed with depression with anxiety was started on paroxetine, trazadone and venlafaxine. She goes to sleep at 11pm with trazadone 150mg at night and wakes up around 6:15 to 7am, she is slow to wake up in the morning. She denies morning heads, clenches her jaw and has broken her teeth due to clenching in the past. She has acid reflux which causes her to wake up multiple times at night. She complaints of RLS symptoms with an uncomfortable sensation and urge to move her legs constantly, due to a sensation of anxiety in her chest and panic attacks in the past. Mood is stable. Her working memory is poor she has ADHD, very forgetful of recent conversations, misplaces items and uses short hacks to remind herself of where things are with alarms in her phone. Loses focus, and has poor concentration. Diet is stable, she has celiacs and avoids gluten, caffeine, fast foods, sugars, will increase protein. She denies smoking MJ, and drinks alcohol socially 1-2 drinks. [facility] Medical History Ankle fracture, left Abnormal endoscopy of upper gastrointestinal tract Adult celiac disease Psoriatic arthritis Psoriasis Asthma Surgical History Hx of bilateral salpingectomy Family History Mother Substance abuse FH: mental illness Social History Housing: House Patient Tobacco Use Status: Never used Tobacco e-Cigarette/Vaping Use: Never Used Second Hand Smoke Exposure: No Substance Use Type: Marijuana service: No Current occupational status: employed Current occupation: [employer] Current occupational exposures/hazards: No Cognitive needs: No Hearing needs: No Vision needs: Yes Physical Exam Vital Signs: Last Vital Signs Pulse 92 03/28/25 08:35 BP 120/74 03/28/25 08:35 Pulse Ox 97 03/28/25 08:35 Oxygen Delivery Method Room Air 03/28/25 08:35 BMI result Body Mass Index 41.2 Const General: cooperative, comfortable and no acute distress Nutritional Appearance: obese Orientation/consciousness: patient oriented x3 HEENT Face and sinus: Yes face symmetric Teeth and gingiva: other (mallampti score is 2) Neck Other: pain on extension Neck: Yes full ROM Resp Effort & Inspection: normal respiratory effort and able to speak in complete sentences Neuro General: patient oriented x3 Cranial nerves: Yes Normal facial strength present, Yes Midline tongue present, Yes Ability to bilaterally rotate head present and Yes Ability to bilaterally elevate shoulders present Cognition (Neuro): normal cognition Gait exam (Neuro): Normal gait present Motor exam (neuro): 5/5 motor strength present throughout and Normal motor muscle tone present throughout Psych Appearance: grossly normal Thought process: Normal thought process present Insight: Good insight present (Psych) Assessment & Plan Assessment & Plan (1) Excessive daytime sleepiness: Code(s): G47.19 - Other hypersomnia Category: Medical (2) Loud snoring: Code(s): R06.83 - Snoring Category: Medical (3) Seizure-like activity: Code(s): R56.9 - Unspecified convulsions Category: Medical (4) Elevated TSH: Code(s): R79.89 - Other specified abnormal findings of blood chemistry Category: Medical Plan EEG / r/o seizure like drop attacks- per pt. HST r/o JAGDISH - TSH is elevated though free t4 is low normal. Labs reviewed with pt today will r/o anemias, deficiencies. TSH is elevated though free t4 is low normal. Orders: Orders Ferritin Today D64.9 - Anemia, unspecified, R79.89 - Other specified abnormal findings of blood chemistry Homocysteine Today D64.9 - Anemia, unspecified, G47.9 - Sleep disorder, unspecified, R53.83 - Other fatigue, R79.89 - Other specified abnormal findings of blood chemistry Methylmalonic Acid Today D64.9 - Anemia, unspecified, G47.9 - Sleep disorder, unspecified, R53.83 - Other fatigue, R79.89 - Other specified abnormal findings of blood chemistry Vitamin D 25-OH Total Today D64.9 - Anemia, unspecified, R79.89 - Other specified abnormal findings of blood chemistry RT home sleep study Today G47.19 - Other hypersomnia EEG Routine Today R56.9 - Unspecified convulsions Vitamin B12 and Folate Today D64.9 - Anemia, unspecified, R79.89 - Other specified abnormal findings of blood chemistry TSH reflex Free T4 Today D64.9 - Anemia, unspecified, R79.89 - Other specified abnormal findings of blood chemistry Patient Instructions: Please complete the following fasting labs to rule out deficiencies. CBC/CMP/ B12/ Vit D/ TSH/ Homocysteine and MMA/ Ferritin. Sleep Hygiene provided: set a scheduled bedtime and wake time to help regulate the circadian rhythm and balance the release of pituitary hormones. Sleep in a dark room, temperatures below 68 degrees, and no devices n bed. Limit caffei nated products 6 hours prior to bed, and limit fluids 2-4 hours prior to bed. Gentle night yoga, diffusing essential oils, and playing soft music can be relaxing. Continue PT for neck and shoulders and knee joints. Continue Therapy for ptsd symptoms due to past h/o trauma. Coding Level of Care Code New Pt Level 4 (47941) Diagnoses Excessive daytime sleepiness G47.19 Loud snoring R06.83 Seizure-like activity R56.9 Elevated TSH R79.89 Sleep Questionnaire Difficulty falling asleep: Yes Difficulty staying asleep?: Yes Number of arousals: >4 improved w/ trazadone Snoring: Yes Witnessed apneas: Yes Gasping arousals: Yes Nocturia: No GERD: Yes Vivid dreams: Yes Acting out dreams: No Abnormal behavior in sleep: No Abnormal movements in sleep: Yes Morning headaches: No Excessive daytime sleepiness: Yes Daytime naps: No Restless legs: Yes Hallucinations: No Sleep paralysis: Yes Drop attacks: Yes Sleep Study: No CPAP: No
--- OUTSIDE RECORDS SUMMARY | 2025-03-28 08:46 | XMS_ITS | Patient Health Record ---
Author Organization [facility] Address [address] [place] [address] Support Name Relationship Address Phone [employer] [place] Guarantor Unknown [phone] Reason For Referral No Information Plan Of Treatment No Information Insurance Providers Payer Name Payer Address Payer Phone Subscriber Number Group Number Insured Name Patient Relationship to Insured Coverage Start Date Coverage End Date [facility] [address] [address] [place], [place] [id number] [employer] [place] Self - patient is the insured 2
--- OUTSIDE RECORDS SUMMARY | 2025-03-28 08:46 | XMS_ITS | Patient Health Record ---
Author Organization [facility] Address [address] [facility] [place] [address] Care Team Providers Care Television Script Writer Name Role Phone MARIA E MARTÍNEZ Unavailable [phone] Allergies Allergen (clinical drug ingredient) Drug/Non Drug Allergy documented on EMR Reaction Allergy Type Onset Date Status Cat dander Cat Dander Unknown Allergy Active Dust Mites Unknown Allergy Active Results Component Value Reference Range Flag Notes HCV Antibody-[id number] Reviewed date:08/11/2024 11:04:34 AM Interpretation:Negative Performing Lab:[facility] [place], [address], [address], [employer], Phone - [phone], Director - [facility] Notes/Report: Clinical Information:SRC:urine Hep C Virus Ab Non Reactive Non Reactive HCV antibody alone does not differentiate between previously resolved infection and active infection. Equivocal and Reactive HCV antibody results should be followed up with an HCV RNA test to support the diagnosis of active HCV infection. Ct/GC ARIEL, Pharyngeal-[id number] Reviewed date:08/11/2024 11:49:39 AM Interpretation:Negative Performing Lab:[facility] [place], [address], [address], [employer] [place], Phone - [phone], Director - [facility] Notes/Report: Clinical Information:SRC:urine C. trachomatis, ARIEL, Pharyn Negative Negative N. gonorrhoeae, ARIEL, Pharyn Negative Negative Ct, Ng, Trich vag by ARIEL-[id number] Reviewed date:08/11/2024 11:49:48 AM Interpretation:Negative Performing Lab:[facility] [place], [address], [address], [employer], Phone - [phone], Director - [facility] Notes/Report: Clinical Information:SRC:urine Chlamydia by ARIEL Negative Negative Gonococcus by ARIEL Negative Negative Trich vag by ARIEL Negative Negative HIV Ab/p24 Ag with Reflex-[id number] Reviewed date:08/11/2024 11:04:50 AM Interpretation:Negative Performing Lab:[facility] [place], [address], [address], [employer], Phone - [phone], Director - [facility] Notes/Report: Clinical Information:SRC:urine HIV Ab/p24 Ag Screen Non Reactive Non Reactive HIV-1/HIV-2 antibodies and HIV-1 p24 antigen were NOT detected. There is no laboratory evidence of HIV infection. HIV Negative T pallidum Screening [place] -[id number] Reviewed date:08/11/2024 11:04:57 AM Interpretation:Negative Performing Lab:[facility] [place], [address], [address], [employer], Phone - [phone], Director - [facility] Notes/Report: Clinical Information:SRC:urine T pallidum Antibodies Non Reactive Non Reactive Hepatitis B Surf Ab Quant-[id number] Reviewed date:08/10/2024 12:13:49 PM Interpretation:Not Immune Performing Lab:[facility] [place], [address], [address], [employer], Phone - [phone], Director - [facility] Notes/Report: Clinical Information:SRC:urine Hepatitis B Surf Ab Quant 8.4 Immunity>10 mIU/mL L Status of Immunity Anti-HBs Level Inconsistent with Immunity 0.0 - 10.0 Consistent with Immunity >10.0 HBsAg Screen-[id number] Reviewed date:08/11/2024 11:04:41 AM Interpretation:Negative Performing Lab:[facility] [place], [address], [address], [employer], Phone - [phone], Director - [facility] Notes/Report: Clinical Information:SRC:urine HBsAg Screen Negative Negative [...] Number of assigned female at partners 1 senior care partner Your sexual activities include: oral intercourse, [...] bw Encounters Encounter Location Date Provider Diagnosis [facility] [facility] [address] [place] [phone] 08/09/2024 MARIA E TANYA Encounter for scre [...] Insured Coverage Start Date Coverage End Date [facility] [employer] [address] [address] [place], [place] [id number] Andreina Munguia Self - patient is the insured Medications Administered Medication Instructions Date of Administration Dosage Notes Depo 150mg 02/12/2023 Depo 150mg 05/10/2023 Depo 150mg 08/06/2023 Medical (General) History Medical History History ICD Code Weight concerns PTSD Psoriatic arthritis, joint pain ADHD Functional autism Surgical History Surgery Date(Month/Year) 2024 broken leg
--- OUTSIDE RECORDS SUMMARY | 2025-03-28 08:46 | XMS_ITS | Clinical Summary ---
Author Organization [facility] Address [address] [facility] [address] [place] [address] Phone Care Team Providers Care Switch Box Installer Name Role Phone Saurav Mendoza MD Primary [...] will change her mind. Case request submitted. [facility] sterilization form signed. ADHD 01/28/2024 Celiac disease 01/28/2024 Psoriasis 01/28/2024 Psoriatic arthritis 01/28/2024 PTSD (post-traumatic stress disorder) 01/28/2024 Immunizations Immunization Administration Dates Next Due Influenza [...] 2021 INFLUENZA VACCINE (#1) 2024 , 02/04/2023 COVID-19 VACCINE (2024-2 6 season) 2025 05/10/2024, 03/29/2023 Adult Td,Tdap Booster 08/18/2034 08/18/2024 SMOKING STATUS SCREENING (On ce After 26 [...] this topic Medical Devices Not on file [facility] P[facility] [employer] NON NSPG PCP SIL[employer]CTORC[employer] WELLS[employer] NON NSPG PCP SILVER CLARITY CONNECTORCARE WELLSENSE NON NSPG PCP SILVER CLARITY CONNECTORCARE EMIGRANT GAPENSE NON NSPG PCP SILVER [employer]ARITY CONNECTORCARE ROBB NON NSPG PCP SIL[employer] CONNECTORCARE Advance Directives For more information, please contact: [phone] (9AM - 5PM [facility], Wednesday-Wednesday) * Full Code (Latest Code Status on File) Date Activated Date Inactivated Comments 12/14/2024 9:33 AM Question Answer Comments Code Status Confirmed With: Patient Care Teams Switch Box Installer Relationship Specialty Start Date End Date Saurav Mendoza MD PCP - General Family Medicine 09/14/24 Additional Source Comments The information contained in this document represents components of the legal health record. It is not the complete legal health record.[facility]
--- OUTSIDE RECORDS SUMMARY | 2025-03-28 08:46 | XMS_ITS | Encounter Summary ---
Author Organization [facility] Address [address] [facility] [address] [place] [address] Phone Care Team Providers Care Insole Stiffener Name Role Phone Saurav Mendoza MD Primary Care Provider Encounter Details Date Type Department Care Team (Late st Contact Info) Description 12/14/2024 Procedure Pass OR Admitting Dept - Virtual Department [address] [place] [address] Social History Tobacco Use Types Packs/Day Years [...] on filedocumented in this encounter Care Teams Insole Stiffener Relationship Specialty Start Date End Date Saurav Mendoza MD PCP - General Family Medicine 09/14/24 documented as of this encounter Additional Source Comments The information contained in this document represents components of the legal health record. It is not the complete legal health record.[facility]
== END 2025-03-28 09:34 | disposition home or self-care (01) ==
LOC: HO.HSMC 08:33
PROVIDERS: PCP Family Medicine; Visit Provider Physician Assistant Medical
DX: G47.19 Other hypersomnia (principal); R06.83 Snoring; R56.9 Unspecified convulsions; R79.89 Other specified abnormal findings of blood chemistry
CPT/HCPCS: 99204

== ENCOUNTER → 2025-03-28 08:32 | Outpatient (BNVA) | payer OTHER, SELFPAY | PROVIDERS: PCP Family Medicine; Visit Provider Physician Assistant Medical | DX: R06.83 Snoring (principal); G47.19 Other hypersomnia | CPT/HCPCS: 99202 ==

== ENCOUNTER 2025-04-12 08:42 | Outpatient (REF) | payer OTHER, SELFPAY ==
[2025-04-12 10:11] LABS: Alanine Aminotransferase 12 U/L (0-31); Albumin Level 4.2 g/dL (3.5-5.0); Alkaline Phosphatase 81 U/L (39-117); Anion Gap 12 (12-20); Aspartate Amino Transferase 22 U/L (5-31); Blood Urea Nitrogen 15 mg/dL (9-16); Calcium 9.0 mg/dL (8.4-10.2); Carbon Dioxide 26 mmol/L (22-29); Chloride 107 mmol/L (96-108); Cholesterol 194 mg/dL (<200); Estimated Glomerular Filt Rate > 60; HDL Cholesterol 49 mg/dL (>40); Potassium 3.8 mmol/L (3.3-5.1); Sodium 141 mmol/L (135-145); Total Protein 7.2 g/dL (6.5-8.0); Triglycerides 118 mg/dL (<150)
[2025-04-12 10:24] LABS: Free T4 (Free Thyroxine) 0.84 ng/dL (0.71-1.85)
[2025-04-12 10:32] LABS: Ferritin 30 ng/mL (10-122); Thyroid Stimulating Hormone 3.45 uIU/mL (0.32-4.0)
[2025-04-12 10:35] LABS: Folate 4.1 ng/mL (> or = 4.0); Vitamin B12 274 pg/mL (200-900)
== END 2025-04-12 08:43 | disposition home or self-care (01) ==
LOC: HO.LAB 08:42
PROVIDERS: Absent Provider Family Medicine; PCP Family Medicine; Visit Provider Physician Assistant Medical
DX: Z00.00 Encounter for general adult medical examination without abnormal findings (principal); G47.9 Sleep disorder, unspecified; E03.9 Hypothyroidism, unspecified; D64.9 Anemia, unspecified; R79.89 Other specified abnormal findings of blood chemistry; R53.83 Other fatigue
CPT/HCPCS: 36415; 80053; 80061; 82306; 82607; 82728; 82746; 83090; 83921; 84439; 84443; 84480

== ENCOUNTER 2025-04-18 09:31 | Outpatient (AMB) | payer OTHER, SELFPAY ==
--- OUTSIDE RECORDS SUMMARY | 2023-11-03 05:30 | XMS_ITS ---
Author Organization [facility] Address [address] [place] [address] Care Team Providers Care Electrical Timing Device Calibrator Name Role Phone MARIA E MARTÍNEZ Unavailable [phone] REASON FOR VISIT Depo Social History Sex Assigned At : Social History Observation Description Sex Assigned At Female Encounters Encounter Location Date Provider Diagnosis [facility] [address] [place], [place] [id number] 04/2024 MARIA E MARTÍNEZ Plan Of Treatment No Information Progress Notes * Andreina MUNGUIA EDOB: [birth year] (39 yo F)Acc No.[id number]:11/03/2023 Progress Notes Patient: Jesus quevedoAndreina kim Jeromy Provider: Liz MARTÍNEZ :1985 A ge:38 Y S ex:Female Date:11/03/2023 Address:[address] [place], [place] [id number] Subjective: * Chief Complaints: * D epo Billing Information: * Procedure Codes: * Electronic signature of KENYA MARTÍNEZ CNM on 04/18/2025 at 10:41 AM EST Sign off status: Pending * Provider: Liz MARTÍNEZ Date: 0 11/03/2023 Generated for Eliu kim/Fuad/Areliitting on: 06/18/2024 10:41 AM EST
--- OUTSIDE RECORDS SUMMARY | 2024-01-15 04:00 | XMS_ITS ---
Author Organization [facility] Address [address] [place] [address] Care Team Providers Care Fiscal Officer Name Role Phone Migration, Provider Unavailable Unavailable REASON FOR VISIT EMR-Jordan Encounters Encounter Location Date Provider Diagnosis [facility] [address] [place] [address] 01/15/2024 Provider Migration Plan Of Treatment No Information Progress Notes * MAYRA SPRINGOB: 7 (39 yo F)Acc No.[id number]:01/15/2024 Patient: Jesus ART MCFARLAND :1985 A ge:38 Y S ex:Female Address:[address], [place], [address] Subjective: * Chief Complaints: * E MR-Jordan * * Date:
--- OUTSIDE RECORDS SUMMARY | 2024-01-16 04:00 | XMS_ITS ---
Author Organization [facility] Address [address] [place] [address] Care Team Providers Care Buhr Dresser Name Role Phone Migration, Provider Unavailable Unavailable REASON FOR VISIT EMR-Jordan Encounters Encounter Location Date Provider Diagnosis [facility] [address] [place] [address] 01/16/2024 Provider Migration Plan Of Treatment No Information Progress Notes * MAYRA SPRINGOB: 7 (39 yo F)Acc No.[id number]:01/16/2024 Patient: Jesus ART MCFARLAND :1985 A ge:38 Y S ex:Female Address:[address], [place], [address] Subjective: * Chief Complaints: * E MR-Jordan * * Date:
--- NOTE | 2025-04-18 09:37 | A.OFFPC_ITS ---
Vital Signs 04/18/25 09:41 Height 5 ft 7 in Weight 258 lb 2 oz BMI 40.4 BP 118/78 Blood Pressure Location Rt brachial Position Sitting Respiration 16 Pulse 101 H Pulse Source Pulse Oximeter Temp 97.4 F Temp Source Temporal Artery Scan Pulse Oximetry (%) 97 Oxygen Delivery Method Room Air Intake Visit Reasons: f/u HLD Intake Note: Andreina presents in the office today for a follow up to her cholesterol. Allergies No Known Allergies Allergy (Verified 04/18/25 09:39) Medication List - Last Reconciled 04/18/25 by Saurav Mendoza MD albuterol sulfate 90 mcg/actuation 1 inh inhalation ONCE apremilast (Otezla) 30 mg PO BID budesonide-formoterol 160-4.5 mcg/actuation (Symbicort) 1 inh inhalation BID 30 days calcipotriene 0.005% 1 appl topical BID methylphenidate HCl ER 72 mg PO DAILY trazodone 150 mg PO DAILY triamcinolone acetonide 0.1% 1 appl topical BID venlafaxine 150 mg PO DAILY Tobacco use date assessed: 04/18/25 Dental Screening Dental Screen Date: 04/18/25 Did you have a dental visit in the last 12 months?: No Did you have a dental problem in the last 6 months where you did not have access to dental care?: No Was dental information given to patient?: Patient declined HPI f/u HLD HPI Details 39 y/o female presents to f/u lipids, TS H level. Labs drawn 04/12/25. Reviewed labs with pt. Triglycerides 118. TC 4. LDL 122. HDL 49. Vitamin D low at 21.0 ng/mL. TSH 3.45 uIU/mL. Has lost about 9-10 lbs in the last two months. BMI today 40.4. Has an appt. with sleep medicine in June. HPI Comments History of Present Illness Details Documentation assistance for Saurav Mendoza MD, was provided by Mesfin Quevedo, Leather Sprayer on 04/18/2025 at 9:47 AM CARLIE. Jie, Dr. Mendoza, have read, observed, and verified documentation. [facility] Medical History Ankle fracture, left Abnormal endoscopy of upper gastrointestinal tract Adult celiac disease Psoriatic arthritis Psoriasis Asthma Surgical History Hx of bilateral salpingectomy Family History Mother Substance abuse FH: mental illness Social History (Updated 04/18/25 @ 09:41 by Kasey Johnson CMA) Housing: House Alcohol intake: current Alcohol intake frequency: holidays/special occasions only Patient Tobacco Use Status: Never used Tobacco e-Cigarette/Vaping Use: Never Used Second Hand Smoke Exposure: No Substance Use Type: Marijuana service: No Current occupational status: employed Current occupation: [employer] Current occupational exposures/hazards: No Cognitive needs: No Hearing needs: No Vision needs: Yes Questionnaire Thrive Questionnaire Date Thrive assessed: 06/02/24 I am a: Patient What is your living situation today?: I have a steady place to live Within the past 12 months, did the food you bought not last and you didn't have the money to get more?: Sometimes True Within the past 12 months, did you worry whether your food would run out before you got money to buy more?: Sometimes True Do you have trouble paying for medicines?: No Do you have trouble getting transportation to medical appointments?: Yes Do you have trouble paying your heating and electricity bill?: No Do you have trouble taking care of your child, family member or friend?: No Do you have trouble with day-to-day activities such as bathing, preparing meals, shopping, managing finances, etc.?: Yes Are you currently unemployed and looking for a job?: No Are you interested in more education?: No Please select the resources that you would like help with: None Currently or been in a relationship where the following occur: No concerns reported THRIVE Score: 3 MICHAEL-7 AMB Questionnaire MICHAEL-7 Date MICHAEL - 7 assessed: 08/18/24 Source: Developed by Drs. John Danielson, Anita Maria, German Alvarez and colleagues, with an educational vic from [employer] Review of Systems Const Denies chills, Denies fatigue, Denies fever(s), Denies headache(s) and Denies weakness ENT Denies dizziness and Denies headache(s) Card Denies dyspnea Resp Denies cough, Denies dyspnea, Denies wheezing and Denies other (shortness of breath) Musc Denies numbness and Denies tingling Neuro Denies dizziness, Denies headache(s), Denies numbness, Denies tingling and Denies weakness Psych Denies anxiety and Denies depression Endo Denies fatigue Aller/Immun Denies wheezing Physical exam (Primary Care) Vital Signs: Last Vital Signs Temp 97.4 F 04/18/25 09:41 Pulse 101 H 04/18/25 09:41 Resp 16 04/18/25 09:41 BP 118/78 04/18/25 09:41 Pulse Ox 97 04/18/25 09:41 Oxygen Delivery Method Room Air 04/18/25 09:41 BMI result Body Mass Index 40.4 Tobacco/Smoking Status: Tobacco use Status Tobacco use date assessed 04/18/25 04/18/25 09:43 Patient Tobacco Use Status Never used Tobacco 04/18/25 09:41 e-Cigarette/Vaping Use Never Used 04/18/25 09:41 Thrive Assessment: Date of Thrive Assessment Date Thrive assessed 06/02/24 04/18/25 09:38 Currently or been in a relationship where the following occur: No concerns reported Const General: well developed; No acute distress Nutritional Appearance: well nourished Orientation/consciousness: patient oriented x3 HENMT Head: Yes normocephalic and Yes atraumatic Eyes General: appearance normal, both eyes and all related structures Pupils: Equal, round and reactive pupils present EOM: EOMs intact bilaterally Resp Effort & Inspection: normal respiratory effort Auscultation: clear to auscultation bilaterally Cardio Rate: regular rate Rhythm: regular rhythm Heart sounds: S1 normal heart sound present, S2 normal heart sound present, no gallops, no murmurs and no rubs Neuro General: patient oriented x3 and gait normal Cranial nerves: Yes Equal, round and reactive pupils present Psych Affect: normal affect Coding Level of Care Code Est Pt Level 5 (49234) Diagnoses Elevated LDL cholesterol level E78.00 Elevated TSH R79.89 Morbid obesity E66.01 Sleep apnea G47.30 Low vitamin D level R79.89 Gastroesophageal reflux disease without esophagitis K21.9 Esophagitis presence: without esophagitis Assessment & Plan Assessment & Plan (1) Elevated LDL cholesterol level: Code(s): E78.00 - Pure hypercholesterolemia, unspecified Category: Medical Plan: LDL cholesterol remains elevated despite lifestyle changes Start atorvastatin 10 mg daily Will recheck lipids at next visit Encouraged ongoing lifestyle changes including diet exercise weight loss and reducing saturated fats and cholesterol (2) Elevated TSH: Code(s): R79.89 - Other specified abnormal findings of blood chemistry Category: Medical Plan: Patient had had mildly elevated TSH level Repeat lab work shows that this has resolved (3) Morbid obesity: Code(s): E66.01 - Morbid (severe) obesity due to excess calories Category: Medical Plan: Patient is interested in a referral to nutrition - ordered Also encouraged ongoing weight loss (4) Sleep apnea: Code(s): G47.30 - Sleep apnea, unspecified Category: Medical Plan: Patient has appointment with sleep medicine in June (5) Low vitamin D level: Code(s): R79.89 - Other specified abnormal findings of blood chemistry Category: Medical Plan: Vitamin-D is low Will send script vitamin D3 (6) GERD (gastroesophageal reflux disease): Code(s): K21.9 - Gastro-esophageal reflux disease without esophagitis Category: Medical Qualifiers: Esophagitis presence: without esophagitis Qualified Code(s): K21.9 - Gastro-esophageal reflux disease without esophagitis Plan: Patient has ongoing GERD symptoms intermittently She can omeprazole famotidine. Advised strategy of anticipation If she is still having significant symptoms, will re-evaluate and refer to Gastroenterology Orders: Orders Lipid Panel 04/18/25 E78.00 - Pure hypercholesterolemia, unspecified, Z00.00 - Encounter for general adult medical examination without abnormal findings Comprehensive [place]. Panel Fast 04/18/25 E78.00 - Pure hypercholesterolemia, unspecified, Z00.00 - Encounter for general adult medical examination without abnormal findings Referrals Nutrition/Dietitian Referral E66.01 - Morbid (severe) obesity due to excess calories, E78.00 - Pure hypercholesterolemia, unspecified Medications: New atorvastatin (Lipitor) 10 mg PO BEDTIME 90 tabs 3RF 90 days cholecalciferol (vitamin D3) 50 mcg PO DAILY 90 caps 2RF 90 days
[2025-04-18 09:41] VITALS: BP 118/78; PULSE 101; RESP 16; TEMP 36.3; O2SAT 97; BMI 40.4
--- OUTSIDE RECORDS SUMMARY | 2025-04-18 10:41 | XMS_ITS | Patient Health Record ---
Author Organization [facility] Address [address] [place] [address] Support Name Relationship Address Phone ART [employer] Guarantor Unknown [phone] Reason For Referral No Information Plan Of Treatment No Information Insurance Providers Payer Name Payer Address Payer Phone Subscriber Number Group Number Insured Name Patient Relationship to Insured Coverage Start Date Coverage End Date [facility] [address] [address] [place], [place] [id number] ART [employer] Self - patient is the insured 2
--- OUTSIDE RECORDS SUMMARY | 2025-04-18 10:41 | XMS_ITS | Patient Health Record ---
Author Organization [facility] Address [address] [facility] [place] [address] Care Team Providers Care Accounts Executive Name Role Phone MARIA E MARTÍNEZ Unavailable [phone] Allergies Allergen (clinical drug ingredient) Drug/Non Drug Allergy documented on EMR Reaction Allergy Type Onset Date Status Cat dander Cat Dander Unknown Allergy Active Dust Mites Unknown Allergy Active Results Component Value Reference Range Flag Notes HCV Antibody-[id number] Reviewed date:08/11/2024 11:04:34 AM Interpretation:Negative Performing Lab:[facility] [place], [address], [address], [place], Phone - [phone], Director - [facility] Notes/Report: Clinical Information:SRC:urine Hep C Virus Ab Non Reactive Non Reactive HCV antibody alone does not differentiate between previously resolved infection and active infection. Equivocal and Reactive HCV antibody results should be followed up with an HCV RNA test to support the diagnosis of active HCV infection. Ct/GC ARIEL, Pharyngeal-[id number] Reviewed date:08/11/2024 11:49:39 AM Interpretation:Negative Performing Lab:[facility] [place], [address], [address], [place], Phone - [phone], Director - [facility] Notes/Report: Clinical Information:SRC:urine C. trachomatis, ARIEL, Pharyn Negative Negative N. gonorrhoeae, ARIEL, Pharyn Negative Negative Ct, Ng, Trich vag by ARIEL-[id number] Reviewed date:08/11/2024 11:49:48 AM Interpretation:Negative Performing Lab:[facility] [place], [address], [address], [place], Phone - [phone], Director - [facility] Notes/Report: Clinical Information:SRC:urine Chlamydia by ARIEL Negative Negative Gonococcus by ARIEL Negative Negative Trich vag by ARIEL Negative Negative HIV Ab/p24 Ag with Reflex-[id number] Reviewed date:08/11/2024 11:04:50 AM Interpretation:Negative Performing Lab:[facility] [place], [address], [address], [place], Phone - [phone], Director - [facility] Notes/Report: Clinical Information:SRC:urine HIV Ab/p24 Ag Screen Non Reactive Non Reactive HIV-1/HIV-2 antibodies and HIV-1 p24 antigen were NOT detected. There is no laboratory evidence of HIV infection. HIV Negative T pallidum Screening [place] -[id number] Reviewed date:08/11/2024 11:04:57 AM Interpretation:Negative Performing Lab:[facility] [place], [address], [address], [place], Phone - [phone], Director - [facility] Notes/Report: Clinical Information:SRC:urine T pallidum Antibodies Non Reactive Non Reactive Hepatitis B Surf Ab Quant-[id number] Reviewed date:08/10/2024 12:13:49 PM Interpretation:Not Immune Performing Lab:[facility] [place], [address], [address], [place], Phone - [phone], Director - [facility] Notes/Report: Clinical Information:SRC:urine Hepatitis B Surf Ab Quant 8.4 Immunity>10 mIU/mL L Status of Immunity Anti-HBs Level Inconsistent with Immunity 0.0 - 10.0 Consistent with Immunity >10.0 HBsAg Screen-[id number] Reviewed date:08/11/2024 11:04:41 AM Interpretation:Negative Performing Lab:[facility] [place], [address], [address], [place], Phone - [phone], Director [facility] Notes/Report: Clinical Information:SRC:urine HBsAg Screen Negative Negative [...] Number of assigned female at partners 1 marine consultant partner Your sexual activities include: oral intercourse, [...] bw Encounters Encounter Location Date Provider Diagnosis [place] [facility] [address] [place], [place] [id number] 08/09/2024 MARIA E TANYA Encounter for scre [...] Insured Coverage Start Date Coverage End Date [facility] [address] [address] [place], [place] [id number] Andreina Munguia Self - patient is the insured Medications Administered Medication Instructions Date of Administration Dosage Notes Depo 150mg 02/12/2023 Depo 150mg 05/10/2023 Depo 150mg 08/06/2023 Medical (General) History Medical History History ICD Code Weight concerns PTSD Psoriatic arthritis, joint pain ADHD Functional autism Surgical History Surgery Date(Month/Year) 2024 broken leg
--- OUTSIDE RECORDS SUMMARY | 2025-04-18 10:41 | XMS_ITS | Encounter Summary ---
Author Organization [facility] Address [address] [place] [address] Phone Care Team Providers Care Named Account Executive Name Role Phone Saurav Mendoza MD Primary Care Provider Encounter Details Date Type Department Care Team (Late st Contact Info) Description 12/14/2024 Procedure Pass OR Admitting Dept - Virtual Department [address] [place] [address] Social History Tobacco Use Types Packs/Day Years [...] on filedocumented in this encounter Care Teams Named Account Executive Relationship Specialty Start Date End Date Saurav Mendoza MD PCP - General Family Medicine 09/14/24 documented as of this encounter Additional Source Comments The information contained in this document represents components of the legal health record. It is not the complete legal health record.[facility]
--- OUTSIDE RECORDS SUMMARY | 2025-04-18 10:41 | XMS_ITS | Clinical Summary ---
Author Organization [facility] Address [address] [place] [address] Phone Care Team Providers Care Integrated Marketing Intern Name Role Phone Saurav Mendoza MD Primary [...] topic Medical Devices Not on file [facility] PCP SILVER CL[place]ITY CONNE[place] NON NSPG PCP SILVER CLARITY CONNECTORCARE [place] NON NSPG PCP SILVER CLARITY CONNECTORCARE [place] NON NSPG PCP SILVER CL[place]ITY CONNE[place]CARE [place] NON NSPG PCP SILVER CLARITY CONNECTORCARE [place] NON NSPG PCP SILVER CLARITY CONNECTORCARE Advance Directives For more information, please contact: [phone] (9AM - 5PM [facility], Wednesday-Wednesday) * Full Code (Latest Code Status on File) Date Activated Date Inactivated Comments 12/14/2024 9:33 AM Question Answer Comments Code Status Confirmed With: Patient Care Teams Integrated Marketing Intern Relationship Specialty Start Date End Date Saurav Mendoza MD PCP - General Family Medicine 09/14/24 Additional Source Comments The information contained in this document represents components of the legal health record. It is not the complete legal health record.[facility]
== END 2025-04-18 10:03 | disposition home or self-care (01) ==
LOC: HO.HMCFM 09:31
PROVIDERS: PCP Family Medicine; Visit Provider Family Medicine
DX: E78.00 Pure hypercholesterolemia, unspecified (principal); R79.89 Other specified abnormal findings of blood chemistry; E66.01 Morbid (severe) obesity due to excess calories; Z68.41 Body mass index [BMI] 40.0-44.9, adult; G47.30 Sleep apnea, unspecified; K21.9 Gastro-esophageal reflux disease without esophagitis

== ENCOUNTER → 2025-04-18 09:31 | Outpatient (BNVA) | payer OTHER, SELFPAY | PROVIDERS: PCP Family Medicine; Visit Provider Family Medicine | DX: E66.01 Morbid (severe) obesity due to excess calories (principal); E78.00 Pure hypercholesterolemia, unspecified; R79.89 Other specified abnormal findings of blood chemistry; G47.30 Sleep apnea, unspecified; Z68.41 Body mass index [BMI] 40.0-44.9, adult | CPT/HCPCS: 99212 ==

== ENCOUNTER 2025-04-23 10:50 | Outpatient (AMB) | payer OTHER, SELFPAY ==
[2025-04-23 10:57] VITALS: BMI 41.2
--- NOTE | 2025-04-23 10:57 | MHC.AMNUTRGE ---
VS Expanded 04/23/25 10:57 04/23/25 11:25 Height 5 ft 7 in 5 ft 7 in Weight 263 lb 263 lb BMI 41.2 41.2 Intake Visit Reasons: Morbid (severe) obesity due to excess calories Allergies No Known Allergies Allergy (Verified 04/18/25 09:39) Nutrition Presentation Details: Pt presents for MNT for excessive calories intake Pt has celiac disease, dx in 2012 Patient expresses interest in having a healthier relationship with food coffee 7-8 am egg sandw and cheese on GF bread or GF perfect bar or grits GF pizza , chicken mashed potato food frequency fruits: 0-1/d vegetables: fish: 0-1/wk dairy: 0-1/d Patient may have meal replacements BS Monitoring Most Recent Diabetes Results: Microalb/Creat Ratio, (<30) 6.2 ug/mg cr 02/16/25 Cholesterol, (<200) 194 mg/dL 04/12/25 HDL Cholesterol, (>40) 49 mg/dL 04/12/25 Triglycerides, (<150) 118 mg/dL 04/12/25 Creatinine, (0.5-1.4) 0.74 mg/dL 04/12/25 BUN, (9-16) 15 mg/dL 04/12/25 Sodium, (135-145) 141 mmol/L 04/12/25 Potassium, (3.3-5.1) 3.8 mmol/L 04/12/25 Chloride, (96-108) 107 mmol/L 04/12/25 Carbon Dioxide, (22-29) 26 mmol/L 04/12/25 Calcium, (8.4-10.2) 9.0 mg/dL 04/12/25 AST, (5-31) 22 U/L 04/12/25 ALT, (0-31) 12 U/L 04/12/25 Total Protein, (6.5-8.0) 7.2 g/dL 04/12/25 Albumin, (3.5-5.0) 4.2 g/dL 04/12/25 SBP-Bzaqoww-Oz.Jeor Equation Height: 5 ft 7 in Weight: 263 lb Resting Metabolic Rate: 1907.42 Calculated Activity Level: Sedentary Calories Needed to Maintain Weight: 2288.90 Diagnosis Nutrition problem #1: overweight/obesity As related to (etiology) #1: lack of nutrit education As evidenced by (sign/symptom) #1: high BMI PFSH Medical History Ankle fracture, left Abnormal endoscopy of upper gastrointestinal tract Adult celiac disease Psoriatic arthritis Psoriasis Asthma Surgical History Hx of bilateral salpingectomy Family History Mother Substance abuse FH: mental illness Social History (Updated 04/18/25 @ 09:41 by Kasey Johnson CMA) Housing: House Alcohol intake: current Alcohol intake frequency: holidays/special occasions only Patient Tobacco Use Status: Never used Tobacco e-Cigarette/Vaping Use: Never Used Second Hand Smoke Exposure: No Substance Use Type: Marijuana service: No Current occupational status: employed Current occupation: [employer] Current occupational exposures/hazards: No Cognitive needs: No Hearing needs: No Vision needs: Yes Assessment & Plan Assessment & Plan (1) Morbid obesity: Code(s): E66.01 - Morbid (severe) obesity due to excess calories Category: Medical Plan: current wt: 119 kg ( May 17 ) est kcal needs as per MSJ: 2400 est protein needs as per 1 g/kg BW: 120 est fluid needs as per 30 ml/kg BW: 3600 Recommended fiber > 12 g /day and gradually increase up to 25-28 g /day or as tolerated Nutrition topics discussed : Reviewed (R), Pt verbalized understanding (V) , not applicable (N/A) R, : Healthy Plate Method Concept: R, : Carbohydrates: food sources of carbohydrates, relationship of carbohydrates to blood glucose, fatty liver GI health. Recommended total amount of carbohydrates per meals and snack. Differences between simple carbohydrates and complex carbohydrates R, : Lean protein foods including vegan , vegetarian sources of protein. Benefits of protein (including but not limited to healing, nutritional value , benefits in weight loss, glucose control R, V, N/A: Fats : Source of fats, benefits of fats. Difference between saturated and unsaturated fats. Saturated fats and its contribution to inflammation R, V, N/A: Fiber: food sources and role of fiber in the diet (including but not limited to its role as a prebiotic, benefits in constipation, role in IBS , role in glucose control and cholesterol level) R, : Hydration: role of hydration and prevention of dehydration or over hydration. Foods and water content. R, V, N/A: Vitamins and Minerals in foods and supplements R, V, N/A: Interpreting food labels, including serving size, macronutrients, vitamins, minerals, allergens, ingredient list , % daily value Patient Instructions: Work on having 3 meals a day, keeping a consistent mealtime as best as possible Have fish twice a week , choose tuna fish sandwich on gluten free bread with lettuce tomato vegetables of choice as a lunch Work on following healthy plate method at dinner Coding Level of Care Code Nutr Indiv Intake (16648) Diagnoses Morbid obesity E66.01 Time Spent (min) 30
--- OUTSIDE RECORDS SUMMARY | 2025-04-23 13:56 | XMS_ITS | Encounter Summary ---
Author Organization [facility] Address [address] [place] [address] Phone Care Team Providers Care Bull Riveter Name Role Phone Saurav Mendoza MD Primary Care Provider Encounter Details Date Type Department Care Team (Late st Contact Info) Description 12/14/2024 Procedure Pass OR Admitting Dept - Virtual Department [address] [place] [address] Social History Tobacco Use Types Packs/Day Years [...] on filedocumented in this encounter Care Teams Bull Riveter Relationship Specialty Start Date End Date Saurav Mendoza MD PCP - General Family Medicine 09/14/24 documented as of this encounter Additional Source Comments The information contained in this document represents components of the legal health record. It is not the complete legal health record.[facility]
--- OUTSIDE RECORDS SUMMARY | 2025-04-23 13:56 | XMS_ITS | Clinical Summary ---
Author Organization [facility] Address [address] [place] [address] Phone Care Team Providers Care Commodities Manager Name Role Phone Saurav Mendoza MD [...] topic Medical Devices Not on file [facility]G PCP SILVER CLARITY CONNE[employer]CARE [place] NON NSPG PCP SILVER CLARITY CONNECTORCARE [place] NON NSPG PCP SILVER CLARITY CONNECTORCARE [place] NON NSPG PCP SILVER CLARITY CONNECTORCARE [place] NON NSPG PCP SILVER CLARITY CONNECTORCARE [place] NON NSPG PCP SILVER CLARITY CONNECTORCARE Advance Directives For more information, please contact: [phone] (9AM - 5PM [facility], Wednesday-Wednesday) * Full Code (Latest Code Status on File) Date Activated Date Inactivated Comments 12/14/2024 9:33 AM Question Answer Comments Code Status Confirmed With: Patient Care Teams Commodities Manager Relationship Specialty Start Date End Date Saurav Mendoza MD PCP - General Family Medicine 09/14/24 Additional Source Comments The information contained in this document represents components of the legal health record. It is not the complete legal health record.[facility]
[2025-04-24 13:41] VITALS: BMI 41.2
== END 2025-04-23 11:45 | disposition home or self-care (01) ==
LOC: HO.ENCR 10:51
PROVIDERS: PCP Family Medicine; Visit Provider Dietitian, Registered
DX: E66.01 Morbid (severe) obesity due to excess calories (principal)

== ENCOUNTER → 2025-04-23 10:50 | Outpatient (BNVA) | payer OTHER, SELFPAY | PROVIDERS: PCP Family Medicine; Visit Provider Dietitian, Registered | DX: E66.01 Morbid (severe) obesity due to excess calories (principal); Z68.41 Body mass index [BMI] 40.0-44.9, adult; Z71.3 Dietary counseling and surveillance | CPT/HCPCS: 97802 ==

== ENCOUNTER 2025-05-10 08:55 | Outpatient (AMB) | payer OTHER, SELFPAY ==
--- OUTSIDE RECORDS SUMMARY | 2024-01-15 04:00 | XMS_ITS ---
Author Organization [facility] Address [address] [place] [address] Care Team Providers Care Labor Relations Analyst Name Role Phone Migration, Provider Unavailable Unavailable REASON FOR VISIT EMR-Jordan Encounters Encounter Location Date Provider Diagnosis [facility] [address] [place] [address] 01/15/2024 Provider Migration Plan Of Treatment No Information Progress Notes * MAYRA SPRINGOB: 7 (39 yo F)Acc No.[id number]:01/15/2024 Patient: Jesus ART MCFARLAND :1985 A ge:38 Y S ex:Female Address:[address], [place], [address] Subjective: * Chief Complaints: * E MR-Jordan * * Date:
--- OUTSIDE RECORDS SUMMARY | 2024-01-16 04:00 | XMS_ITS ---
Author Organization [facility] Address [address] [place] [address] Care Team Providers Care Asbestos Handler Name Role Phone Migration, Provider Unavailable Unavailable REASON FOR VISIT EMR-Jordan Encounters Encounter Location Date Provider Diagnosis [facility] [address] [place] [address] 01/16/2024 Provider Migration Plan Of Treatment No Information Progress Notes * MAYRA SPRINGOB: 7 (39 yo F)Acc No.[id number]:01/16/2024 Patient: Jesus ART MCFARLAND :1985 A ge:38 Y S ex:Female Address:[address], [place], [address] Subjective: * Chief Complaints: * E MR-Jordan * * Date:
[2025-05-10 08:57] VITALS: BP 100/72; PULSE 102; O2SAT 98; BMI 40.7
--- NOTE | 2025-05-10 08:57 | A.OFFVIS_ITS ---
Vital Signs 05/10/25 08:57 Height 5 ft 7 in Weight 259 lb 14.8 oz BMI 40.7 BP 100/72 Blood Pressure Location Rt brachial Position Sitting Pulse 102 H Pulse Source Pulse Oximeter Pulse Oximetry (%) 98 Oxygen Delivery Method Room Air Intake Visit Reasons: discuss letter Intake Note: Patient presents today for Arthropathic psoriasis. Discuss letter. Accompanied by: Self / Same As Patient Allergies No Known Allergies Allergy (Verified 05/10/25 08:57) HPI HPI discuss letter: Details: Since Wednesday she has had increased pain in her lower back. Her physical therapist localized her pain to her SI joint. She used ibuprofen without benefit. Heat exacerbated pain. She has been alternating with heat and ice. She also received a massage on Wednesday. In the past when she used the TENs unit she had benefit. 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 She is unable to flexlumbar spine due to increased pain. Assessment & Plan Assessment & Plan (1) Psoriatic arthritis: Comment: I will monitor her clinically on Otezla to assess benefit in improving her ankle and foot pain and stiffness next visit, which was started in January by Dermatology for management of psoriasis. Rheumatology history: Diagnosed with psoriatic arthritis in childhood. She was in remission on Humira when she was on it for a year and a half up until 2021. Mainly involving ankle, feet with joint pain and stiffness and enthesitis with left trochanteric bursitis. Mild elevation in CRP and negative HLA B27. She has mild osteoarthritis affecting C-spine, L-spine and left 1st and 5th MTP. There is no radiographic changes related to axial inflammatory arthritis. SI joint x- rays are normal. Dermatology started Otezla for treatment of psoriasis 01/2025, which also is indicated for psoriatic arthritis. Code(s): L40.50 - Arthropathic psoriasis, unspecified Category: Medical Plan: Continue Otezla prescribed by Dermatology Continue PT for lower extremity strengthening Return to clinic in 2 months (2) Myofascial low back pain: Comment: Exacerbated with recent PT session. We reviewed SI joint x-rays, which was normal November 2024. Discussed conservative management. Code(s): M54.50 - Low back pain, unspecified Category: Medical Plan: Start Flexeril 5 mg q.h.s. prn back pain. Discussed side effects of muscle relaxers and long-term dependence with chronic use She will ask PT for recommendations on TENs unit I will prepare letter for patient for her accommodations Continue applying ice or heat to back She will try Aleve 2 tablets OTC b.i.d. Continue PT Return to clinic in 2 months (3) Benign hypermobility syndrome: Comment: Discussed diagnosis. Improved with PT. No benefit with ibuprofen. Code(s): M35.7 - Hypermobility syndrome Category: Medical Plan: Continue physical therapy She will try Aleve 1-2 tablets twice a day Continue Tylenol 500 mg or 650 mg 1-2 tablets q.8 hourly PRN pain (4) Foot pain, bilateral: Code(s): M79.671 - Pain in right foot; M79.672 - Pain in left foot Category: Medical Plan: See above (5) Bilateral bunions: Code(s): M21.611 - Bunion of right foot; M21.612 - Bunion of left foot Category: Medical Plan: Wear supportive footwear Encouraged weight loss. She is working with PCP on weight loss plan (6) Silas's bunionette, bilateral: Code(s): M21.621 - Bunionette of right foot; M21.622 - Bunionette of left foot Category: Medical Plan: Wear supportive footwear Encouraged weight loss. She is working with PCP on weight loss planloss (7) Lumbar spondylosis: Comment: Mild on x-ray Code(s): M47.816 - Spondylosis without myelopathy or radiculopathy, lumbar region Category: Medical Plan: Continue to work with physical therapy with back strengthening Encouraged weight loss. She is working with PCP on weight loss plan (8) Cervical spondylosis: Comment: With myofascial strain contributing to loss of lordosis noted on x-ray. We discussed conservative management Code(s): M47.812 - Spondylosis without myelopathy or radiculopathy, cervical region Category: Medical Plan: She will work with HR to obtain ergonomic workstation with standing desk option. I will write letter to support this request. Can consider PT dedicated to neck pain in the future if needed Medications: New cyclobenzaprine 5 mg PO BEDTIME PRN 30 tabs 0RF muscle spasm M54.9 - Dorsalgia, unspecified Coding Level of Care Code Est Pt Level 4 (15539) Add On Problem Visit Only Diagnoses Psoriatic arthritis L40.50 Myofascial low back pain M54.50 Benign hypermobility syndrome M35.7 Foot pain, bilateral M79.671; M79.672 Bilateral bunions M21.611; M21.612 Tailor's bunionette, bilateral M21.621; M21.622 Lumbar spondylosis M47.816 Cervical spondylosis M47.812 Time Spent (min) 25
--- OUTSIDE RECORDS SUMMARY | 2025-05-10 09:40 | XMS_ITS | Patient Health Record ---
Author Organization [facility] Address [address] [place] [address] Care Team Providers Care Product Manager Name Role Phone MARIA E MARTÍNEZ Unavailable [phone] Allergies Allergen (clinical drug ingredient) Drug/Non Drug Allergy documented on EMR Reaction Allergy Type Onset Date Status Cat dander Cat Dander Unknown Allergy Active Dust Mites Unknown Allergy Active Results Component Value Reference Range Flag Notes HCV Antibody-[id number] Reviewed date:08/11/2024 11:04:34 AM Interpretation:Negative Performing Lab:[facility] [place], [address], [address], [place], Phone - [phone], Director - [facility] Notes/Report: Clinical Information:SRC:urine Hep C Virus Ab Non Reactive Non Reactive HCV antibody alone does not differentiate between previously resolved infection and active infection. Equivocal and Reactive HCV antibody results should be followed up with an HCV RNA test to support the diagnosis of active HCV infection. Ct/GC ARIEL, Pharyngeal-[id number] Reviewed date:08/11/2024 11:49:39 AM Interpretation:Negative Performing Lab:[facility] [place], [address], [address], [place], Phone - [phone], Director - [facility] Notes/Report: Clinical Information:SRC:urine C. trachomatis, ARIEL, Pharyn Negative Negative N. gonorrhoeae, ARIEL, Pharyn Negative Negative Ct, Ng, Trich vag by ARIEL-[id number] Reviewed date:08/11/2024 11:49:48 AM Interpretation:Negative Performing Lab:[facility] [place], [address], [address], [place], Phone - [phone], Director - [facility] Notes/Report: Clinical Information:SRC:urine Chlamydia by ARIEL Negative Negative Gonococcus by ARIEL Negative Negative Trich vag by ARIEL Negative Negative HIV Ab/p24 Ag with Reflex-[id number] Reviewed date:08/11/2024 11:04:50 AM Interpretation:Negative Performing Lab:[facility] [place], [address], [address], [place], Phone - [phone], Director - [facility] Notes/Report: Clinical Information:SRC:urine HIV Ab/p24 Ag Screen Non Reactive Non Reactive HIV-1/HIV-2 antibodies and HIV-1 p24 antigen were NOT detected. There is no laboratory evidence of HIV infection. HIV Negative T pallidum Screening [place] -[id number] Reviewed date:08/11/2024 11:04:57 AM Interpretation:Negative Performing Lab:[facility] [place], [address], [address], [place], Phone - [phone], Director - [facility] Notes/Report: Clinical Information:SRC:urine T pallidum Antibodies Non Reactive Non Reactive Hepatitis B Surf Ab Quant-[id number] Reviewed date:08/10/2024 12:13:49 PM Interpretation:Not Immune Performing Lab:[facility] [place], [address], [address], [place], Phone - [phone], Director - [facility] Notes/Report: Clinical Information:SRC:urine Hepatitis B Surf Ab Quant 8.4 Immunity>10 mIU/mL L Status of Immunity Anti-HBs Level Inconsistent with Immunity 0.0 - 10.0 Consistent with Immunity >10.0 HBsAg Screen-[id number] Reviewed date:08/11/2024 11:04:41 AM Interpretation:Negative Performing Lab:[facility] [place], [address], [address], [place], Phone - [phone], Director - [facility] Notes/Report: Clinical Information:SRC:urine HBsAg Screen Negative [...] Number of assigned female at partners 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 [address] [place], [place] [id number] Andreina Munguia Self - patient is the insured Medications Administered Medication Instructions Date of Administration Dosage Notes Depo 150mg 02/12/2023 Depo 150mg 05/10/2023 Depo 150mg 08/06/2023 Medical (General) History Medical History History ICD Code Weight concerns PTSD Psoriatic arthritis, joint pain ADHD Functional autism Surgical History Surgery Date(Month/Year) 2024 broken leg
--- OUTSIDE RECORDS SUMMARY | 2025-05-10 09:40 | XMS_ITS | Clinical Summary ---
Author Organization [facility] Address [address] [place] [address] Phone Care Team Providers Care Emt/Paramedic Name Role Phone Saurav Mendoza MD Primary [...] topic Medical Devices Not on file Insurance [facility] NON NSPG PCP [employer] NON NSPG PCP [employer] NON NSPG PCP S[employer] NON NSPG PCP S[employer] [place] NON NSPG PCP [employer] [place] NON NSPG PCP [employer] Advance Directives For more information, please contact: [phone] (9AM - 5PM [facility], Wednesday-Wednesday) * Full Code (Latest Code Status on File) Date Activated Date Inactivated Comments 12/14/2024 9:33 AM Question Answer Comments Code Status Confirmed With: Patient Care Teams Emt/Paramedic Relationship Specialty Start Date End Date Saurav Mendoza MD PCP - General Family Medicine 09/14/24 Additional Source Comments The information contained in this document represents components of the legal health record. It is not the complete legal health record.[facility]
--- OUTSIDE RECORDS SUMMARY | 2025-05-10 09:41 | XMS_ITS | Patient Health Record ---
Author Organization [facility] Address [address] [place] [address] Support Name Relationship Address Phone [employer] Guarantor Unknown [phone] Reason For Referral No Information Plan Of Treatment No Information Insurance Providers Payer Name Payer Address Payer Phone Subscriber Number Group Number Insured Name Patient Relationship to Insured Coverage Start Date Coverage End Date [facility] [address] [address] [place], [place] [id number] [employer] Self - patient is the insured 2
--- OUTSIDE RECORDS SUMMARY | 2025-05-10 09:41 | XMS_ITS | Encounter Summary ---
Author Organization [facility] Address [address] [place] [address] Phone Care Team Providers Care Mobile Pet Groomer Name Role Phone Saruav Mendoza MD Primary Care Provider Encounter Details Date Type Department Care Team (Late st Contact Info) Description 12/14/2024 Procedure Pass OR Admitting Dept - Virtual Department [address] [place] [address] Social History Tobacco Use Types Packs/Day Years [...] on filedocumented in this encounter Care Teams Mobile Pet Groomer Relationship Specialty Start Date End Date Saurav Mendoza MD PCP - General Family Medicine 09/14/24 documented as of this encounter Additional Source Comments The information contained in this document represents components of the legal health record. It is not the complete legal health record.[facility]
== END 2025-05-10 09:37 | disposition home or self-care (01) ==
LOC: HO.RHES 08:56
PROVIDERS: PCP Family Medicine; Visit Provider Internal Medicine Rheumatology
DX: L40.50 Arthropathic psoriasis, unspecified (principal); M54.50 Low back pain, unspecified; M35.7 Hypermobility syndrome; M79.671 Pain in right foot; M79.672 Pain in left foot; M21.611 Bunion of right foot; M21.612 Bunion of left foot; M21.621 Bunionette of right foot; M21.622 Bunionette of left foot; M47.816 Spondylosis without myelopathy or radiculopathy, lumbar region; M47.812 Spondylosis without myelopathy or radiculopathy, cervical region
CPT/HCPCS: 99214

== ENCOUNTER → 2025-05-10 08:55 | Outpatient (BNVA) | payer OTHER, SELFPAY | PROVIDERS: PCP Family Medicine; Visit Provider Internal Medicine Rheumatology | DX: L40.50 Arthropathic psoriasis, unspecified (principal); M54.50 Low back pain, unspecified; M35.7 Hypermobility syndrome; M79.671 Pain in right foot; M79.672 Pain in left foot; M21.611 Bunion of right foot; M21.612 Bunion of left foot; M21.621 Bunionette of right foot; M21.622 Bunionette of left foot; M47.816 Spondylosis without myelopathy or radiculopathy, lumbar region; M47.812 Spondylosis without myelopathy or radiculopathy, cervical region; Z79.61 Long term (current) use of immunomodulator; Z79.899 Other long term (current) drug therapy | CPT/HCPCS: 99212 ==

== ENCOUNTER 2025-05-22 08:08 | Outpatient (RCR) | payer OTHER, SELFPAY ==
--- NOTE | 2025-04-17 11:49 | MHC.PT.EP ---
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 OBJECTIVE FINDINGS: HYPERMOBILE LUMBAR AND CERV REGIONS, STRENGTH DEFICITS IN Lt > Rt GLUTE COMPLEX AND GENERAL CORE REGION, DECR POSTURAL AWARENESS, AND FLUCTUATING PAIN IN MID CERV AND AARTI L/S REGIONS- SHE NOTES TINGLING IN AARTI LEs AT TIMES, DENIES BOWEL/ BLADDER SIGNS/ SXS. SHE IS LIMITED W STANDING, WALKING, PROLONGED SITTING, LIFTING/ CARRYING, AND MORE CHALLENGING/ DYNAMIC ADLs. WE DISCUSSSED PT POC AND Pt'S GOALS- WE WILL RESUME A COURSE OF PT AND THE Pt HAS BEEN EDUC THAT THIS WILL ENTAIL ACTIVE PARTICIPATION AND COMPLIANCY W HEP/ POSTURAL CORRECTION. Frequency and Duration: The patient will be seen 2 x WK x 5 WKS Short Term Goals: DECR CERV AND LS PAIN TO 2-3/10 Pt INDEP W SELF CORRECT POSTURE TO NEUTRAL , IN VARIED POSES INITIATE HEP Pt DEMON WFL SQUAT [facility] Residential Goals: Pt INDEP W HEP AND SELF SX MGMT TECHN Pt DEMON APPROP BODY [facility] W 3:3 SIMUL ADLs IMPROVED NPDI, AT EVAL 12/50 IMPROVED CORE STRENGTH EVIDENT W IMPROVED LUMBOPELVIC SYMMETRY SLS x 30 SEC EACH Treatment Plan: Modalities to reduce pain, spasms and effusion. Manual therapy to restore motion and function. Therapeutic exercise to improve strength and flexibility. Neuromuscular re-education for posture and balance. Therapeutic activities to return to functional activities of daily living. Electronically signed by: HAILE JESSICA,PT Please sign and return to therapist. Thank you for your referral.
--- NOTE | 2025-05-22 10:51 | MHC.PT.DC ---
[facility] [place] [facility] [place] [facility] [place] [facility] [address] [place] [address] [phone] F: [phone] F: [phone] F: [phone] F: [phone] Physical Therapy Discharge Report Diagnosis: SPONDYLOSIS CERVICAL AND LUMBAR REGIONS W/O MYELOPATHY-> EXERCISE STRENGTHENING PGM, MFR, MODALITIES, TENS Date of Surgery: Date of Evaluation: 04/17/25 Date of Discharge: 05/22/25 Treatments to Date: 8 Cancellations to Date: No Shows to Date: 1 Discharge Status: Achieved Goals Improved Function Independent with HEP Discharge Summary: ART HAS ADVANCED WELL IN PT, ADDRESSING HER CERVICAL AND LBP- SHE IS INDEP W POSTURAL SELF-CORRECTION AND DEMON MORE EFFICIENT BODY MECH W SIMUL ADLs- SHE HAS A THOROUGH HEP- SHE HAS IMPROVED CERV AROM, CORE STABILIZATION EVIDENT W WFL LUMBOPELVIC SYMM, AND DECR SUBJECTIVE SXS. HER NPDI AT D/C IS AND AT HER EVAL, . Electronically signed by: HAILE LOPEZ,PT Please sign and return to therapist. Thank you for your referral.
== END 2025-05-22 10:52 | disposition home or self-care (01) ==
LOC: HO.PT 08:08
PROVIDERS: PCP Family Medicine; Visit Provider Internal Medicine Rheumatology
DX: M47.816 Spondylosis without myelopathy or radiculopathy, lumbar region (principal); M47.812 Spondylosis without myelopathy or radiculopathy, cervical region
CPT/HCPCS: 97014; 97110; 97112; 97162; 97535